=== PATIENT | female | born 1965 | race Caucasian/White ===

== ENCOUNTER 2019-08-08 06:15 | Inpatient (IN) | payer OTHER, BC, SELFPAY ==
[2019-08-08] VITALS (7 sets, daily range): BP systolic 92–125; BP diastolic 53–67; PULSE 81–105; RESP 16–20; TEMP 37.1–39.1; O2SAT 93–97; BMI 34.7; BMI 34.9
[2019-08-08 06:26] LABS: Bedside Glucose 218 mg/dL (70-110)
[2019-08-08] MEDS: Ondansetron 4 MG/2 ML Vial IV (06:34)
[2019-08-08] MEDS: 0.9% Normal Saline 1,000 ML 1000 ML IV (06:34)
--- NOTE | 2019-08-08 06:47 | ED.DCSUM_ITS ---
History of Present Illness Chief Complaint: Nausea/Vomiting Narrative: Patient presenting for evaluation secondary to nausea and vomiting and high blood sugars. Patient reports that she is a type II diabetic, but has not been taking her diabetes medication for more than 2 years. She reports that since Tuesday she has been dealing with nausea and vomiting. The symptoms are intermittent, vomiting is nonbloody nonbilious and has been associated with crampy intermittent abdominal pain that is improved with a heating pad. Patient denies any fevers. She denies any diarrhea. Patient denies any sick contacts. She denies any chest pain or shortness of breath associated with this. She was concerned because her blood sugars were in the 200s, although she has not checked them for years and started checking them this week so she does not know what they have been running prior to this. Past Medical History - Allergies and Home Meds Allergies/Adverse Reactions: Allergies metformin [From Glucophage] Adverse Reaction (Verified 08/08/19 06:18) Rash tramadol Adverse Reaction (Verified 08/08/19 06:18) Vomiting Primary Care Physician: NOT,DEFINED [NON-STAFF] - Smoking Status: Never smoker Review of Systems All systems negative except as indicated General: Denies: Chills, Fever, Sweats Eyes: Denies: Visual changes - bilaterally, Diplopia ENT: Denies: Rhinorrhea, Sore throat Cardiovascular: Denies: Chest pain, Palpitations Respiratory: Denies: Dyspnea, Cough, Dyspnea on exertion Gastrointestinal: Reports: Abdominal pain, Nausea, Vomiting Genitourinary: Denies: Dysuria, Hematuria, Frequency Musculoskeletal: Denies: Back pain, Extremity Pain Skin: Denies: Rash, Wounds Neurological: Denies: Headache, Weakness, Numbness Physical Exam Vital Signs/Narrative: Vital Signs Temp Pulse Resp BP Pulse Ox 08/08/19 06:16 99.2 F H 105 H 18 125/63 H 97 Inital Vital Signs reviewed: Yes General: Well nourished, Well developed, No Acute Distress Head: Normocephalic, Atraumatic Eyes: Perrl, EOMI ENT: Moist mucous membranes, No rhinorrhea Neck: Supple, Nontender Cardiovascular: Regular rhythm, No murmurs, Tachycardia Respiratory: No distress, CTA bilaterally, Chest nontender Abdomen: Soft, Nontender, Nondistended, Normal bowel sounds Back: Nontender, Normal Inspection Extremities: Nontender, No edema Skin: Normal color, No rash Neurological: Alert, Oriented x3, Cranial nerves II-XII grossly intact, Normal Strength, Normal Sensation Psychological: Normal affect, Normal Mood Diagnostic/Tx/Re-eval - Medical Decision Making Patient presented secondary to nausea and vomiting. IV was established she was given Zofran and fluids. Laboratory work-up shows pancytopenia with blast cells. Patient was also noted to have acute kidney injury with a creatinine of 2 with a baseline of 0.7. Ketones were found to be negative. Patient was start ed on fluid resuscitation. I believe the patient requires admission at this point. Patient will be admitted for further work-up and treatment. ED Disposition - Plan for ED Patient: Disposition: Acute Care [facility] Diagnosis: Pancytopenia, Acute kidney injury
[2019-08-08 06:54] LABS: Hematocrit 35.9 % (37-47); Hemoglobin 11.8 g/dL (12.0-15.0); Mean Corp Hgb Conc 32.9 g/dL (32-36); Mean Corpuscular Hgb 28.5 pg (27.0-32.0); Mean Corpuscular Volume 86.7 fL (81-99); Mean Platelet Vol. 11.8 fl (6.2-12.0); POSITIVE COUNT YES; POSITIVE DIFFERENTIAL YES; POSITIVE MORPHOLOGY YES; Platelet Count 53 K/mm3 (150-450); RBC Distribution Width CV 13.6 % (11.6-14.6); RBC Distribution Width SD 43.1 fl (35.1-43.9); Red Blood Count 4.14 M/mm3 (4.2-5.4)
[2019-08-08 06:56] LABS: Differential Indicated MANUAL DIFF
[2019-08-08 07:11] LABS: ALB/GLOB Ratio 0.8 RATIO (0.9-2.4); AST(SGOT) 54 U/L (15-37); Alanine Aminotransfer ALT/SGPT 45 U/L (13-56); Albumin, Serum 3.3 g/dL (3.2-5.0); Alkaline Phosphatase 169 U/L (45-117); Anion Gap 8 (5-15); BUN 48 mg/dL (7-18); Chloride 97 mmol/L (98-107); Creatinine, Serum 2.09 mg/dL (0.55-1.02); EST Glomerular Filtration Rate 26 mL/min (>60); Est Glom Filt Rate - Afr Amer 32 mL/min (>60); Estimated Creatinine Clearance 26.26 ml/min; Globulin 3.9 g/dL (2.2-4.2); Glucose 245 mg/dL (74-106); Lipase 46 U/L (73-393); Potassium 3.3 mmol/L (3.5-5.1); Protein, Total 7.2 g/dL (6.4-8.2); Sodium Level 132 mmol/L (136-145)
[2019-08-08 07:19] LABS: Blast 1 % (0-0); Lymphocyte 8 % (19-41); Metamyelocyte 3 % (0-1); Monocyte 6 % (0-10); Neutrophil-Band 4 % (0-5); Neutrophil-Segmented 78 % (47-70); Platelet Estimate MOD DEC (ADEQ); Total Cells Counted 100 (MANUAL DIFF)
[2019-08-08 07:20] LABS: Anisocytosis RARE; Hypochromasia RARE
[2019-08-08 07:21] LABS: Absolute Neutrophil Count 2.4 X10^3/uL (2.0-7.7); Neutrophil # 2.43 X10^3/uL (2.7-7.7)
[2019-08-08 07:22] LABS: Absolute Lymphocyte Count 0.24 X10^3/uL (0.83-4.51); Lymphocyte # 0.24 X10^3/ul (4.0); Monocyte# 0.18 X10^3/uL
--- NOTE | 2019-08-08 07:32 | NURSING ---
DR ARINA ZAMAN
--- NOTE | 2019-08-08 07:40 | PCM.HP.STD ---
Problem List (1) DM2 (diabetes mellitus, type 2) Status: Chronic Qualifiers: Diabetes mellitus [facility] insulin use: without buttermaker helper use Diabetes mellitus complication status: with hyperglycemia Qualified Code(s): E11.65 - Type 2 diabetes mellitus with hyperglycemia (2) BMI 34.0-34.9,adult Status: Chronic (3) Acute kidney injury Status: Acute (4) Pancytopenia Status: Acute History of Present Illness Date of Admission: 08/08/19 Chief Complaint: Nausea and vomiting The patient is a 53 year old F last medical history single for diabetes mellitus type 2 apparently noncompliant with therapy who presented to the emergency department with intractable nausea and vomiting and elevated blood glucose. Patient symptoms started 3 days prior to being admitted. She states she is not been able to keep any food down. She also admitted to taking ibuprofen for generalized aches. In view of worsening condition patient elected to present to the emergency department. Patient was found to have glucose levels greater than 200. She was also found to be in acute kidney injury started on IV fluids admitted to regular nursing floor for further management. Prior to patient being admitted patient was also found to be pancytopenic. Past Medical History Past Medical History (Chronic Problems): Chronic Problems DM2 (diabetes mellitus, type 2) (Chronic) BMI 34.0-34.9,adult (Chronic) Allergies metformin [From Glucophage] Adverse Reaction (Verified 08/08/19 06:18) Rash tramadol Adverse Reaction (Verified 08/08/19 06:18) Vomiting Home Medications: Ambulatory Orders Medication Instructions Recorded Aspirin [Aspirin, Baby] 81 mg PO DAILY@0800 08/08/19 Multivitamin/Iron/Folic Acid 1 ea PO DAILY 08/08/19 [Centrum Adults Tablet] Ondansetron [Zofran Odt] 4 mg PO Q6H PRN PRN 08/08/19 Pioglitazone HCl 30 mg PO QHS 08/08/19 Ramipril 5 mg PO DAILY 08/08/19 Smoking Status: Never smoker - *Family History Maternal History Items: Diabetes Paternal History Items: Diabetes, Heart Disease - Dad from complications of congestive heart failure Review of Systems Constitutional: Reports: Anorexia, Malaise. Denies: Chills, Fever, Night Sweats, Weight Change HEENT: Denies: Head Aches, Sinus Congestion, Sinus Drainage Cardiovascular: Denies: Chest Pain, Orthopnea, Palpitations, Paroxysmal Noc. Dyspnea Respiratory: Denies: Cough, Shortness of breath at rest, Shortness of breath upon exertion, Sputum production Gastrointestinal: Reports: Nausea, Vomiting. Denies: Abdominal Pain, Hematemesis, Hematochezia, Melena Genitourinary: Denies: Dysuria, Frequency, Hematuria, Urgency Musculoskeletal: Denies: Joint Pain, Joint Tenderness Skin: Denies: Rash Neurological: Denies: Focal weakness, Numbness, Tingling Psychiatric: Denies: Homicidal Ideations, Suicidal Ideations Hematologic/ Lymphatic: Denies: Easy Bruising, Easy Bleeding VTE Information - Inpt Only VTE Present on Admission: No VTE Mechan Device Prophylaxis: None VTE Pharm Prophylaxis ordered?: No Reason prophylaxis not ordered:: Medical Contraindication Patient Problems: Active and Suspected Problems Pancytopenia (Acute) Acute kidney injury (Acute) Objective: GENERAL: cooperative appears ill looking HEENT: Atraumatic; EYES; Anicteric, Normal Conjunctiva NECK; supple, normal thyroid, RESPIRATORY: Diminished to auscultation CARDIOVASCULAR: Regular S1 S2, GI: soft, normoactive bowel sounds, : No Renal angle tenderness; EXTREMITIES: No edema, no clubbing, MUSCULOSKELETAL: no muscle waisting NEURO: Awake; no lateralizing signs. SKIN: No Rash PSYCH; Flat affect - Physical Exam Vitals/I&O's: Vital Signs Temp Pulse Resp BP Pulse Ox 99.2 F H 105 H 18 125/63 H 97 08/08/19 06:16 08/08/19 06:16 08/08/19 06:16 08/08/19 06:16 08/08/19 06:16 Oxygen Delivery Method Room Air Weight: 91.7 kg Body Mass Index (BMI) 34.7 Finger Stick Blood Glucose 218 Laboratory Results 08/08/19 06:20: POC Glucose 218 H 08/08/19 06:29: WBC 3.0 L, RBC 4.14 L, Hgb 11.8 L, Hct 35.9 L, MCV 86.7, MCH 28.5, MCHC 32.9, RDW Std Deviation 43.1, RDW Coeff of Divya 13.6, Plt Count 53 L, MPV 11.8, Neut % (Auto) Not Reportable, Absolute Neuts (auto) 2.4, Absolute Lymphs (auto) 0.24 L, Total Counted 100, Neutrophils % (Manual) 78 H, Band Neutrophils % 4, Lymphocytes % (Manual) 8 L, Monocytes % (Manual) 6, Metamyelocytes % 3 H, Blast Cells % 1 H*, Diff Path Review May foll, Platelet Estimate MOD DEC, Hypochromasia RARE, Anisocytosis RARE 08/08/19 06:29: Sodium 132 L, Potassium 3.3 L, Chloride 97 L, Carbon Dioxide 27.0, Anion Gap 8, BUN 48 H, Creatinine 2.09 H, Estim Creat Clear Calc 26.26, Est GFR (MDRD) Af Amer 32 L, Est GFR (MDRD) Non-Af 26 L, BUN/Creatinine Ratio 23.0 H, Glucose 245 H, Calcium 9.0, Total Bilirubin 0.80, AST 54 H, ALT 45, Alkaline Phosphatase 169 H, Total Protein 7.2, Albumin 3.3, Globulin 3.9, Albumin/Globulin Ratio 0.8 L, Lipase 46 L 08/08/19 06:29: Acetone Level NEGATIVE Assessment/Plan All Active Problems Pancytopenia (Acute) Acute kidney injury (Acute) Patient is a 53-year-old lady with history of diabetes mellitus type 2 noncompliant with therapy presented with intractable nausea and vomiting 1. Intractable nausea vomiting ?suspected to be secondary to gastritis possibly NSAID induced gastritis patient was taking ibuprofen prior to her admission discontinued. Started on PPI 2. Acute kidney injury Suspected to be combination of dehydration as well as NSAID induced nephropathy. On IV fluids with subsequent monitoring of electrolyte 2. Diabetes mellitus type 2 ?With complications including hyperglycemia as a result of noncompliance. Patient started on Accu-Cheks before meals and at bedtime with sliding scale coverage as well as long-acting insulin. Also placed on 1800 ADA diet and ordered hemoglobin A1c 4. Pancytopenia (thrombocytopenia, leukopenia, as well as anemia) ?Pressure diagnoses include bone marrow suppression as well as nonalcoholic fatty liver disease. Admitted to regular nursing floor ordered CBC with differential for monitoring consult also placed to oncology 5. Nonalcoholic fatty liver disease -per history, this may be contributing to patient's pancytopenia 6. Obesity with BMI of 34.9 ?Weight loss advised 7. DVT prophylaxis Did encourage early ambulation avoided the use of chemoprophylaxis in view of patient's low platelet count Code Visit Inpatient E&M: 15934 Init Hosp L3
--- NOTE | 2019-08-08 07:41 | NURSING ---
MED SURG TIMBO, PANCYTOPENIA KITTOE
--- NOTE | 2019-08-08 08:30 | US_ITS ---
STUDY: RENAL ULTRASOUND - COMPLETE REASON FOR EXAM: Female, 53 years old. renal failure CLINICAL HISTORY: 53 years Female, renal failure COMPARISON: None TECHNIQUE: Serial longitudinal and transverse scans of the kidneys were obtained utilizing a real-time sector scanner. FINDINGS: The right and left kidneys were examined and have the following measurements: Right Kidney: 10.7 cm. x 6.1 cm. x 6.1 cm. in size with a cortex measuring 0.95 cm in thickness. Left Kidney: 13.0 cm. x 6.4 cm. x 6.6 cm. in size with a cortex measuring 1.8 cm in thickness. No fluid is noted in Morison''s pouch. The right renal parenchyma has a normal echogenic relationship to the liver. The right renal contour is smooth and no evidence hydronephrosis is identified. There is normal Doppler flow to the right kidney. Left renal contour is smooth and no evidence of hydronephrosis is identified. There is normal Doppler flow to the left kidney. The urinary bladder is identified and contains 100 cc of urine. US/Kidney and Bladder IMPRESSION: The right kidney is smaller than the left, in this otherwise normal bilateral renal ultrasound. Electronically Signed: Yovani Barahona, at 12:01 EST Tel , Service support ,
[2019-08-08 10:43] LABS: AST(SGOT) 55 U/L (15-37); Alanine Aminotransfer ALT/SGPT 45 U/L (13-56); Albumin, Serum 3.5 g/dL (3.2-5.0); Alkaline Phosphatase 148 U/L (45-117); Bilirubin, Direct 0.49 mg/dL (0.00-0.30); Protein, Total 6.5 g/dL (6.4-8.2)
[2019-08-08 10:47] LABS: Pathologist Review Reviewed
[2019-08-08] MEDS: Insulin Lispro 100 UNIT/ML INSULN.PEN SC ×3 (11:23→22:58)
[2019-08-08] MEDS: 0.9% Saline Lock 10 ML Syringe IV ×2 (11:27→15:58)
[2019-08-08 11:35] LABS: Bedside Glucose 272 mg/dL (70-110)
--- NOTE | 2019-08-08 15:51 | CON.PCM_ITS ---
Subjective Date of Service:: 08/08/19 Chief Complaint: Pancytopenia History of Present Illness: Ms. Amarilys Calles is a 53-year-old woman with a past medical history positive for diabetes mellitus type 2, and fatty liver who presented to [facility] emergency department earlier this morning with complaints of intractable nausea vomiting and elevated blood sugars. CBC in the emergency department revealed pancytopenia as evidenced by white blood cell count 3, hemoglobin 11.8, and platelet count of 53,000, with metamyelocytes and blast count of 1%. Labs also revealed creatinine 2.09 notably normal calcium and normal protein and globulin levels. Patient was subsequently admitted and hematology consult requested. Upon entering the room patient is sitting upright in bed and is just produced emesis, consisting of applesauce she ate a moment earlier. States it has been a long time since she was evaluated by her primary care or system development manager. States she has been on insulin from 198912/12/2018, Lantus and log and also Actos but has been off of her medications for approximately 9 months citing I just ran out. Reports that she was in her usual state of health until 08/06/2019 when she developed nausea and subsequently has vomited approximately 5-6 times per day almost immediately after eating. She specifically denies fevers, recent weight loss, difficulty swallowing, headaches, diarrhea, and abdominal cramping. Last bowel movement was 08/07/2019. Reports that she has never been told her blood counts were low. Patient has undergone carpal tunnel surgery and also 1 vaginal delivery denies any episodes of excessive bleeding postsurgically or . She is not a smoker. No EtOH use. Admits to taking significant amounts of ibuprofen daily x2 weeks for generalized body aches. No family history of bleeding disorders, hypercoagulability or malignancy. Admits that it has been greater than 5 years since her last screening mammogram. Patient does not perform breast self exams monthly. Did undergo colonoscopy at age 48 and states it was normal. Past Medical History: Chronic Problems DM2 (diabetes mellitus, type 2) (Chronic) BMI 34.0-34.9,adult (Chronic) Past Medical/Surgical History: Past Medical History - Most Recent Inpatient Visit Past Medical History Start: 08/08/19 08:30 Text: Status: Complete Freq: ONCE Protocol: Document 08/08/19 08:30 (Rec: 08/08/19 08:53 [id number]) BMI Required to complete PMH What is Patient's BMI 34.9 Past Medical History Unable History Recalled No Query Text:Pt Unable/Family Not Present Neurologic Medical History Hx Stroke/TIA No Hx Dementia/Alzheimer's No Hx Parkinson's Disease No Hx Seizures No Hx Multiple Sclerosis No Hx Migraines No Cardiac Medical History VTE Present on Admission No Hx of Deep Vein Thrombosis/VTE/PE No Hx Hypertension Yes Hx Chest Pain/Angina No Hx Heart Attack No Hx Cardiac Surgery/Stents/Etc. No Hx Heart Failure No Hx Pacemaker/AICD No Hx Irregular Heartbeat and/or Afib No Hx Anticoagulant Therapy Yes: baby asa Query Text:(Coumadin, Aspirin, Plavix, Xarelto, etc.) Hx Pain in Legs when Walking/Leg Cramps No Respiratory Medical History Hx COPD No Hx Emphysema No Hx Smoking No Smoking Status Never smoker Hx Tobacco Use in last 12 months No Hx Sleep Apnea No Do you snore loudly (louder than talking No or can be heard through closed doors)? Do you often feel tired/ fatigued/ No sleepy during daytime? Has anyone observed you stop breathing No during sleep? STOP Results Negative GI Medical History Hx Ulcer No Hx Hepatitis No Hx Cirrhosis No Hx GI Bleed No Hx Unplanned Weight Loss No Genitourinary Medical History Indwelling Catheter in Place on Arrival/ No Admission Hx Renal Disease No Hx Dialysis No Musculoskeletal History Hx Arthritis No Hx Rheumatoid Arthritis No Endocrine Medical History Hx Diabetes Yes Hx Thyroid Disease No Hematologic Medical History Hx of Blood Transfusion No Hx of Transfusion in last 3 Months No Ever experience any problems with No transfusion(s)? Hx of Preganancy in last 3 Months N/A Nurse Filling Out Transfusion & SHESS Questions: Date: 08/08/19 Time: 08:51 Psycho/Social Medical History Hx Depression No Hx Anxiety No Hx Behavior Disorder No Hx Alcohol Use Yes: socially Hx Substance Use No Other Medical History Hx Blood Disorders No Hx Anemia No Hx Cancer No Hx Drug Resistant Organism No Wound/Pressure Injury Present on Arrival No /Admission Query Text:If yes, chart assessment in Shift/Clinical Findings Central Line/PICC/VAD Present on Arrival No /Admission Antibiotics within last 7 days? No Methicillin Resistant Staphylococcus aureus Screening Active MRSA No Risk for Readmission Number of Risk Factors 2 At Risk for Readmission Patient is At Risk For Readmission Patient is eligible for Call Back Y Maternal Family History: Diabetes Paternal Family History: Diabetes, Heart Disease - Dad from complications of congestive heart failure - Social History Smoking Status: Never smoker Allergies/Adverse Reactions: Allergy/AdvReac Type Severity Reaction Status Date / Time metformin [From Glucophage] AdvReac Rash Verified 08/08/19 06:18 tramadol AdvReac Vomiting Verified 08/08/19 06:18 Review of Systems Constitutional:: Reports: Weakness. Denies: Fever, Sweats, Weight loss, Appetite change, Chills Cardiovascular:: Denies: Chest pain, Palpitations, Dyspnea on exertion, Orthopnea, PND, Shortness of breath Respiratory: Denies: Cough, Hemoptysis, Shortness of Breath, Wheezing Gastrointestinal:: Reports: Nausea, Vomiting. Denies: Abdominal pain, Diarrhea, Constipation, Hematochezia Genitourinary: Denies: Dysuria, Hematuria, 15, Flank pain Musculoskeletal:: Denies: Back pain, Myalgia, Arthralgia Skin: Denies: Rash, Skin Changes, Wounds Neurological:: Denies: Headache, Dizziness, Numbness, Tingling, Visual changes, Tinnitus, Hearing loss Psychiatric: Denies: Anxiety, Depression, Homicidal Ideations, Suicidal Ideations Vital Signs Height 5 ft 4 in Weight: 203 lb 7.787 oz Weight in Pounds 203.5 lbs Pulse Ox 97 Temperature 99.0 F Pulse Rate 81 Respiratory Rate 18 Blood Pressure 105/53 Blood Pressure Position Semi-Fowlers - Physical Exam General: Alert, Oriented x3, No apparent distress HEENT: Atraumatic, PERRLA, EOMI, Normocephalic Oropharynx:: Negative for: Dry mucosa Neck:: Supple, Trachea midline. Negative for: JVD, bilateral Cardiac:: Regular rate, Regular rhythm, Normal S1, Normal S2. Negative for: Murmur Lungs: Clear to auscultation, Excusion symmetrical. Negative for: Rhonchi, Wheezes Abdomen:: Bowel sounds x 4, Soft, Non-distended, Tender - Bilateral lower quadrants. Negative for: Hepatosplenomegaly Extremities:: Negative for: Cyanosis, Edema Neurological: Neuro grossly intact Skin:: Negative for: Lesions, Rash, Petechiae, Ecchymosis Psychiatric:: Appropriate affect, Euthymic Lymphatics:: Negative for: Cervical lymphadenopathy, Supraclavicular lymphadenopathy, Axillary lymphadenopathy Breast:: - - Declined exam Laboratory Data: Laboratory Tests 08/08/19 08/08/19 08/08/19 Range/Units 11:22 06:29 06:29 WBC (4.4-11.0) K/mm3 RBC (4.2-5.4) M/mm3 Hgb (12.0-15.0) g/dL Hct (37-47) % MCV (81-99) fL MCH (27.0-32.0) pg MCHC (32-36) g/dL RDW Std Deviation (35.1-43.9) fl RDW Coeff of Divya (11.6-14.6) % Plt Count (150-450) K/mm3 MPV (6.2-12.0) fl Neut % (Auto) Absolute Neuts (auto) (2.0-7.7) X10^3/uL Absolute Lymphs (auto) (0.83-4.51) X10^3/uL Total Counted (MANUAL DIFF) Neutrophils % (Manual) (47-70) % Band Neutrophils % (0-5) % Lymphocytes % (Manual) (19-41) % Monocytes % (Manual) (0-10) % Metamyelocytes % (0-1) % Blast Cells % (0-0) % Diff Path Review Platelet Estimate (ADEQ) Hypochromasia Anisocytosis Sodium (136-145) mmol/L Potassium (3.5-5.1) mmol/L Chloride (98-107) mmol/L Carbon Dioxide (21.0-32.0) mmol/L Anion Gap (5-15) BUN (7-18) mg/dL Creatinine (0.55-1.02) mg/dL Estim Creat Clear Calc ml/min Est GFR (MDRD) Af Amer (>60) mL/min Est GFR (MDRD) Non-Af (>60) mL/min BUN/Creatinine Ratio (10-20) RATIO Glucose (74-106) mg/dL Calcium (8.5-10.1) mg/dL Total Bilirubin 1.00 (0.20-1.00) mg/dL Direct Bilirubin 0.49 H (0.00-0.30) mg/dL AST 55 H (15-37) U/L ALT 45 (13-56) U/L Alkaline Phosphatase 148 H (45-117) U/L Total Protein 6.5 (6.4-8.2) g/dL Albumin 3.5 (3.2-5.0) g/dL Globulin 3.0 (2.2-4.2) g/dL Albumin/Globulin Ratio (0.9-2.4) RATIO Lipase (73-393) U/L Acetone Level NEGATIVE (NEG) POC Glucose 272 H (70-110) mg/dL 08/08/19 08/08/19 08/08/19 Range/Units 06:29 06:29 06:20 WBC 3.0 L (4.4-11.0) K/mm3 RBC 4.14 L (4.2-5.4) M/mm3 Hgb 11.8 L (12.0-15.0) g/dL Hct 35.9 L (37-47) % MCV 86.7 (81-99) fL MCH 28.5 (27.0-32.0) pg MCHC 32.9 (32-36) g/dL RDW Std Deviation 43.1 (35.1-43.9) fl RDW Coeff of Divya 13.6 (11.6-14.6) % Plt Count 53 L (150-450) K/mm3 MPV 11.8 (6.2-12.0) fl Neut % (Auto) Not Reportable Absolute Neuts (auto) 2.4 (2.0-7.7) X10^3/uL Absolute Lymphs (auto) 0.24 L (0.83-4.51) X10^3/uL Total Counted 100 (MANUAL DIFF) Neutrophils % (Manual) 78 H (47-70) % Band Neutrophils % 4 (0-5) % Lymphocytes % (Manual) 8 L (19-41) % Monocytes % (Manual) 6 (0-10) % Metamyelocytes % 3 H (0-1) % Blast Cells % 1 H* (0-0) % Diff Path Review Reviewed Platelet Estimate MOD DEC (ADEQ) Hypochromasia RARE Anisocytosis RARE Sodium 132 L (136-145) mmol/L Potassium 3.3 L (3.5-5.1) mmol/L Chloride 97 L (98-107) mmol/L Carbon Dioxide 27.0 (21.0-32.0) mmol/L Anion Gap 8 (5-15) BUN 48 H (7-18) mg/dL Creatinine 2.09 H (0.55-1.02) mg/dL Estim Creat Clear Calc 26.26 ml/min Est GFR (MDRD) Af Amer 32 L (>60) mL/min Est GFR (MDRD) Non-Af 26 L (>60) mL/min BUN/Creatinine Ratio 23.0 H (10-20) RATIO Glucose 245 H (74-106) mg/dL Calcium 9.0 (8.5-10.1) mg/dL Total Bilirubin 0.80 (0.20-1.00) mg/dL Direct Bilirubin (0.00-0.30) mg/dL AST 54 H (15-37) U/L ALT 45 (13-56) U/L Alkaline Phosphatase 169 H (45-117) U/L Total Protein 7.2 (6.4-8.2) g/dL Albumin 3.3 (3.2-5.0) g/dL Globulin 3.9 (2.2-4.2) g/dL Albumin/Globulin Ratio 0.8 L (0.9-2.4) RATIO Lipase 46 L (73-393) U/L Acetone Level (NEG) POC Glucose 218 H (70-110) mg/dL Diagnostic Data: Diagnostic Data Renal Ultrasound 08/08/19 08:30 IMPRESSION: The right kidney is smaller than the left, in this otherwise normal bilateral renal ultrasound. Electronically Signed: Yovani Brooklyn, at 12:01 EST Tel , Service support , Assessment and Plan Ms. Amarilys Calles is a 53-year-old woman with a past medical history positive for diabetes mellitus type 2, and fatty liver who has been admitted to [facility] through the emergency department for management of intractable nausea and vomiting and new finding of pancytopenia. 1. Pancytopenia-as evidenced by white blood cell count 3, hemoglobin 11.8, platelets 53,000. CBC notable for blast count 1% and metamyelocytes. Patient does not have any previous CBCs on record here for comparison and per patient self-report has never been told that her blood counts were abnormal. Orders placed for serum protein electrophoresis with immunofixation, free light chain assay, LDH, iron studies, PT, PTT, vitamin B, folate, TSH and bone marrow biopsy. 2. Abd pain-bilateral lower quadrants tender on exam. No hepatosplenomegaly appreciated. May consider CT abdomen and pelvis. Was discussed with Dr. Corbett who was in agreement with aforementioned plan. Marzena Llanos, MSN, [employer], AOCNP Medications: Prescriptions This Visit Medication Instructions Recorded Aspirin [Aspirin, Baby] 81 mg PO DAILY@0800 08/08/19 Multivitamin/Iron/Folic Acid 1 ea PO DAILY 08/08/19 [Centrum Adults Tablet] Ondansetron [Zofran Odt] 4 mg PO Q6H PRN PRN 08/08/19 Pioglitazone HCl 30 mg PO QHS 08/08/19 Ramipril 5 mg PO DAILY 08/08/19 Medications Added to Medication List This Visit Category Date Time Status 0.9% Normal Saline 250 ml Med 08/08/19 08:55 Active IV 15 mls/hr 0.9% Normal Saline 250 ml Med 08/08/19 08:55 Active IV 15 mls/hr 0.9% Saline Lock Med 08/08/19 08:55 Active 10 - 40 ml IV UD PRN Acetaminophen [Tylenol] Med 08/08/19 08:30 Active 650 mg PO Q6H PRN PRN Dextrose 10%-Water 250 ml Med 08/08/19 08:45 Active IV 999 mls/hr Glucagon Med 08/08/19 08:30 Active 1 mg IM .X1 PRN Influenza Vaccine (36Mos+)/Pf [Flucelvax /Fluzone 2018- Med 08/09/19 10:00 Onc e 2020] 0.5 ml IM .ONCE ONE Insulin Glargine [Lantus ([facility])] Med 08/08/19 08:30 Active 10 units SC BREAKFAST Insulin Lispro [Humalog kwikpen ([facility])] Med 08/08/19 11:00 Active See Protocol SC ACHS KCL 20MEQ in 0.9% NS 1,000 ml Med 08/08/19 09:00 Active IV 150 mls/hr Mag Hydrox/Al Hydrox/Simeth [Mylanta II] Med 08/08/19 08:30 Active 30 ml PO Q6H PRN PRN Magnesium Hydroxide [Milk Of Magnesia] Med 08/08/19 08:30 Active 30 ml PO DAILY PRN PRN Melatonin Med 08/08/19 08:30 Active 3 mg PO QHS PRN PRN Ondansetron [Zofran] Med 08/08/19 08:30 Active 4 mg IV Q8H PRN PRN Pantoprazole Sodium [Protonix] 40 mg Med 08/08/19 10:00 Active 0.9% Normal Saline 100 ml IV Q12 proCHLORPERazine IV [Compazine IV] Med 08/08/19 08:30 Active 5 mg IV Q4H PRN PRN Primary Care Provider: No Primary Care Phys Referring Provider:
[2019-08-08] MEDS: proCHLORPERazine 10 MG/2 ML Vial 5 MG IV (15:58)
[2019-08-08 17:06] LABS: Bedside Glucose 228 mg/dL (70-110)
[2019-08-08 17:16] LABS: Ferritin 214 ng/mL (8-252); Iron 8 ug/dL (50-170); Iron Binding Capacity,Total 281 ug/dL (250-450); LDH 362 U/L (84-246); PERCENT IRON SATURATION 2.8 % (15.0-55.0); Thyroid Stim Hormone (TSH) 2.27 uIU/mL (0.358-3.74)
[2019-08-08 17:47] LABS: International Normalized Ratio 1.2; Prothrombin Time (Protime)PT. 14.7 SECONDS (11.7-14.9)
[2019-08-08 17:48] LABS: Partial Thromboplast Time 34.3 Seconds (24.1-36.2)
[2019-08-08] MEDS: Acetaminophen 325 MG Tablet 650 MG PO (17:52)
[2019-08-08 18:06] LABS: Vitamin B12 856 pg/mL (211-911)
[2019-08-08 23:16] LABS: Bedside Glucose 233 mg/dL (70-110)
[2019-08-09] VITALS (33 sets, daily range): BP systolic 85–144; BP diastolic 42–97; PULSE 83–139; RESP 18–40; TEMP 37.3–40.2; O2SAT 92–100
[2019-08-09] MEDS: 0.9% Saline Lock 10 ML Syringe IV ×2 (02:47→13:59)
[2019-08-09] MEDS: Ondansetron 4 MG/2 ML Vial IV (02:47)
[2019-08-09] MEDS: Acetaminophen 325 MG Tablet 650 MG PO ×2 (02:49→08:49)
[2019-08-09 05:32] LABS: Absolute Neutrophil Count 2.5 X10^3/uL (2.0-7.7); Basophil# 0.02 X10^3/uL; Basophil% 0.7 % (0-1); Eosinophil# 0.19 X10^3/uL; Eosinophils% 6.6 % (0-5); Hematocrit 30.3 % (37-47); Hemoglobin 9.9 g/dL (12.0-15.0); Lymphocyte % 3.4 % (19-41); Mean Corp Hgb Conc 32.7 g/dL (32-36); Mean Corpuscular Hgb 28.3 pg (27.0-32.0); Mean Corpuscular Volume 86.6 fL (81-99); Mean Platelet Vol. 10.2 fl (6.2-12.0); Monocyte# 0.12 X10^3/uL; Monocyte% 4.1 % (0-10); NRBC Flagged by Analyzer 0 % (0-5); Neutrophil # 2.46 X10^3/uL (2.7-7.7); Neutrophil % 84.9 % (47-70); POSITIVE COUNT YES; POSITIVE DIFFERENTIAL YES; POSITIVE MORPHOLOGY YES; RBC Distribution Width CV 14.1 % (11.6-14.6); RBC Distribution Width SD 44.7 fl (35.1-43.9); White Blood Count 2.9 K/mm3 (4.4-11.0)
[2019-08-09 05:40] LABS: Differential Indicated SCAN CRITERIA MET
[2019-08-09 05:41] LABS: Platelet Count 47 K/mm3 (150-450)
[2019-08-09 05:56] LABS: Anion Gap 8 (5-15); BUN 34 mg/dL (7-18); BUN/Creat Ratio 25.8 RATIO (10-20); Calcium,Total 8.1 mg/dL (8.5-10.1); Chloride 105 mmol/L (98-107); Creatinine, Serum 1.32 mg/dL (0.55-1.02); EST Glomerular Filtration Rate 44 mL/min (>60); Est Glom Filt Rate - Afr Amer 54 mL/min (>60); Estimated Creatinine Clearance 41.58 ml/min; Glucose 189 mg/dL (74-106); Potassium 3.9 mmol/L (3.5-5.1); Sodium Level 135 mmol/L (136-145)
[2019-08-09 06:05] LABS: Differential Comment SCANNED
[2019-08-09 06:06] LABS: Platelet Estimate MKD DEC (ADEQ)
[2019-08-09] MEDS: Insulin Lispro 100 UNIT/ML INSULN.PEN SC ×4 (06:38→21:19)
--- NOTE | 2019-08-09 06:49 | RAD_ITS ---
EXAM DESCRIPTION: PORTABLE AP CHEST CLINICAL HISTORY: 53 years Female, SOB SOB COMPARISON: None FINDINGS: The thorax is intact. The heart and mediastinum appear to be within normal limits. The lungs appear to be well areated without evidence of pneumonic consolidation or pleural effusion. RAD/Chest 1 View (Portable) IMPRESSION: Normal portable chest. Electronically Signed: Yovani Barahona, at 10:29 EST Tel , Service support ,
--- NOTE | 2019-08-09 07:01 | NURSING ---
upon entering pt's room noticed pt had labored breathing and audible wheezes. pt shivering vigorously. a/ox3. denies pain. assessment and vs completed. notified MD and remained with pt.
[2019-08-09 07:05] LABS: Bedside Glucose 173 mg/dL (70-110)
--- NOTE | 2019-08-09 07:26 | PCM.PN.HOSP ---
Patient Problems: Active and Suspected Problems Pancytopenia (Acute) Acute kidney injury (Acute) Reason for Visit: Follow-up acute kidney injury, respiratory distress, pancytopenia Subjective: Patient is a 53-year-old lady with history of diabetes mellitus type 2 noncompliant with therapy presented with intractable nausea and vomiting. Patient was found acute kidney injury started on IV fluids admitted to regular nursing floor for further management. Patient was also pancytopenic on admission consult placed to oncology Patient on the morning of 08/09/2019 was found to be dyspneic at rest with, tachycardic elevated temperature diagnosis of sepsis made. Cultures including acute respiratory viral panel as well as chest x-ray ordered. Patient transferred to the intensive care unit for further management Objective: GENERAL: Dyspneic at rest HEENT: Flushed EYES; Anicteric, Normal Conjunctiva NECK; supple, normal thyroid, RESPIRATORY: Diminished to auscultation CARDIOVASCULAR: Regular S1 S2, tachycardic GI: soft, normoactive bowel sounds, : No Renal angle tenderness; EXTREMITIES: No edema, no clubbing, MUSCULOSKELETAL: no muscle waisting NEURO: Awake; no lateralizing signs. SKIN: No Rash PSYCH; Flat affect Vitals/I&O's: Vital Signs Temp Pulse Resp BP Pulse Ox 102.3 F H 113 H 30 H 118/97 H 93 08/09/19 06:50 08/09/19 06:50 08/09/19 06:50 08/09/19 06:50 08/09/19 06:50 Oxygen Delivery Method Room Air Weight: 92.3 kg Body Mass Index (BMI) 34.9 Finger Stick Blood Glucose 218 Intake and Output for Last 24 Hours 08/07/19 08/08/19 08/09/19 23:59 23:59 23:59 Intake Total 3647.5 / 4167.5 / 2011. Output Total 500 / 500 Balance 3647.5 / 4017.5 1512.5 / 1512.5 Laboratory Results 08/08/19 06:29: Diff Path Review Reviewed 08/08/19 06:29: Total Bilirubin 1.00, Direct Bilirubin 0.49 H, AST 55 H, ALT 45, Alkaline Phosphatase 148 H, Total Protein 6.5, Albumin 3.5, Globulin 3.0 08/08/19 06:29: Iron 8 L, TIBC 281, Iron Saturation 2.8 L, Ferritin 214, Lactate Dehydrogenase 362 H, Folate 17.70, TSH 2.27 08/08/19 06:29: Vitamin B12 856 08/08/19 11:22: POC Glucose 272 H 08/08/19 16:04: POC Glucose 228 H 08/08/19 17:26: PT 14.7, INR 1.2, APTT 34.3 08/08/19 17:26: Total Protein (PEP) Pending, IgG Pending, IgA Pending, IgM Pending, Albumin (RA) Pending, Albumin/Globulin (RA) Pending, [id number] RA Pending, [id number] RA Pending, Beta-Globulins (RA) Pending, Gamma Globulins (RA) Pending, RA M-Hermelindo Pending, Free [place] LC, Quant Pending, Free Lambda LC, Quant Pending, Free [place]/Lambda Ratio Pending 08/08/19 22:57: POC Glucose 233 H 08/09/19 05:20: WBC 2.9 L, RBC 3.50 L, Hgb 9.9 L, Hct 30.3 L, MCV 86.6, MCH 28.3, MCHC 32.7, RDW Std Deviation 44.7 H, RDW Coeff of Divya 14.1, Plt Count 47 L*, MPV 10.2, Immature Gran % (Auto) 0.300, Neut % (Auto) 84.9 H, Lymph % (Auto) 3.4 L, Whitley % (Auto) 4.1, Eos % (Auto) 6.6 H, Baso % (Auto) 0.7, Absolute Neuts (auto) 2.5, Absolute Lymphs (auto) 0.10 L, Nucleated RBC % 0, Differential Comment SCANNED, Platelet Estimate MKD 08/09/19 05:20: Sodium 135 L, Potassium 3.9, Chloride 105, Carbon Dioxide 22.0, Anion Gap 8, BUN 34 H, Creatinine 1.32 H, Estim Creat Clear Calc 41.58, Est GFR (MDRD) Af Amer 54 L, Est GFR (MDRD) Non-Af 44 L, BUN/Creatinine Ratio 25.8 H, Glucose 189 H, Calcium 8.1 L 08/09/19 06:35: POC Glucose 173 H 08/09/19 07:10: Lactic Acid Pending Current Medications Acetaminophen (Tylenol) 650 mg PO Q6H PRN PRN PRN Reason: Pain Score 1-10/Temp > 100.7 F Last Admin: 08/09/19 02:49 Dose: 650 mg Documented by: Al Hydroxide/Mg Hydroxide (Mylanta Ii) 30 ml PO Q6H PRN PRN PRN Reason: Gastric Burning Glucagon () 1 mg IM .X1 PRN PRN Reason: Hypoglycemia Potassium Chloride/Sodium Chloride () 1,000 mls @ 150 mls/hr IV .[id number] AKUA Stop: 08/09/19 18:19 Last Admin: 08/09/19 06:19 Dose: 150 mls/hr Documented by: Dextrose (Dextrose 10%-Water) 250 mls @ 999 mls/hr IV .Q16M PRN; Protocol PRN Reason: HYPOGLYCEMIA Sodium Chloride () 250 mls @ 15 mls/hr IV .[id number] PRN PRN Reason: Saline Flush Sodium Chloride () 250 mls @ 15 mls/hr IV .[id number] PRN PRN Reason: Additional IVPB Infusion Pantoprazole Sodium 40 mg/ (Sodium Chloride) 110 mls @ 330 mls/hr IV Q12 AKUA Last Infusion: 08/08/19 23:22 Dose: Infused Documented by: Piperacillin Sod/Tazobactam (Sod 3.375 gm/ Sodium Chloride) 50 mls @ 12.5 mls/hr IV Q8 AKUA Vancomycin IV Pharmacy to Dose (1 ea/ Sodium Chloride) 500 mls @ 250 mls/hr IV X1 PRN; Protocol PRN Reason: Rx to Dose Influenza Virus Vaccine Quadrival (Flucelvax /Fluzone ) 0.5 ml IM .ONCE ONE Stop: 08/09/19 10:01 Insulin Glargine (Lantus (Bkc)) 10 units SC BREAKFAST [facility] Last Admin: 08/08/19 11:24 Dose: 10 u Documented by: Insulin Human Lispro (Humalog Kwikpen (Bkc)) 0 unit SC ACHS [facility]; Protocol Last Admin: 08/09/19 06:38 Dose: 2 u Documented by: Magnesium Hydroxide (Milk Of Magnesia) 30 ml PO DAILY PRN PRN PRN Reason: Constipation Melatonin (Melatonin) 3 mg PO QHS PRN PRN PRN Reason: INSOMNIA Ondansetron HCl (Zofran) 4 mg IV Q8H PRN PRN PRN Reason: NAUSEA/VOMITING Last Admin: 08/09/19 02:47 Dose: 4 mg Documented by: Prochlorperazine Edisylate (Compazine Iv) 5 mg IV Q4H PRN PRN PRN Reason: Breakthrough nausea/vomiting Last Admin: 08/08/19 15:58 Dose: 5 mg Documented by: Sodium Chloride () 10 - 40 ml IV UD PRN PRN Reason: SALINE FLUSH Last Admin: 08/09/19 02:47 Dose: 10 ml Documented by: STROKE Vital Signs/Narrative: Vital Signs Temp Pulse Resp BP Pulse Ox 08/09/19 06:50 102.3 F H 113 H 30 H 118/97 H 93 Medical Necessity - Tobacco Use Smoking Status: Never smoker Assessment/Plan All Active Problems Pancytopenia (Acute) Acute kidney injury (Acute) Patient is a 53-year-old lady with history of diabetes mellitus type 2 noncompliant with therapy presented with intractable nausea and vomiting 1. Intractable nausea vomiting ?suspected to be secondary to gastritis possibly NSAID induced gastritis patient was taking ibuprofen prior to her admission discontinued. Started on PPI -08/09/2019 patient still remains symptomatic 2. Acute kidney injury -Suspected to be combination of dehydration as well as NSAID induced nephropathy. On IV fluids with subsequent monitoring of electrolyte ?08/09/2019: Kidney function still remains impaired on IV fluids with subsequent monitoring of electrolyte 3. Sepsis (of undetermined etiology at this point) Patient on the morning of 08/09/2019 was found to be dyspneic at rest with, tachycardic with elevated temperature. Patient met the criteria for sepsis.. Cultures including acute respiratory viral panel as well as chest x-ray ordered. Patient transferred to the intensive care unit for further management. Patient was also started on broad-spectrum antibiotic therapy 4. Pancytopenia (thrombocytopenia, leukopenia, as well as anemia) ?Differential diagnoses include bone marrow suppression as well as nonalcoholic fatty liver disease. Admitted to regular nursing floor ordered CBC with differential for monitoring consult also placed to oncology ?08/09/2019 patient was seen in consultation by oncology the day prior notes and recommendations reviewed 5. Diabetes mellitus type 2 ?With complications including hyperglycemia as a result of noncompliance. Patient started on Accu-Cheks before meals and at bedtime with sliding scale coverage as well as long-acting insulin. Also placed on 1800 ADA diet and ordered hemoglobin A1c 6. Nonalcoholic fatty liver disease -per history, this may be contributing to patient's pancytopenia 7. Obesity with BMI of 34.9 ?Weight loss advised 8. DVT prophylaxis Did encourage early ambulation avoided the use of chemoprophylaxis in view of patient's low platelet count Code Visit Inpatient E&M: 89282 Subs Hosp L3
--- NOTE | 2019-08-09 07:29 | NURSING ---
called report to SANGITA Braden in ICU
[2019-08-09 07:51] LABS: Lactic Acid 1.2 mmol/L (0.4-1.9)
--- NOTE | 2019-08-09 08:03 | PCM.CON.CC ---
Reason for Consult Date of Consultation: 08/09/19 History of Present Illness: The patient is a 53-year-old female, with a history as outlined below, who initially presented to the emergency department on August 08 with complaints of nausea and vomiting of 3 days duration. The patient does have a history of diabetes mellitus, for which she is noncompliant with an outpatient diabetic regimen. The patient reported no shortness of breath or cough. She does not recall any recent sick contact exposure. On presentation to the emergency department, the patient was noted to be febrile and tachycardic. However, she was hemodynamically stable and maintaining appropriate oxygen saturations on room air. Initial laboratory evaluation revealed evidence of pancytopenia. Chemistry profile was notable for a sodium of 132, potassium of 3.3, chloride of 97, and creatinine of 2.09. Glucose was elevated to 245. Lipase was negative. Acetone level was negative. The patient received supplemental IV fluid hydration and antiemetics in the emergency department. She was then admitted to the medical surgical floor for further management of her acute kidney injury and pancytopenia. Overnight, the patient spiked a high-grade fever to 102.3 ?F. Her blood pressures were a bit on the tenuous side as well. Therefore, the patient was transferred to the medical intensive care unit for further management. Past Medical History Past Medical History (Chronic Problems): Chronic Problems DM2 (diabetes mellitus, type 2) (Chronic) BMI 34.0-34.9,adult (Chronic) Allergies metformin [From Glucophage] Adverse Reaction (Verified 08/08/19 06:18) Rash tramadol Adverse Reaction (Verified 08/08/19 06:18) Vomiting Home Medications: Ambulatory Orders Medication Instructions Recorded Aspirin [Aspirin, Baby] 81 mg PO DAILY@0800 08/08/19 Multivitamin/Iron/Folic Acid 1 ea PO DAILY 08/08/19 [Centrum Adults Tablet] Ondansetron [Zofran Odt] 4 mg PO Q6H PRN PRN 08/08/19 Pioglitazone HCl 30 mg PO QHS 08/08/19 Ramipril 5 mg PO DAILY 08/08/19 Smoking Status: Never smoker - *Family History Maternal History Items: Diabetes Paternal History Items: Diabetes, Heart Disease - Dad from complications of congestive heart failure Review of Systems Constitutional: Reports: Fever, Malaise Eyes: Denies: Blurred vision, Double vision HEENT: Denies: Head Aches, Sinus Congestion, Sinus Drainage Cardiovascular: Denies: Chest Pain, Palpitations Respiratory: Denies: Cough, Shortness of breath at rest, Sputum production Gastrointestinal: Reports: Nausea, Vomiting. Denies: Abdominal Pain, Diarrhea Genitourinary: Denies: Dysuria Musculoskeletal: Denies: Joint Pain, Joint Tenderness Skin: Denies: Rash, Wounds Neurological: Denies: Numbness, Tingling, Focal weakness Psychiatric: Denies: Anxiety, Depression, Homicidal Ideations, Suicidal Ideations Hematologic/ Lymphatic: Reports: Anemia Patient Problems: Active and Suspected Problems Pancytopenia (Acute) Acute kidney injury (Acute) Objective: The patient's most recent lab work, culture data and imaging studies have all been personally reviewed. - Physical Exam Vitals/I&O's: Vital Signs Temp Pulse Resp BP Pulse Ox 101.4 F H 100 28 H 109/60 94 08/09/19 07:44 08/09/19 07:44 08/09/19 07:44 08/09/19 07:44 08/09/19 07:44 Oxygen Delivery Method Room Air Weight: 203 lb 7.787 oz Body Mass Index (BMI) 34.9 Finger Stick Blood Glucose 218 Intake and Output for Last 24 Hours 08/07/19 08/08/19 08/09/19 23:59 23:59 23:59 Intake Total 3647.5 / 4167.5 2253.0 / 2253.0 Output Total 700 / 700 Balance 3647.5 / 4017.5 1553.0 / 1553.0 General: Alert, Oriented x3, Cooperative, No apparent distress HEENT: Atraumatic, PERRLA, Normocephalic Oral: No Gingival or Mucosal Lesions/ Ulcerations Neck: Supple, No Nodes, Trachea Midline Lungs: Normal air movement, No rhonchi, No wheeze, No rales Cardiovascular: Regular rate, Regular Rhythm, Normal S1, Normal S2 Abdomen: Bowel Sounds Present, Soft, Non Tender Extremities: No clubbing, No cyanosis, No edema Musculoskeletal: No Tenderness to Palpation of Joints or Extremities Lymphatic: No Cervical, Supraclavicular, or Inguinal Adenopathy Neurological: Neuro grossly intact Psych/Mental Status: Flat Affect Labs (Last 48 Hours) 08/08/19 08/08/19 08/08/19 06:20 06:29 06:29 WBC 3.0 L RBC 4.14 L Hgb 11.8 L Hct 35.9 L MCV 86.7 MCH 28.5 MCHC 32.9 RDW Std Deviation 43.1 RDW Coeff of Divya 13.6 Plt Count 53 L MPV 11.8 Immature Gran % (Auto) Neut % (Auto) Not Reportable Lymph % (Auto) [place] % (Auto) Eos % (Auto) Baso % (Auto) Absolute Neuts (auto) 2.4 Absolute Lymphs (auto) 0.24 L Total Counted 100 Neutrophils % (Manual) 78 H Band Neutrophils % 4 Lymphocytes % (Manual) 8 L Monocytes % (Manual) 6 Metamyelocytes % 3 H Blast Cells % 1 H* Nucleated RBC % Differential Comment Diff Path Review Reviewed Platelet Estimate MOD DEC Hypochromasia RARE Anisocytosis RARE PT INR APTT Sodium 132 L Potassium 3.3 L Chloride 97 L Carbon Dioxide 27.0 Anion Gap 8 BUN 48 H Creatinine 2.09 H Estim Creat Clear Calc 26.26 Est GFR (MDRD) Af Amer 32 L Est GFR (MDRD) Non-Af 26 L BUN/Creatinine Ratio 23.0 H Glucose 245 H Lactic Acid Calcium 9.0 Iron TIBC Iron Saturation Ferritin Total Bilirubin 0.80 Direct Bilirubin AST 54 H ALT 45 Alkaline Phosphatase 169 H Lactate Dehydrogenase Total Protein 7.2 Total Protein (PEP) Albumin 3.3 Globulin 3.9 Albumin/Globulin Ratio 0.8 L Lipase 46 L Vitamin B12 Folate TSH Acetone Level IgG IgA IgM Albumin (RA) Albumin/Globulin (RA) Qsfoo-9-Orqdelwbx RA Vqjrn-3-Krsusgbsj RA Beta-Globulins (RA) Gamma Globulins (RA) RA M-Hermelindo Free [place] LC, Quant Free Lambda LC, Quant Free [place]/Lambda Ratio POC Glucose 218 H 08/08/19 08/08/19 08/08/19 06:29 06:29 06:29 WBC RBC Hgb Hct MCV MCH MCHC RDW Std Deviation RDW Coeff of Divya Plt Count MPV Immature Gran % (Auto) Neut % (Auto) Lymph % (Auto) [place] % (Auto) Eos % (Auto) Baso % (Auto) Absolute Neuts (auto) Absolute Lymphs (auto) Total Counted Neutrophils % (Manual) Band Neutrophils % Lymphocytes % (Manual) Monocytes % (Manual) Metamyelocytes % Blast Cells % Nucleated RBC % Differential Comment Diff Path Review Platelet Estimate Hypochromasia Anisocytosis PT INR APTT Sodium Potassium Chloride Carbon Dioxide Anion Gap BUN Creatinine Estim Creat Clear Calc Est GFR (MDRD) Af Amer Est GFR (MDRD) Non-Af BUN/Creatinine Ratio Glucose Lactic Acid Calcium Iron 8 L TIBC 281 Iron Saturation 2.8 L Ferritin 214 Total Bilirubin 1.00 Direct Bilirubin 0.49 H AST 55 H ALT 45 Alkaline Phosphatase 148 H Lactate Dehydrogenase 362 H Total Protein 6.5 Total Protein (PEP) Albumin 3.5 Globulin 3.0 Albumin/Globulin Ratio Lipase Vitamin B12 Folate 17.70 TSH 2.27 Acetone Level NEGATIVE IgG IgA IgM Albumin (RA) Albumin/Globulin (RA) Qpesd-5-Pkibtbmmm RA Bipwu-1-Mdrssmdnt RA Beta-Globulins (RA) Gamma Globulins (RA) RA M-Hermelindo Free [place] LC, Quant Free Lambda LC, Quant Free [place]/Lambda Ratio POC Glucose 08/08/19 08/08/19 08/08/19 06:29 11:22 16:04 WBC RBC Hgb Hct MCV MCH MCHC RDW Std Deviation RDW Coeff of Divya Plt Count MPV Immature Gran % (Auto) Neut % (Auto) Lymph % (Auto) [place] % (Auto) Eos % (Auto) Baso % (Auto) Absolute Neuts (auto) Absolute Lymphs (auto) Total Counted Neutrophils % (Manual) Band Neutrophils % Lymphocytes % (Manual) Monocytes % (Manual) Metamyelocytes % Blast Cells % Nucleated RBC % Differential Comment Diff Path Review Platelet Estimate Hypochromasia Anisocytosis PT INR APTT Sodium Potassium Chloride Carbon Dioxide Anion Gap BUN Creatinine Estim Creat Clear Calc Est GFR (MDRD) Af Amer Est GFR (MDRD) Non-Af BUN/Creatinine Ratio Glucose Lactic Acid Calcium Iron TIBC Iron Saturation Ferritin Total Bilirubin Direct Bilirubin AST ALT Alkaline Phosphatase Lactate Dehydrogenase Total Protein Total Protein (PEP) Albumin Globulin Albumin/Globulin Ratio Lipase Vitamin B12 856 Folate TSH Acetone Level IgG IgA IgM Albumin (RA) Albumin/Globulin (RA) Bvcij-5-Oqniyhfmv RA Fosls-3-Qcjpbotfa RA Beta-Globulins (RA) Gamma Globulins (RA) RA M-Hermelindo Free [place] LC, Quant Free Lambda LC, Quant Free [place]/Lambda Ratio POC Glucose 272 H 228 H 08/08/19 08/08/19 08/08/19 17:26 17:26 22:57 WBC RBC Hgb Hct MCV MCH MCHC RDW Std Deviation RDW Coeff of Divya Plt Count MPV Immature Gran % (Auto) Neut % (Auto) Lymph % (Auto) [place] % (Auto) Eos % (Auto) Baso % (Auto) Absolute Neuts (auto) Absolute Lymphs (auto) Total Counted Neutrophils % (Manual) Band Neutrophils % Lymphocytes % (Manual) Monocytes % (Manual) Metamyelocytes % Blast Cells % Nucleated RBC % Differential Comment Diff Path Review Platelet Estimate Hypochromasia Anisocytosis PT 14.7 INR 1.2 APTT 34.3 Sodium Potassium Chloride Carbon Dioxide Anion Gap BUN Creatinine Estim Creat Clear Calc Est GFR (MDRD) Af Amer Est GFR (MDRD) Non-Af BUN/Creatinine Ratio Glucose Lactic Acid Calcium Iron TIBC Iron Saturation Ferritin Total Bilirubin Direct Bilirubin AST ALT Alkaline Phosphatase Lactate Dehydrogenase Total Protein Total Protein (PEP) Pending Albumin Globulin Albumin/Globulin Ratio Lipase Vitamin B12 Folate TSH Acetone Level IgG Pending IgA Pending IgM Pending Albumin (RA) Pending Albumin/Globulin (RA) Pending Saofl-6-Gdhterbxm RA Pending Unzqy-5-Sgnyyqfdc RA Pending Beta-Globulins (RA) Pending Gamma Globulins (RA) Pending RA M-Hermelindo Pending Free [place] LC, Quant Pending Free Lambda LC, Quant Pending Free [place]/Lambda Ratio Pending POC Glucose 233 H 08/09/19 08/09/19 08/09/19 05:20 05:20 06:35 WBC 2.9 L RBC 3.50 L Hgb 9.9 L Hct 30.3 L MCV 86.6 MCH 28.3 MCHC 32.7 RDW Std Deviation 44.7 H RDW Coeff of Divya 14.1 Plt Count 47 L* MPV 10.2 Immature Gran % (Auto) 0.300 Neut % (Auto) 84.9 H Lymph % (Auto) 3.4 L [place] % (Auto) 4.1 Eos % (Auto) 6.6 H Baso % (Auto) 0.7 Absolute Neuts (auto) 2.5 Absolute Lymphs (auto) 0.10 L Total Counted Neutrophils % (Manual) Band Neutrophils % Lymphocytes % (Manual) Monocytes % (Manual) Metamyelocytes % Blast Cells % Nucleated RBC % 0 Differential Comment SCANNED Diff Path Review Platelet Estimate MKD DEC Hypochromasia Anisocytosis PT INR APTT Sodium 135 L Potassium 3.9 Chloride 105 Carbon Dioxide 22.0 Anion Gap 8 BUN 34 H Creatinine 1.32 H Estim Creat Clear Calc 41.58 Est GFR (MDRD) Af Amer 54 L Est GFR (MDRD) Non-Af 44 L BUN/Creatinine Ratio 25.8 H Glucose 189 H Lactic Acid Calcium 8.1 L Iron TIBC Iron Saturation Ferritin Total Bilirubin Direct Bilirubin AST ALT Alkaline Phosphatase Lactate Dehydrogenase Total Protein Total Protein (PEP) Albumin Globulin Albumin/Globulin Ratio Lipase Vitamin B12 Folate TSH Acetone Level IgG IgA IgM Albumin (RA) Albumin/Globulin (RA) Dyavz-1-Oogezoxzt RA Zsjpt-1-[place] RA Beta-Globulins (RA) Gamma Globulins (RA) RA M-Hermelindo Free [place] LC, Quant Free Lambda LC, Quant Free [place]/Lambda Ratio POC Glucose 173 H 08/09/19 07:10 WBC RBC Hgb Hct MCV MCH MCHC RDW Std Deviation RDW Coeff of Divya Plt Count MPV Immature Gran % (Auto) Neut % (Auto) Lymph % (Auto) [place] % (Auto) Eos % (Auto) Baso % (Auto) Absolute Neuts (auto) Absolute Lymphs (auto) Total Counted Neutrophils % (Manual) Band Neutrophils % Lymphocytes % (Manual) Monocytes % (Manual) Metamyelocytes % Blast Cells % Nucleated RBC % Differential Comment Diff Path Review Platelet Estimate Hypochromasia Anisocytosis PT INR APTT Sodium Potassium Chloride Carbon Dioxide Anion Gap BUN Creatinine Estim Creat Clear Calc Est GFR (MDRD) Af Amer Est GFR (MDRD) Non-Af BUN/Creatinine Ratio Glucose Lactic Acid 1.2 Calcium Iron TIBC Iron Saturation Ferritin Total Bilirubin Direct Bilirubin AST ALT Alkaline Phosphatase Lactate Dehydrogenase Total Protein Total Protein (PEP) Albumin Globulin Albumin/Globulin Ratio Lipase Vitamin B12 Folate TSH Acetone Level IgG IgA IgM Albumin (RA) Albumin/Globulin (RA) Sxtui-5-[place] RA Slshu-6-Tofpxswuz RA Beta-Globulins (RA) Gamma Globulins (RA) RA M-Hermelindo Free [place] LC, Quant Free Lambda LC, Quant Free [place]/Lambda Ratio POC Glucose Clinical Impression(s) from Imaging Studies Renal Ultrasound 08/08/19 08:30 IMPRESSION: The right kidney is smaller than the left, in this otherwise normal bilateral renal ultrasound. Electronically Signed: Yovani Barahona, at 12:01 EST Tel , Service support , Current Medications Acetaminophen (Tylenol) 650 mg PO Q6H PRN PRN PRN Reason: Pain Score 1-10/Temp > 100.7 F Last Admin: 08/09/19 02:49 Dose: 650 mg Documented by: Al Hydroxide/Mg Hydroxide (Mylanta Ii) 30 ml PO Q6H PRN PRN PRN Reason: Gastric Burning Glucagon () 1 mg IM .X1 PRN PRN Reason: Hypoglycemia Potassium Chloride/Sodium Chloride () 1,000 mls @ 150 mls/hr IV .[id number] AKUA Stop: 08/09/19 18:19 Last Admin: 08/09/19 06:19 Dose: 150 mls/hr Documented by: Dextrose (Dextrose 10%-Water) 250 mls @ 999 mls/hr IV .Q16M PRN; Protocol PRN Reason: HYPOGLYCEMIA Sodium Chloride () 250 mls @ 15 mls/hr IV .[id number] PRN PRN Reason: Saline Flush Last Infusion: 08/09/19 07:28 Dose: 0 mls/hr Documented by: Sodium Chloride () 250 mls @ 15 mls/hr IV .[id number] PRN PRN Reason: Additional IVPB Infusion Pantoprazole Sodium 40 mg/ (Sodium Chloride) 110 mls @ 330 mls/hr IV Q12 [facility] Last Infusion: 08/08/19 23:22 Dose: Infused Documented by: Piperacillin Sod/Tazobactam (Sod 3.375 gm/ Sodium Chloride) 50 mls @ 12.5 mls/hr IV Q8 [facility] Last Admin: 08/09/19 07:26 Dose: 12.5 mls/hr Documented by: Vancomycin IV Pharmacy to Dose (1 ea/ Sodium Chloride) 500 mls @ 250 mls/hr IV X1 PRN; Protocol PRN Reason: Rx to Dose Vancomycin HCl 2,000 mg/ (Sodium Chloride) 540 mls @ 250 mls/hr IV X1 ONE Stop: 08/09/19 11:09 Influenza Virus Vaccine Quadrival (Flucelvax /Fluzone ) 0.5 ml IM .ONCE ONE Stop: 08/09/19 10:01 Insulin Glargine (Lantus (Bkc)) 10 units SC BREAKFAST [facility] Last Admin: 08/08/19 11:24 Dose: 10 u Documented by: Insulin Human Lispro (Humalog Kwikpen (Bkc)) 0 unit SC ACHS [facility]; Protocol Last Admin: 08/09/19 06:38 Dose: 2 u Documented by: Magnesium Hydroxide (Milk Of Magnesia) 30 ml PO DAILY PRN PRN PRN Reason: Constipation Melatonin (Melatonin) 3 mg PO QHS PRN PRN PRN Reason: INSOMNIA Ondansetron HCl (Zofran) 4 mg IV Q8H PRN PRN PRN Reason: NAUSEA/VOMITING Last Admin: 08/09/19 02:47 Dose: 4 mg Documented by: Prochlorperazine Edisylate (Compazine Iv) 5 mg IV Q4H PRN PRN PRN Reason: Breakthrough nausea/vomiting Last Admin: 08/08/19 15:58 Dose: 5 mg Documented by: Sodium Chloride () 10 - 40 ml IV UD PRN PRN Reason: SALINE FLUSH Last Admin: 08/09/19 02:47 Dose: 10 ml Documented by: Assessment/Plan Active and Suspected Problems Pancytopenia (Acute) Acute kidney injury (Acute) RECOMMENDATIONS: 1. Agree with broad-spectrum antimicrobials, pending infectious work-up. 2. Obtain blood and urine cultures. Check respiratory viral panel. 3. Cautious use of fluids, as the patient is already been volume resuscitated over the last [address] central venous catheter and initiate Levophed to maintain a mean arterial pressure at or above 65 mmHg. 5. Due to persistent high-grade fevers of unclear origin, will obtain CT chest along with abdomen/pelvis. IMPRESSIONS: 1. Gram-negative septic shock Technically, the patient met severe sepsis criteria with elevated temperature, leukopenia and tachypnea. In addition, she does have documented mean arterial pressures less than 65 mmHg. She has now clinically deteriorated into septic shock, which will require vasopressor support. The exact etiology for the patient's infection is a bit unclear. Blood and urine cultures are pending. A central venous catheter will be placed to facilitate Levophed administration. Given the patient's high-grade fevers with unclear source of infection, will obtain CT chest/abdomen/pelvis. Given that the patient has already been on supplemental IV fluids since yesterday and is currently over 6 L positive for the hospital admission, I would recommend not giving the conventional 30 cc/kg fluid bolus. 2. Acute kidney injury Likely prerenal in etiology, as the patient's creatinine is improving with volume resuscitation. Continue to monitor urine output. There is no current indication for renal replacement therapy. 3. Pancytopenia Defer management and work-up to hematology. 4. Diabetes mellitus/SOTELO/obesity Complicates care, management, recovery and prognosis. TIME: 42 minutes of critical care time, independent of procedures, was spent addressing the patient's gram-negative septic shock, acute kidney injury, pancytopenia, review of all data and collaboration with the care team. ([id number]) Code Visit 9xxxx: [id number] Critical care first hour
[2019-08-09 08:46] LABS: Mucous, Urine 0 SEEN /hpf (<or=2+); Red Blood Cells-Urine 0 SEEN /hpf (0-5); Squamous Epithelial Cells - UA 0 SEEN /hpf (5-10)
[2019-08-09] MEDS: Lactated Ringers 500 ML 999 ML IV (09:04)
[2019-08-09 09:05] LABS: Color, Urine Yellow (Yellow); Glucose, Dipstick 50 mg/dl (Normal); Leukocyte Esterase-Dipstick 25 /ul (Negative); Nitrite-Dipstick Negative (Negative); Occult Blood-Urine 250 /ul (Negative); Protein-Dipstick 100 mg/dl (Negative); Specific Gravity, Urine 1.015 (1.002-1.030); Urine Clarity Clear (Clear); Urine Urobilinogen 8 mg/dl (Normal)
[2019-08-09 09:06] LABS: Urine Bilirubin Dipstick 1 mg/dL (Negative)
[2019-08-09 09:11] LABS: Ketone-Dipstick 150 mg/dl (Negative)
[2019-08-09 09:12] LABS: Bacteria 1+ /hpf (None Seen); White Blood Cells 0-5 SEEN /hpf (0-5)
[2019-08-09 09:13] LABS: Amorphous Sediment 2+
[2019-08-09 09:55] LABS: Bedside Glucose 174 mg/dL (70-110)
--- NOTE | 2019-08-09 10:46 | PCM.RX.CS ---
Consult Pharmacy has been consulted to manage selected antiobiotic: Vancomycin Type of Consult: New start Suspected Infection: Sepsis Labs: Sodium 135 mmol/L (136-145) L 08/09/19 05:20 Potassium 3.9 mmol/L (3.5-5.1) 08/09/19 05:20 Chloride 105 mmol/L (98-107) 08/09/19 05:20 Carbon Dioxide 22.0 mmol/L (21.0-32.0) 08/09/19 05:20 Anion Gap 8 (5-15) 08/09/19 05:20 BUN 34 mg/dL (7-18) H 08/09/19 05:20 Creatinine 1.32 mg/dL (0.55-1.02) H 08/09/19 05:20 Est GFR (MDRD) Af Amer 54 mL/min (>60) L 08/09/19 05:20 Est GFR (MDRD) Non-Af 44 mL/min (>60) L 08/09/19 05:20 BUN/Creatinine Ratio 25.8 RATIO (10-20) H 08/09/19 05:20 Glucose 189 mg/dL (74-106) H 08/09/19 05:20 Weight used for dosin kg Estimated Creatinine Clearance: 53ml/min Goal Trough: 15-20 mcg/mL Pharmacy Plan for Drug Dosing: Pt to receive a 25mg/kg loading dose of Vancomycin 2000mg IV x1 on 08/09/19 at ~0900. Based on pt's weight and CrCl recommend an initial dose of Vancomycin 1000mg IV q12h to start 08/09/19 at 2100. Trough to be drawn before the 4th total dose on 08/10/19 at 2030. CrCl was based on adjusted body weight of 69.74kg. Pharmacy Service will continue to monitor and adjust dosing as required. Follow-Up Labs: Trough Vancomycin - 08/10/19 at 2030
--- NOTE | 2019-08-09 11:08 | RAD_ITS ---
EXAM DESCRIPTION: PORTABLE AP CHEST CLINICAL HISTORY: 53 years Female, Central line placement Central line placement COMPARISON: Previous AP portable chest obtained on 08/09/2019 at 7:25 AM FINDINGS: A right IJ CVP line catheter secured in place with its tip in superior vena cava. The rest of the thorax is intact. The heart and mediastinum appear to be within normal limits. The lungs appear to be well areated without evidence of pneumonic consolidation or pleural effusion. RAD/CXR for Line Placement IMPRESSION: Normal portable chest. Electronically Signed: Yovani Barahona, at 11:28 EST Tel , Service support ,
--- NOTE | 2019-08-09 11:38 | PCM.OPRPT ---
Report of Operation Date of Procedure: 08/09/19 Surgery/Procedure Performed:: Triple-lumen catheter insertion Description of Surgical Findings:: Central line placement procedure note Indication: IV access/hemodynamic instability/vasoactive medications Procedure: A time-out was completed to verify correct patient, indication, medication allergies, procedure, coagulation studies, informed consent signed, and equipment needed. The patient was placed in the supine position for a central line placement to the rt IJ vein. The patients rt neck was prepped using chlorhexidine and a full body sterile drape was applied. 1% lidocaine was used to anesthetize the surrounding skin. A 7fr 16 cm blue guard triple lumen catheter introduced into the internal jugular vein using the modified Seldinger technique with the assistance of ultrasound. The catheter was threaded smoothly over the guidewire, the guidewire was removed easily, nonpulsatile blood returned. All ports were aspirated of air and flushed with sterile saline. The catheter was sutured in place and covered with an occlusive dressing impregnated with chlorhexidine. Post-procedure: The patient tolerated the procedure well. Vital signs remained stable. EBL 5 cc. No complications. Chest X Ray ordered to confirm tip placement and the absence of pneumothorax. Code Visit Procedures: 13478 Insert Non-tunnel CV Cath
--- NOTE | 2019-08-09 12:12 | SEPSIS_ITS ---
Sepsis Note - Physical Exam/Vitals Subjective: I have reassessed the patient's hemodynamic status following IV fluid res uscitation. Objective: Chest X-Ray 08/09/19 06:49 IMPRESSION: Normal portable chest. Electronically Signed: Yovani Barahona, at 10:29 EST Tel , Service support , Chest X-Ray 08/09/19 11:08 IMPRESSION: Normal portable chest. Electronically Signed: Yovani Barahona, at 11:28 EST Tel , Service support , Temp Pulse Resp BP Pulse Ox 99.4 F H 87 21 H 110/55 L 96 08/09/19 12:00 08/09/19 12:00 08/09/19 12:00 08/09/19 12:00 08/09/19 12:00 08/09/19 08/09/19 08/09/19 09:43 08:30 08:30 WBC RBC Hgb Hct MCV MCH MCHC RDW Std Deviation RDW Coeff of Divya Plt Count MPV Immature Gran % (Auto) Neut % (Auto) Lymph % (Auto) [place] % (Auto) Eos % (Auto) Baso % (Auto) Absolute Neuts (auto) Absolute Lymphs (auto) Nucleated RBC % Differential Comment Platelet Estimate PT INR APTT Sodium Potassium Chloride Carbon Dioxide Anion Gap BUN Creatinine Estim Creat Clear Calc Est GFR (MDRD) Af Amer Est GFR (MDRD) Non-Af BUN/Creatinine Ratio Glucose Lactic Acid Calcium Iron TIBC Iron Saturation Ferritin Lactate Dehydrogenase Total Protein (PEP) Vitamin B12 Folate TSH Urine Color Yellow Urine Clarity Clear Urine pH 6.0 Ur Specific [place] 1.015 Urine Protein 100 H Urine Glucose (UA) 50 H Urine Ketones 150 H Urine Occult Blood 250 H Urine Nitrite Negative Urine Bilirubin 1 H Urine Urobilinogen 8 H Ur Leukocyte Esterase 25 H Urine RBC 0 SEEN Urine WBC 0-5 SEEN Ur Squamous Epith Cells 0 SEEN Amorphous Sediment 2+ Urine Bacteria 1+ Urine Mucus 0 SEEN IgG IgA IgM Albumin (RA) Albumin/Globulin (RA) Kjgpm-1-Nipasifqs RA Eofsc-0-Pkowdosrn RA Beta-Globulins (RA) Gamma Globulins (RA) RA M-Hermelindo Free [place] LC, Quant Free Lambda LC, Quant [place]/Lambda Ratio MRSA (PCR) Pending POC Glucose 174 H 08/09/19 08/09/19 08/09/19 07:10 06:35 05:20 WBC RBC Hgb Hct MCV MCH MCHC RDW Std Deviation RDW Coeff of Divya Plt Count MPV Immature Gran % (Auto) Neut % (Auto) Lymph % (Auto) [place] % (Auto) Eos % (Auto) Baso % (Auto) Absolute Neuts (auto) Absolute Lymphs (auto) Nucleated RBC % Differential Comment Platelet Estimate PT INR APTT Sodium 135 L Potassium 3.9 Chloride 105 Carbon Dioxide 22.0 Anion Gap 8 BUN 34 H Creatinine 1.32 H Estim Creat Clear Calc 41.58 Est GFR (MDRD) Af Amer 54 L Est GFR (MDRD) Non-Af 44 L BUN/Creatinine Ratio 25.8 H Glucose 189 H Lactic Acid 1.2 Calcium 8.1 L Iron TIBC Iron Saturation Ferritin Lactate Dehydrogenase Total Protein (PEP) Vitamin B12 Folate TSH Urine Color Urine Clarity Urine pH Ur Specific [place] Urine Protein Urine Glucose (UA) Urine Ketones Urine Occult Blood Urine Nitrite Urine Bilirubin Urine Urobilinogen Ur Leukocyte Esterase Urine RBC Urine WBC Ur Squamous Epith Cells Amorphous Sediment Urine Bacteria Urine Mucus IgG IgA IgM Albumin (RA) Albumin/Globulin (RA) Tmroj-5-Rvgwrmbju RA Yghhp-2-Ufxcgbzuc RA Beta-Globulins (RA) Gamma Globulins (RA) RA M-Hermelindo Free [place] LC, Quant Free Lambda LC, Quant [place]/Lambda Ratio MRSA (PCR) POC Glucose 173 H 08/09/19 08/08/19 08/08/19 05:20 22:57 17:26 WBC 2.9 L RBC 3.50 L Hgb 9.9 L Hct 30.3 L MCV 86.6 MCH 28.3 MCHC 32.7 RDW Std Deviation 44.7 H RDW Coeff of Divya 14.1 Plt Count 47 L* MPV 10.2 Immature Gran % (Auto) 0.300 Neut % (Auto) 84.9 H Lymph % (Auto) 3.4 L [place] % (Auto) 4.1 Eos % (Auto) 6.6 H Baso % (Auto) 0.7 Absolute Neuts (auto) 2.5 Absolute Lymphs (auto) 0.10 L Nucleated RBC % 0 Differential Comment SCANNED Platelet Estimate MKD DEC PT INR APTT Sodium Potassium Chloride Carbon Dioxide Anion Gap BUN Creatinine Estim Creat Clear Calc Est GFR (MDRD) Af Amer Est GFR (MDRD) Non-Af BUN/Creatinine Ratio Glucose Lactic Acid Calcium Iron TIBC Iron Saturation Ferritin Lactate Dehydrogenase Total Protein (PEP) Pending Vitamin B12 Folate TSH Urine Color Urine Clarity Urine pH Ur Specific [place] Urine Protein Urine Glucose (UA) Urine Ketones Urine Occult Blood Urine Nitrite Urine Bilirubin Urine Urobilinogen Ur Leukocyte Esterase Urine RBC Urine WBC Ur Squamous Epith Cells Amorphous Sediment Urine Bacteria Urine Mucus IgG Pending IgA Pending IgM Pending Albumin (RA) Pending Albumin/Globulin (RA) Pending Pzpop-5-Ywsyfkdtv RA Pending Ersoa-0-Eonytdhwo RA Pending Beta-Globulins (RA) Pending Gamma Globulins (RA) Pending RA M-Hermelindo Pending Free [place] LC, Quant Pending Free Lambda LC, Quant Pending Free [place]/Lambda Ratio Pending MRSA (PCR) POC Glucose 233 H 08/08/19 08/08/19 08/08/19 17:26 16:04 06:29 WBC RBC Hgb Hct MCV MCH MCHC RDW Std Deviation RDW Coeff of Divya Plt Count MPV Immature Gran % (Auto) Neut % (Auto) Lymph % (Auto) [place] % (Auto) Eos % (Auto) Baso % (Auto) Absolute Neuts (auto) Absolute Lymphs (auto) Nucleated RBC % Differential Comment Platelet Estimate PT 14.7 INR 1.2 APTT 34.3 Sodium Potassium Chloride Carbon Dioxide Anion Gap BUN Creatinine Estim Creat Clear Calc Est GFR (MDRD) Af Amer Est GFR (MDRD) Non-Af BUN/Creatinine Ratio Glucose Lactic Acid Calcium Iron TIBC Iron Saturation Ferritin Lactate Dehydrogenase Total Protein (PEP) Vitamin B12 856 Folate TSH Urine Color Urine Clarity Urine pH Ur Specific [place] Urine Protein Urine Glucose (UA) Urine Ketones Urine Occult Blood Urine Nitrite Urine Bilirubin Urine Urobilinogen Ur Leukocyte Esterase Urine RBC Urine WBC Ur Squamous Epith Cells Amorphous Sediment Urine Bacteria Urine Mucus IgG IgA IgM Albumin (RA) Albumin/Globulin (RA) Qcyec-3-Trsojqnel RA Qrgyi-6-Ewguaeoiv RA Beta-Globulins (RA) Gamma Globulins (RA) RA M-Hermelindo Free [place] LC, Quant Free Lambda LC, Quant [place]/Lambda Ratio MRSA (PCR) POC Glucose 228 H 08/08/19 06:29 WBC RBC Hgb Hct MCV MCH MCHC RDW Std Deviation RDW Coeff of Divya Plt Count MPV Immature Gran % (Auto) Neut % (Auto) Lymph % (Auto) [place] % (Auto) Eos % (Auto) Baso % (Auto) Absolute Neuts (auto) Absolute Lymphs (auto) Nucleated RBC % Differential Comment Platelet Estimate PT INR APTT Sodium Potassium Chloride Carbon Dioxide Anion Gap BUN Creatinine Estim Creat Clear Calc Est GFR (MDRD) Af Amer Est GFR (MDRD) Non-Af BUN/Creatinine Ratio Glucose Lactic Acid Calcium Iron 8 L TIBC 281 Iron Saturation 2.8 L Ferritin 214 Lactate Dehydrogenase 362 H Total Protein (PEP) Vitamin B12 Folate 17.70 TSH 2.27 Urine Color Urine Clarity Urine pH Ur Specific [place] Urine Protein Urine Glucose (UA) Urine Ketones Urine Occult Blood Urine Nitrite Urine Bilirubin Urine Urobilinogen Ur Leukocyte Esterase Urine RBC Urine WBC Ur Squamous Epith Cells Amorphous Sediment Urine Bacteria Urine Mucus IgG IgA IgM Albumin (RA) Albumin/Globulin (RA) Rrttm-1-Ajvpntzba RA Ldvhi-8-Fcaicunok RA Beta-Globulins (RA) Gamma Globulins (AR) RA M-Hermelindo Free [place] LC, Quant Free Lambda LC, Quant [place]/Lambda Ratio MRSA (PCR) POC Glucose General: Alert Lungs: Normal air movement Cardiovascular: Regular rate, Regular Rhythm Capillary Refill: <3 seconds Peripheral Pulses: Normal Skin Color: Owen - Assessment/Plan As per consultation note.
--- NOTE | 2019-08-09 13:22 | ECHOD_ITS ---
Reason For Study: DYSPNEA/SOB Procedure This was a 2D Doppler, Color Flow transthoracic echocardiogram. The study was technically difficult. Definity deferred due to increased PAP. Exam performed portable in ICU/CCU. Left Ventricle Normal LV size. The estimated ejection fraction is 70-75 %. No evidence for diastolic dysfunction. Left ventricular systolic function is hyperdynamic. No regional wall motion abnormalities noted. Right Ventricle Normal RV size. Normal systolic function. Atria Normal left atrium. Normal right atrium. No doppler evidence for ASD. Mitral Valve There is no mitral valve stenosis. No mitral valve insufficiency. Tricuspid Valve There is no tricuspid stenosis. No tricuspid valve insufficiency. Unable to estimate RV systolic pressure due to inadequate jet, pulmonary artery pressure probably normal. Aortic Valve The aortic valve is not well visualized. There is no aortic stenosis. No aortic valve insufficiency. Pulmonic Valve There is no pulmonic valvular stenosis. No pulmonic valve insufficiency. Great Vessels Normal aortic root. Pericardium/Pleural No pericardial effusion. MMode/2D Measurements & Calculations LVIDd: 4.6 cm IVSd: 0.72 cm Ao root diam: 3.1 cm LVIDs: 2.8 cm LVPWd: 0.78 cm RVDd: 3.4 cm FS: 38.5 % LAV(MOD-bp): 50.8 ml LVAd ap4: 25.0 cm2 SV(MOD-sp4): 51.5 ml LAV(MOD-bp) Indexed: 25.7 ml/m2 EDV(MOD-sp4): 66.8 ml LAV(MOD-sp2): 52.6 ml EDV(sp4-el): 70.4 ml LAV(MOD-sp4): 47.2 ml LVAs ap4: 10.6 cm2 ESV(MOD-sp4): 15.4 ml ESV(sp4-el): 15.0 ml EF(MOD-sp4): 77.0 % EF(sp4-el): 78.7 % SV(sp4-el): 55.4 ml LA A4 area: 17.8 cm2 LA dimension(2D): 3.6 cm RA A4 area: 12.9 cm2 Time Measurements MV dec time: 0.15 sec Doppler Measurements & Calculations MV E max markos: 114.5 cm/sec Lat Peak E' Markos: 15.9 cm/sec Med Peak E' Markos: 15.1 cm/sec MV A max markos: 137.6 cm/sec E/E' lat: 7.2 E/E' med: 7.6 MV E/A: 0.83 Ao V2 max: 228.2 cm/sec PA V2 max: 163.0 cm/sec TR max markos: 340.8 cm/sec Ao max P.8 mmHg TR max P.0 mmHg Interpretation Summary The estimated ejection fraction is 70-75 %. No evidence for diastolic dysfunction. Left ventricular systolic function is hyperdynamic. Ordering Physician: Kendrick Quintero Performed By: Kiya Crockett RDCS
--- NOTE | 2019-08-09 13:23 | VDLE_ITS ---
Reason For Study: Shortness of breath RIGHT LEFT GSV is normal. GSV is normal. CFV is compressible, spontaneous, phasic, CFV is compressible, spontaneous, phasic, competent and demonstrates normal competent, and demonstrates normal augmentation. augmentation. FV is compressible, spontaneous, phasic, FV is compressible, spontaneous, phasic, competent and demonstrates normal competent and demonstrates normal augmentation. augmentation. POP V is compressible, spontaneous, phasic, POP V is compressible, spontaneous, phasic, competent and demonstrates normal competent and demonstrates normal augmentation. augmentation. T/P Trunk is compressible. T/P Trunk is compressible. PTV is compressible. PTV is compressible. RT PerV is compressible. LT PerV is compressible. Procedure Exam performed portable in ICU/CCU. A preliminary report was called and/or faxed to NURSES EDUCATOR. Interpretation Summary No evidence for acute deep venous thrombosis bilateral lower extremities with patent and compressible bilateral great saphenous veins. Ordering Physician: Kenrdick Quintero Performed By: Grace Stewart RVT
[2019-08-09 15:22] LABS: M R Staph aureus DNA By PCR Negative (Negative); Probe Check PASS; Specimen Processing Control PASS
[2019-08-09 15:36] LABS: Bedside Glucose 237 mg/dL (70-110)
[2019-08-09 15:41] LABS: Allen Test POS; Base Excess -7 mmol/L (-2 to +2); Bicarbonate 17.9 mmol/L (22-26); Blood Gas Specimen Type ART; PO2 84 mmHG (75-100); SITE R Radial; SO2 97 % (95-99); Time Given 1530; Total Carbon Dioxide 19 mmol/L; pCO2 27.9 mmHg (35-45); pH 7.42 (7.35-7.45)
[2019-08-09] MEDS: Acetaminophen 650 MG Suppository RECTAL (15:46)
--- NOTE | 2019-08-09 17:19 | NURSING ---
Placed on cooling blanket d/t core temp 104.5
[2019-08-09 17:30] LABS: Bedside Glucose 229 mg/dL (70-110)
--- NOTE | 2019-08-09 17:44 | CT_ITS ---
STUDY: CT ABDOMEN AND PELVIS WITH CONTRAST REASON FOR EXAM: Female, 53 years old. FEVER OF UNKNOWN ORIGIN RADIATION DOSAGE (If Supplied By Facility): CTDIvol = ( 22.03 ) mGy, DLP = ( 2192.68 ) mGycm TECHNIQUE: Transaxial images were obtained from the dome of the diaphragm to the symphysis pubis without oral contrast. IV 75mL Isovue-300 was administered. Sagittal and coronal images were reconstructed. Individualized dose optimization techniques were used for this CT. COMPARISON: None. FINDINGS: The visualized lung bases are unremarkable. The visualized portions of the heart are within normal limits. There is a 1.6 cm soft tissue density within the right breast. There is a central venous catheter. The tip is in the superior vena cava near the right atrial junction. There is 1.6 cm pleural-based density within left lower lobe. Normal liver. There are likely gallstones. Normal spleen. Normal pancreas. Normal bilateral adrenal glands. The spleen is mildly enlarged measuring 13.3 cm AP diameter. There is Moderate left hydronephrosis and left hydroureter. There is a likely obstructing 6 mm calculus within the mid left ureter at the approximate L4 level. There is left perirenal and periureteral stranding. There are several 2 mm right renal calculi. There is no right renal hydronephrosis. There is a 9 mm left renal cyst. There is a 1.5 cm left ovarian adnexal cyst. There is a small amount of pelvic free fluid. Normal visualized stomach. There is mild distended loops of small bowel with mild enhancement. There is no transition point. Normal colon. The appendix is visualized and appears normal. Normal abdominal aorta. Normal inferior vena cava. Normal retroperitoneum. There is a Joshi catheter within the bladder. Normal abdominal wall. Normal osseous structures. CT/Abdomen/Pelvis W IV Cont ONLY IMPRESSION: Moderate left hydronephrosis and left hydroureter. There is a likely obstructing 6 mm calculus within the mid left ureter at the approximate L4 level. There is left perirenal and periureteral stranding Mild distended loops of small bowel with mild enhancement likely ileus, enteritis pattern most likely. Ischemia cannot be excluded. 1.6 cm soft tissue density within the right breast, most likely dense fibroglandular changes, mass cannot be excluded 1.6 cm left lower lobe pleural-based density most likely benign infectious/inflammatory changes cannot exclude mass Likely cholelithiasis Mild splenomegaly Right renal nephrolithiasis 1.5 cm left ovarian cyst Small amount of free pelvic fluid Joshi catheter within the bladder Electronically Signed: Rene Ye, at 18:56 EST Tel , Service support ,
--- NOTE | 2019-08-09 17:44 | CT_ITS ---
STUDY: CT CHEST WITH CONTRAST REASON FOR EXAM: Female, 53 years old. FEVER OF UNKNOWN ORIGIN RADIATION DOSAGE (If Supplied By Facility): CTDIvol = ( 22.03 ) mGy, DLP = ( 2192.68 ) mGycm TECHNIQUE: Transaxial imaging was performed following intravenous administration of IV 75mL Isovue-300. Individualized dose optimization techniques were used for this CT. COMPARISON: None. FINDINGS: There is extensive respiratory motion artifact. There is a right internal jugular catheter. The tip is in the superior vena cava near the right atrial junction. There is no pneumothorax. The lungs are normal. There is no demonstrated pleural abnormality. There is a 1.5 cm density within the right breast. Normal heart and pericardium. There is a6 mm left lower lobe pleural-based density. Normal mediastinum. Normal hilar regions. Normal enhanced pulmonary arteries. Normal aorta arch and descending thoracic aorta. Normal osseous structures. There is no demonstrated abnormality of the visualized upper abdomen. There is mild splenomegaly, the spleen; is incompletely included on the field of view. There is focal calcification within the right lobe liver or on the capsule. CT/Chest WITH Contrast IMPRESSION: Extensive respiratory motion artifact right internal jugular catheter. The tip is in the superior vena cava near the right atrial junction. There is no pneumothorax. 6 mm left lower lobe pleural-based pulmonary opacity likely infectious/inflammatory, 6 month follow-up for stability recommended Mild splenomegaly, the spleen is incompletely included on the [id number] 1.5 cm soft tissue density within the right breast which may be due to focal dense fibroglandular tissue cannot exclude mass. Follow-up mammography is recommended Electronically Signed: Rene Ye, at 18:33 EST Tel , Service support ,
[2019-08-09 21:25] LABS: Bedside Glucose 181 mg/dL (70-110)
[2019-08-10] VITALS (37 sets, daily range): BP systolic 95–134; BP diastolic 50–73; PULSE 73–94; RESP 16–30; TEMP 36.4–38.4; O2SAT 90–100; BMI 35.4
[2019-08-10] MEDS: Acetaminophen 325 MG Tablet 650 MG PO ×2 (00:12→13:20)
[2019-08-10 03:51] LABS: Hematocrit 29.3 % (37-47); Hemoglobin 9.8 g/dL (12.0-15.0); Mean Corp Hgb Conc 33.4 g/dL (32-36); Mean Corpuscular Hgb 28.8 pg (27.0-32.0); Mean Corpuscular Volume 86.2 fL (81-99); Mean Platelet Vol. 12.9 fl (6.2-12.0); POSITIVE COUNT YES; POSITIVE DIFFERENTIAL YES; POSITIVE MORPHOLOGY YES; RBC Distribution Width CV 14.8 % (11.6-14.6); RBC Distribution Width SD 47.3 fl (35.1-43.9); White Blood Count 5.4 K/mm3 (4.4-11.0)
[2019-08-10 03:56] LABS: Differential Indicated MANUAL DIFF; Platelet Count 29 K/mm3 (150-450)
[2019-08-10 04:03] LABS: Anion Gap 5 (5-15); BUN 28 mg/dL (7-18); BUN/Creat Ratio 20.3 RATIO (10-20); Calcium,Total 7.9 mg/dL (8.5-10.1); Chloride 105 mmol/L (98-107); Creatinine, Serum 1.38 mg/dL (0.55-1.02); EST Glomerular Filtration Rate 42 mL/min (>60); Est Glom Filt Rate - Afr Amer 51 mL/min (>60); Estimated Creatinine Clearance 39.78 ml/min; Glucose 160 mg/dL (74-106); Potassium 3.6 mmol/L (3.5-5.1); Sodium Level 135 mmol/L (136-145)
[2019-08-10 04:26] LABS: Lymphocyte 7 % (19-41); Metamyelocyte 3 % (0-1); Monocyte 11 % (0-10); Neutrophil-Band 8 % (0-5); Neutrophil-Segmented 71 % (47-70); Total Cells Counted 100 (MANUAL DIFF)
[2019-08-10 04:27] LABS: Absolute Neutrophil Count 4.3 X10^3/uL (2.0-7.7)
[2019-08-10 04:28] LABS: Absolute Lymphocyte Count 0.38 X10^3/uL (0.83-4.51); Lymphocyte # 0.38 X10^3/ul (4.0); Monocyte# 0.59 X10^3/uL; Neutrophil # 4.26 X10^3/uL (2.7-7.7); Platelet Estimate MKD DEC (ADEQ); Red Cell Morphology NORM C+C NORMAL (NORM C&C)
--- NOTE | 2019-08-10 06:43 | PCM.PN.INT ---
Subjective: The patient was seen and examined at the bedside this morning. Events from the last 24 hours have been reviewed. The patient is currently febrile and a bit tachypneic. She is maintaining appropriate oxygen saturations on 2 L/min. The patient did decompensate clinically yesterday afternoon with high-grade fevers and hypotension, requiring the initiation of vasopressor support. Blood cultures were subsequently found to be positive for gram-negative rods. CT abdomen/pelvis did reveal moderate left-sided hydronephrosis and left hydroureter with an obstructing stone within the left mid ureter. The patient was maintained on broad-spectrum antimicrobials. She was able to be weaned off of vasopressor support as of 214 this morning. Consultation has been placed to urology. Objective: The patient's most recent lab work, culture data and imaging studies have all been personally reviewed. General: Alert, Cooperative, No apparent distress, - - Ill in appearance HEENT: Atraumatic, PERRLA, Normocephalic Oral: No Gingival or Mucosal Lesions/ Ulcerations Neck: Supple, No Nodes, Trachea Midline Lungs: No rhonchi, No wheeze, No rales, Diminished, Tachypneic Cardiovascular: Regular rate, Regular Rhythm, Normal S1, Normal S2, No murmurs Abdomen: Bowel Sounds Present, Soft, Non-Distended, Obese Extremities: No clubbing, No cyanosis Skin: No breakdown Musculoskeletal: No Tenderness to Palpation of Joints or Extremities Lymphatic: No Cervical, Supraclavicular, or Inguinal Adenopathy Neurological: Cranial nerves II-XII grossly intact, Neuro grossly intact Psych/Mental Status: Flat Affect Vital Signs Temp Pulse Resp BP Pulse Ox 99.3 F H 84 29 H 120/61 100 08/10/19 06:00 08/10/19 06:00 08/10/19 06:00 08/10/19 06:00 08/10/19 06:00 Oxygen Flow Rate (L/min) 2 Oxygen Delivery Method Nasal Cannula Weight: 203 lb 7.787 oz Body Mass Index (BMI) 34.9 Finger Stick Blood Glucose 218 Intake and Output for Last 24 Hours 08/08/19 08/09/19 08/10/19 23:59 23:59 23:59 Intake Total 3647.5 / 4167.5 5017.40 / 5226.80 604.50 / 604.50 Output Total 1300 / 1900 900 / 900 Balance 3647.5 / 4017.5 3717.40 / 3326.80 -295.50 / -295.50 Labs (Last 48 Hours) 08/08/19 08/08/19 08/08/19 06:29 06:29 06:29 WBC 3.0 L RBC 4.14 L Hgb 11.8 L Hct 35.9 L MCV 86.7 MCH 28.5 MCHC 32.9 RDW Std Deviation 43.1 RDW Coeff of Divya 13.6 Plt Count 53 L MPV 11.8 Immature Gran % (Auto) Neut % (Auto) Not Reportable Lymph % (Auto) [place] % (Auto) Eos % (Auto) Baso % (Auto) Absolute Neuts (auto) 2.4 Absolute Lymphs (auto) 0.24 L Total Counted 100 Neutrophils % (Manual) 78 H Band Neutrophils % 4 Lymphocytes % (Manual) 8 L Monocytes % (Manual) 6 Metamyelocytes % 3 H Blast Cells % 1 H* Nucleated RBC % Differential Comment Diff Path Review Reviewed Platelet Estimate MOD DEC RBC Morphology Hypochromasia RARE Anisocytosis RARE PT INR APTT Specimen Type Sample Site pH Bicarbonate Actual POC Total CO2 Base Excess O2 Saturation ABG pCO2 ABG pO2 Yobany Test Blood Gas Notified Whom Blood Gas Notified Time Sodium 132 L Potassium 3.3 L Chloride 97 L Carbon Dioxide 27.0 Anion Gap 8 BUN 48 H Creatinine 2.09 H Estim Creat Clear Calc 26.26 Est GFR (MDRD) Af Amer 32 L Est GFR (MDRD) Non-Af 26 L BUN/Creatinine Ratio 23.0 H Glucose 245 H Lactic Acid Calcium 9.0 Iron TIBC Iron Saturation Ferritin Total Bilirubin 0.80 Direct Bilirubin AST 54 H ALT 45 Alkaline Phosphatase 169 H Lactate Dehydrogenase Troponin I Total Protein 7.2 Total Protein (PEP) Albumin 3.3 Globulin 3.9 Albumin/Globulin Ratio 0.8 L Lipase 46 L Vitamin B12 Folate TSH Urine Color Urine Clarity Urine pH Ur Specific [place] Urine Protein Urine Glucose (UA) Urine Ketones Urine Occult Blood Urine Nitrite Urine Bilirubin Urine Urobilinogen Ur Leukocyte Esterase Urine RBC Urine WBC Ur Squamous Epith Cells Amorphous Sediment Urine Bacteria Urine Mucus Acetone Level NEGATIVE IgG IgA IgM Albumin (RA) Albumin/Globulin (RA) Lyjxx-1-Obpvfdcww RA Wkyap-3-Heqkemeda RA Beta-Globulins (RA) Gamma Globulins (RA) RA M-Hermelindo Free Rachel LC, Quant Free Lambda LC, Quant Free Rachel/Lambda Ratio MRSA (PCR) POC Glucose 08/08/19 08/08/19 08/08/19 06:29 06:29 06:29 WBC RBC Hgb Hct MCV MCH MCHC RDW Std Deviation RDW Coeff of Divya Plt Count MPV Immature Gran % (Auto) Neut % (Auto) Lymph % (Auto) [place] % (Auto) Eos % (Auto) Baso % (Auto) Absolute Neuts (auto) Absolute Lymphs (auto) Total Counted Neutrophils % (Manual) Band Neutrophils % Lymphocytes % (Manual) Monocytes % (Manual) Metamyelocytes % Blast Cells % Nucleated RBC % Differential Comment Diff Path Review Platelet Estimate RBC Morphology Hypochromasia Anisocytosis PT INR APTT Specimen Type Sample Site pH Bicarbonate Actual POC Total CO2 Base Excess O2 Saturation ABG pCO2 ABG pO2 Yobany Test Blood Gas Notified Whom Blood Gas Notified Time Sodium Potassium Chloride Carbon Dioxide Anion Gap BUN Creatinine Estim Creat Clear Calc Est GFR (MDRD) Af Amer Est GFR (MDRD) Non-Af BUN/Creatinine Ratio Glucose Lactic Acid Calcium Iron 8 L TIBC 281 Iron Saturation 2.8 L Ferritin 214 Total Bilirubin 1.00 Direct Bilirubin 0.49 H AST 55 H ALT 45 Alkaline Phosphatase 148 H Lactate Dehydrogenase 362 H Troponin I Total Protein 6.5 Total Protein (PEP) Albumin 3.5 Globulin 3.0 Albumin/Globulin Ratio Lipase Vitamin B12 856 Folate 17.70 TSH 2.27 Urine Color Urine Clarity Urine pH Ur Specific [place] Urine Protein Urine Glucose (UA) Urine Ketones Urine Occult Blood Urine Nitrite Urine Bilirubin Urine Urobilinogen Ur Leukocyte Esterase Urine RBC Urine WBC Ur Squamous Epith Cells Amorphous Sediment Urine Bacteria Urine Mucus Acetone Level IgG IgA IgM Albumin (RA) Albumin/Globulin (RA) Vangb-1-Ojgqyelwn RA Jifhw-9-Nstzggcfk RA Beta-Globulins (RA) Gamma Globulins (RA) RA M-Hermelindo Free Rachel LC, Quant Free Lambda LC, Quant Free Rachel/Lambda Ratio MRSA (PCR) POC Glucose 08/08/19 08/08/19 08/08/19 11:22 16:04 17:26 WBC RBC Hgb Hct MCV MCH MCHC RDW Std Deviation RDW Coeff of Divya Plt Count MPV Immature Gran % (Auto) Neut % (Auto) Lymph % (Auto) [place] % (Auto) Eos % (Auto) Baso % (Auto) Absolute Neuts (auto) Absolute Lymphs (auto) Total Counted Neutrophils % (Manual) Band Neutrophils % Lymphocytes % (Manual) Monocytes % (Manual) Metamyelocytes % Blast Cells % Nucleated RBC % Differential Comment Diff Path Review Platelet Estimate RBC Morphology Hypochromasia Anisocytosis PT 14.7 INR 1.2 APTT 34.3 Specimen Type Sample Site pH Bicarbonate Actual POC Total CO2 Base Excess O2 Saturation ABG pCO2 ABG pO2 Yobany Test Blood Gas Notified Whom Blood Gas Notified Time Sodium Potassium Chloride Carbon Dioxide Anion Gap BUN Creatinine Estim Creat Clear Calc Est GFR (MDRD) Af Amer Est GFR (MDRD) Non-Af BUN/Creatinine Ratio Glucose Lactic Acid Calcium Iron TIBC Iron Saturation Ferritin Total Bilirubin Direct Bilirubin AST ALT Alkaline Phosphatase Lactate Dehydrogenase Troponin I Total Protein Total Protein (PEP) Albumin Globulin Albumin/Globulin Ratio Lipase Vitamin B12 Folate TSH Urine Color Urine Clarity Urine pH Ur Specific [place] Urine Protein Urine Glucose (UA) Urine Ketones Urine Occult Blood Urine Nitrite Urine Bilirubin Urine Urobilinogen Ur Leukocyte Esterase Urine RBC Urine WBC Ur Squamous Epith Cells Amorphous Sediment Urine Bacteria Urine Mucus Acetone Level IgG IgA IgM Albumin (RA) Albumin/Globulin (RA) Pbeld-3-Uoaiqtvxz RA Qcotq-3-Oysrhiegg RA Beta-Globulins (RA) Gamma Globulins (RA) RA M-Hermelindo Free Rachel LC, Quant Free Lambda LC, Quant Free Rachel/Lambda Ratio MRSA (PCR) POC Glucose 272 H 228 H 08/08/19 08/08/19 08/09/19 17:26 22:57 05:20 WBC 2.9 L RBC 3.50 L Hgb 9.9 L Hct 30.3 L MCV 86.6 MCH 28.3 MCHC 32.7 RDW Std Deviation 44.7 H RDW Coeff of Divya 14.1 Plt Count 47 L* MPV 10.2 Immature Gran % (Auto) 0.300 Neut % (Auto) 84.9 H Lymph % (Auto) 3.4 L [place] % (Auto) 4.1 Eos % (Auto) 6.6 H Baso % (Auto) 0.7 Absolute Neuts (auto) 2.5 Absolute Lymphs (auto) 0.10 L Total Counted Neutrophils % (Manual) Band Neutrophils % Lymphocytes % (Manual) Monocytes % (Manual) Metamyelocytes % Blast Cells % Nucleated RBC % 0 Differential Comment SCANNED Diff Path Review Platelet Estimate MKD DEC RBC Morphology Hypochromasia Anisocytosis PT INR APTT Specimen Type Sample Site pH Bicarbonate Actual POC Total CO2 Base Excess O2 Saturation ABG pCO2 ABG pO2 Yobany Test Blood Gas Notified Whom Blood Gas Notified Time Sodium Potassium Chloride Carbon Dioxide Anion Gap BUN Creatinine Estim Creat Clear Calc Est GFR (MDRD) Af Amer Est GFR (MDRD) Non-Af BUN/Creatinine Ratio Glucose Lactic Acid Calcium Iron TIBC Iron Saturation Ferritin Total Bilirubin Direct Bilirubin AST ALT Alkaline Phosphatase Lactate Dehydrogenase Troponin I Total Protein Total Protein (PEP) Pending Albumin Globulin Albumin/Globulin Ratio Lipase Vitamin B12 Folate TSH Urine Color Urine Clarity Urine pH Ur Specific [place] Urine Protein Urine Glucose (UA) Urine Ketones Urine Occult Blood Urine Nitrite Urine Bilirubin Urine Urobilinogen Ur Leukocyte Esterase Urine RBC Urine WBC Ur Squamous Epith Cells Amorphous Sediment Urine Bacteria Urine Mucus Acetone Level IgG Pending IgA Pending IgM Pending Albumin (RA) Pending Albumin/Globulin (RA) Pending Ahxzp-0-Auapawmys RA Pending Hcvoj-9-Uyxfhcexw RA Pending Beta-Globulins (RA) Pending Gamma Globulins (RA) Pending RA M-Hermelindo Pending Free Rachel LC, Quant Pending Free Lambda LC, Quant Pending Free Rachel/Lambda Ratio Pending MRSA (PCR) POC Glucose 233 H 08/09/19 08/09/19 08/09/19 05:20 06:35 07:10 WBC RBC Hgb Hct MCV MCH MCHC RDW Std Deviation RDW Coeff of Divya Plt Count MPV Immature Gran % (Auto) Neut % (Auto) Lymph % (Auto) [place] % (Auto) Eos % (Auto) Baso % (Auto) Absolute Neuts (auto) Absolute Lymphs (auto) Total Counted Neutrophils % (Manual) Band Neutrophils % Lymphocytes % (Manual) Monocytes % (Manual) Metamyelocytes % Blast Cells % Nucleated RBC % Differential Comment Diff Path Review Platelet Estimate RBC Morphology Hypochromasia Anisocytosis PT INR APTT Specimen Type Sample Site pH Bicarbonate Actual POC Total CO2 Base Excess O2 Saturation ABG pCO2 ABG pO2 Yobany Test Blood Gas Notified Whom Blood Gas Notified Time Sodium 135 L Potassium 3.9 Chloride 105 Carbon Dioxide 22.0 Anion Gap 8 BUN 34 H Creatinine 1.32 H Estim Creat Clear Calc 41.58 Est GFR (MDRD) Af Amer 54 L Est GFR (MDRD) Non-Af 44 L BUN/Creatinine Ratio 25.8 H Glucose 189 H Lactic Acid 1.2 Calcium 8.1 L Iron TIBC Iron Saturation Ferritin Total Bilirubin Direct Bilirubin AST ALT Alkaline Phosphatase Lactate Dehydrogenase Troponin I Total Protein Total Protein (PEP) Albumin Globulin Albumin/Globulin Ratio Lipase Vitamin B12 Folate TSH Urine Color Urine Clarity Urine pH Ur Specific [place] Urine Protein Urine Glucose (UA) Urine Ketones Urine Occult Blood Urine Nitrite Urine Bilirubin Urine Urobilinogen Ur Leukocyte Esterase Urine RBC Urine WBC Ur Squamous Epith Cells Amorphous Sediment Urine Bacteria Urine Mucus Acetone Level IgG IgA IgM Albumin (RA) Albumin/Globulin (RA) Zexlq-0-Vzzipqzae RA Ugrle-0-Fdkcxsois RA Beta-Globulins (RA) Gamma Globulins (RA) RA M-Hermelindo Free Rachel LC, Quant Free Lambda LC, Quant Free Rachel/Lambda Ratio MRSA (PCR) POC Glucose 173 H 08/09/19 08/09/19 08/09/19 08:30 08:30 09:43 WBC RBC Hgb Hct MCV MCH MCHC RDW Std Deviation RDW Coeff of Divya Plt Count MPV Immature Gran % (Auto) Neut % (Auto) Lymph % (Auto) [place] % (Auto) Eos % (Auto) Baso % (Auto) Absolute Neuts (auto) Absolute Lymphs (auto) Total Counted Neutrophils % (Manual) Band Neutrophils % Lymphocytes % (Manual) Monocytes % (Manual) Metamyelocytes % Blast Cells % Nucleated RBC % Differential Comment Diff Path Review Platelet Estimate RBC Morphology Hypochromasia Anisocytosis PT INR APTT Specimen Type Sample Site pH Bicarbonate Actual POC Total CO2 Base Excess O2 Saturation ABG pCO2 ABG pO2 Yobany Test Blood Gas Notified Whom Blood Gas Notified Time Sodium Potassium Chloride Carbon Dioxide Anion Gap BUN Creatinine Estim Creat Clear Calc Est GFR (MDRD) Af Amer Est GFR (MDRD) Non-Af BUN/Creatinine Ratio Glucose Lactic Acid Calcium Iron TIBC Iron Saturation Ferritin Total Bilirubin Direct Bilirubin AST ALT Alkaline Phosphatase Lactate Dehydrogenase Troponin I Total Protein Total Protein (PEP) Albumin Globulin Albumin/Globulin Ratio Lipase Vitamin B12 Folate TSH Urine Color Yellow Urine Clarity Clear Urine pH 6.0 Ur Specific [place] 1.015 Urine Protein 100 H Urine Glucose (UA) 50 H Urine Ketones 150 H Urine Occult Blood 250 H Urine Nitrite Negative Urine Bilirubin 1 H Urine Urobilinogen 8 H Ur Leukocyte Esterase 25 H Urine RBC 0 SEEN Urine WBC 0-5 SEEN Ur Squamous Epith Cells 0 SEEN Amorphous Sediment 2+ Urine Bacteria 1+ Urine Mucus 0 SEEN Acetone Level IgG IgA IgM Albumin (RA) Albumin/Globulin (RA) Kfyoo-9-Obmryzlgz RA Dbpwa-7-Gpgnzcsmp RA Beta-Globulins (RA) Gamma Globulins (RA) RA M-Hermelindo Free Rachel LC, Quant Free Lambda LC, Quant Free Rachel/Lambda Ratio MRSA (PCR) Negative POC Glucose 174 H 08/09/19 08/09/19 08/09/19 13:50 15:31 15:35 WBC RBC Hgb Hct MCV MCH MCHC RDW Std Deviation RDW Coeff of Divya Plt Count MPV Immature Gran % (Auto) Neut % (Auto) Lymph % (Auto) [place] % (Auto) Eos % (Auto) Baso % (Auto) Absolute Neuts (auto) Absolute Lymphs (auto) Total Counted Neutrophils % (Manual) Band Neutrophils % Lymphocytes % (Manual) Monocytes % (Manual) Metamyelocytes % Blast Cells % Nucleated RBC % Differential Comment Diff Path Review Platelet Estimate RBC Morphology Hypochromasia Anisocytosis PT INR APTT Specimen Type ART Sample Site R Radial pH 7.42 Bicarbonate Actual 17.9 L POC Total CO2 19 Base Excess -7 L O2 Saturation 97 ABG pCO2 27.9 L ABG pO2 84 Yobany Test POS Blood Gas Notified Whom ICU MD Blood Gas Notified Time 1530 Sodium Potassium Chloride Carbon Dioxide Anion Gap BUN Creatinine Estim Creat Clear Calc Est GFR (MDRD) Af Amer Est GFR (MDRD) Non-Af BUN/Creatinine Ratio Glucose Lactic Acid Calcium Iron TIBC Iron Saturation Ferritin Total Bilirubin Direct Bilirubin AST ALT Alkaline Phosphatase Lactate Dehydrogenase Troponin I < 0.015 Total Protein Total Protein (PEP) Albumin Globulin Albumin/Globulin Ratio Lipase Vitamin B12 Folate TSH Urine Color Urine Clarity Urine pH Ur Specific [place] Urine Protein Urine Glucose (UA) Urine Ketones Urine Occult Blood Urine Nitrite Urine Bilirubin Urine Urobilinogen Ur Leukocyte Esterase Urine RBC Urine WBC Ur Squamous Epith Cells Amorphous Sediment Urine Bacteria Urine Mucus Acetone Level IgG IgA IgM Albumin (RA) Albumin/Globulin (RA) Wugjv-4-Zmfzpprbe RA Iqott-2-Xqlahlgxx RA Beta-Globulins (RA) Gamma Globulins (RA) RA M-Hermelindo Free Rachel LC, Quant Free Lambda LC, Quant Free Rachel/Lambda Ratio MRSA (PCR) POC Glucose 237 H 08/09/19 08/09/19 08/10/19 17:19 21:18 03:47 WBC 5.4 RBC 3.40 L Hgb 9.8 L Hct 29.3 L MCV 86.2 MCH 28.8 MCHC 33.4 RDW Std Deviation 47.3 H RDW Coeff of Divya 14.8 H Plt Count 29 L* MPV 12.9 H Immature Gran % (Auto) Neut % (Auto) Not Reportable Lymph % (Auto) [place] % (Auto) Eos % (Auto) Baso % (Auto) Absolute Neuts (auto) 4.3 Absolute Lymphs (auto) 0.38 L Total Counted 100 Neutrophils % (Manual) 71 H Band Neutrophils % 8 H Lymphocytes % (Manual) 7 L Monocytes % (Manual) 11 H Metamyelocytes % 3 H Blast Cells % Nucleated RBC % Differential Comment Diff Path Review May foll Platelet Estimate MKD DEC RBC Morphology NORM C+C Hypochromasia Anisocytosis PT INR APTT Specimen Type Sample Site pH Bicarbonate Actual POC Total CO2 Base Excess O2 Saturation ABG pCO2 ABG pO2 Yobany Test Blood Gas Notified Whom Blood Gas Notified Time Sodium Potassium Chloride Carbon Dioxide Anion Gap BUN Creatinine Estim Creat Clear Calc Est GFR (MDRD) Af Amer Est GFR (MDRD) Non-Af BUN/Creatinine Ratio Glucose Lactic Acid Calcium Iron TIBC Iron Saturation Ferritin Total Bilirubin Direct Bilirubin AST ALT Alkaline Phosphatase Lactate Dehydrogenase Troponin I Total Protein Total Protein (PEP) Albumin Globulin Albumin/Globulin Ratio Lipase Vitamin B12 Folate TSH Urine Color Urine Clarity Urine pH Ur Specific [place] Urine Protein Urine Glucose (UA) Urine Ketones Urine Occult Blood Urine Nitrite Urine Bilirubin Urine Urobilinogen Ur Leukocyte Esterase Urine RBC Urine WBC Ur Squamous Epith Cells Amorphous Sediment Urine Bacteria Urine Mucus Acetone Level IgG IgA IgM Albumin (RA) Albumin/Globulin (RA) Ofhic-0-Zlzpvspzq RA Qhlfk-6-Kosihbfbd RA Beta-Globulins (RA) Gamma Globulins (RA) RA M-Hermelindo Free Rachel LC, Quant Free Lambda LC, Quant Free Rachel/Lambda Ratio MRSA (PCR) POC Glucose 229 H 181 H 08/10/19 03:47 WBC RBC Hgb Hct MCV MCH MCHC RDW Std Deviation RDW Coeff of Divya Plt Count MPV Immature Gran % (Auto) Neut % (Auto) Lymph % (Auto) [place] % (Auto) Eos % (Auto) Baso % (Auto) Absolute Neuts (auto) Absolute Lymphs (auto) Total Counted Neutrophils % (Manual) Band Neutrophils % Lymphocytes % (Manual) Monocytes % (Manual) Metamyelocytes % Blast Cells % Nucleated RBC % Differential Comment Diff Path Review Platelet Estimate RBC Morphology Hypochromasia Anisocytosis PT INR APTT Specimen Type Sample Site pH Bicarbonate Actual POC Total CO2 Base Excess O2 Saturation ABG pCO2 ABG pO2 Yobany Test Blood Gas Notified Whom Blood Gas Notified Time Sodium 135 L Potassium 3.6 Chloride 105 Carbon Dioxide 25.0 Anion Gap 5 BUN 28 H Creatinine 1.38 H Estim Creat Clear Calc 39.78 Est GFR (MDRD) Af Amer 51 L Est GFR (MDRD) Non-Af 42 L BUN/Creatinine Ratio 20.3 H Glucose 160 H Lactic Acid Calcium 7.9 L Iron TIBC Iron Saturation Ferritin Total Bilirubin Direct Bilirubin AST ALT Alkaline Phosphatase Lactate Dehydrogenase Troponin I Total Protein Total Protein (PEP) Albumin Globulin Albumin/Globulin Ratio Lipase Vitamin B12 Folate TSH Urine Color Urine Clarity Urine pH Ur Specific [place] Urine Protein Urine Glucose (UA) Urine Ketones Urine Occult Blood Urine Nitrite Urine Bilirubin Urine Urobilinogen Ur Leukocyte Esterase Urine RBC Urine WBC Ur Squamous Epith Cells Amorphous Sediment Urine Bacteria Urine Mucus Acetone Level IgG IgA IgM Albumin (RA) Albumin/Globulin (RA) Oatyz-0-Divmfkyac RA Rpmjx-3-Nulkhxsxk RA Beta-Globulins (RA) Gamma Globulins (RA) RA M-Hermelindo Free Rachel LC, Quant Free Lambda LC, Quant Free Rachel/Lambda Ratio MRSA (PCR) POC Glucose Microbiology 08/09/19 07:00 Blood Culture (Wb) - Right Hand Blood Culture - Preliminary 08/09/19 07:10 Blood Culture (Wb) - Left Hand Blood Culture - Preliminary 08/09/19 09:18 Mucosa - Nasopharyngeal Respiratory Panel (PCR) - Final Clinical Impression(s) from Imaging Studies Renal Ultrasound 08/08/19 08:30 IMPRESSION: The right kidney is smaller than the left, in this otherwise normal bilateral renal ultrasound. Electronically Signed: Yovani Barahona, at 12:01 EST Tel , Service support , Chest X-Ray 08/09/19 06:49 IMPRESSION: Normal portable chest. Electronically Signed: Yovani Barahona, at 10:29 EST Tel , Service support , Chest X-Ray 08/09/19 11:08 IMPRESSION: Normal portable chest. Electronically Signed: Yovani Barahona, at 11:28 EST Tel , Service support , Abdomen/Pelvis CT 08/09/19 17:44 IMPRESSION: Moderate left hydronephrosis and left hydroureter. There is a likely obstructing 6 mm calculus within the mid left ureter at the approximate L4 level. There is left perirenal and periureteral stranding Mild distended loops of small bowel with mild enhancement likely ileus, enteritis pattern most likely. Ischemia cannot be excluded. 1.6 cm soft tissue density within the right breast, most likely dense fibroglandular changes, mass cannot be excluded 1.6 cm left lower lobe pleural-based density most likely benign infectious/inflammatory changes cannot exclude mass Likely cholelithiasis Mild splenomegaly Right renal nephrolithiasis 1.5 cm left ovarian cyst Small amount of free pelvic fluid Joshi catheter within the bladder Electronically Signed: Rene Ye, at 18:56 EST Tel , Service support , Chest CT 08/09/19 17:44 IMPRESSION: Extensive respiratory motion artifact right internal jugular catheter. The tip is in the superior vena cava near the right atrial junction. There is no pneumothorax. 6 mm left lower lobe pleural-based pulmonary opacity likely infectious/inflammatory, 6 month follow-up for stability recommended Mild splenomegaly, the spleen is incompletely included on the ihimo-me-spgn 1.5 cm soft tissue density within the right breast which may be due to focal dense fibroglandular tissue cannot exclude mass. Follow-up mammography is recommended Electronically Signed: Rene Ye at 18:33 EST Tel , Service support , Medical Necessity - Tobacco Use Smoking Status: Never smoker Assessment/Plan All Active Problems Pancytopenia (Acute) Acute kidney injury (Acute) RECOMMENDATIONS: 1. Continue antimicrobials. 2. Okay to discontinue vancomycin. 3. Urology consultation. 4. Obtain repeat blood cultures. IMPRESSIONS: 1. Gram-negative septic shock The patient was initially admitted to the intensive care unit with severe sepsis with unclear source of infection. The patient eventually developed septic shock requiring vasopressor support. Blood cultures were subsequently found to be positive for gram-negative rods. CT abdomen did reveal evidence of hydronephrosis and hydroureter. There is likely a primary urinary tract source of infection with secondary hematogenous spread. The patient has been weaned off of vasopressor support at this time. We will plan to continue broad antimicrobial coverage. Vancomycin can be discontinued. Urology consultation is pending. 2. Acute kidney injury Stable. Likely prerenal in etiology, as the patient's creatinine is improving with volume resuscitation. Continue to monitor urine output. There is no current indication for renal replacement therapy. 3. Pancytopenia Defer management and work-up to hematology. 4. Diabetes mellitus/SOTELO/obesity Complicates care, management, recovery and prognosis. Continue insulin regimen. This note was generated with [employer] dictation software. It may contain incorrect words, spelling, and punctuation that were not noted in checking the note before signing. Code Visit Inpatient E&M: 73187 [facility] L3
[2019-08-10 07:11] LABS: Bedside Glucose 145 mg/dL (70-110)
--- NOTE | 2019-08-10 07:13 | PCM.PN.HOSP ---
Patient Problems: Active and Suspected Problems Pancytopenia (Acute) Acute kidney injury (Acute) Reason for Visit: Septic shock Subjective: Patient seen, became hypotensive during the night resulting in patient being started on aggressive IV fluid resuscitation as well as Levophed. Blood cultures obtained so far positive for gram-negative rods seen 2 out of 2 bottles patient platelets counts continue to decline. CT of the abdomen demonstrated more moderate left hydronephrosis and left hydroureter with a 6 mm calculus within the left ureter at this L4 with perirenal and periureteral stranding Objective: GENERAL: Dyspneic at rest HEENT: Flushed EYES; Anicteric, Normal Conjunctiva NECK; supple, normal thyroid, RESPIRATORY: Diminished to auscultation CARDIOVASCULAR: Regular S1 S2, tachycardic GI: soft, normoactive bowel sounds, : No Renal angle tenderness; EXTREMITIES: No edema, no clubbing, MUSCULOSKELETAL: no muscle waisting NEURO: Awake; no lateralizing signs. SKIN: No Rash PSYCH; Flat affect Vitals/I&O's: Vital Signs Temp Pulse Resp BP Pulse Ox 99.4 F H 80 27 H 112/61 100 08/10/19 07:00 08/10/19 07:00 08/10/19 07:00 08/10/19 07:00 08/10/19 07:00 Oxygen Flow Rate (L/min) 2 Oxygen Delivery Method Nasal Cannula Weight: 93.5 kg Body Mass Index (BMI) 34.9 Finger Stick Blood Glucose 218 Intake and Output for Last 24 Hours 08/08/19 08/09/19 08/10/19 23:59 23:59 23:59 Intake Total 3647.5 / 4167.5 5017.40 / 5226.80 604.50 / 604.50 Output Total 1300 / 1900 900 / 900 Balance 3647.5 / 4017.5 3717.40 / 3326.80 -295.50 / -295.50 Microbiology Past 72 Hours 08/09/19 07:00 Blood Culture (Wb) - Right Hand Blood Culture - Preliminary 08/09/19 07:10 Blood Culture (Wb) - Left Hand Blood Culture - Preliminary 08/09/19 09:18 Mucosa - Nasopharyngeal Respiratory Panel (PCR) - Final Laboratory Results 08/09/19 07:10: Lactic Acid 1.2 08/09/19 08:30: MRSA (PCR) Negative 08/09/19 08:30: Urine Color Yellow, Urine Clarity Clear, Urine pH 6.0, Ur Specific Pickrell 1.015, Urine Protein 100 H, Urine Glucose (UA) 50 H, Urine Ketones 150 H, Urine Occult Blood 250 H, Urine Nitrite Negative, Urine Bilirubin 1 H, Urine Urobilinogen 8 H, Ur Leukocyte Esterase 25 H, Urine RBC 0 SEEN, Urine WBC 0-5 SEEN, Ur Squamous Epith Cells 0 SEEN, Amorphous Sediment 2+, Urine Bacteria 1+, Urine Mucus 0 SEEN 08/09/19 09:43: POC Glucose 174 H 08/09/19 13:50: Troponin I < 0.015 08/09/19 15:31: POC Glucose 237 H 08/09/19 15:35: Specimen Type ART, Sample Site R Radial, pH 7.42, Bicarbonate Actual 17.9 L, POC Total CO2 19, Base Excess -7 L, O2 Saturation 97, ABG pCO2 27.9 L, ABG pO2 84, Yobany Test POS, Blood Gas Notified Whom ICU MD, Blood Gas Notified Time 1530 08/09/19 17:19: POC Glucose 229 H 08/09/19 21:18: POC Glucose 181 H 08/10/19 03:47: WBC 5.4, RBC 3.40 L, Hgb 9.8 L, Hct 29.3 L, MCV 86.2, MCH 28.8, MCHC 33.4, RDW Std Deviation 47.3 H, RDW Coeff of Divya 14.8 H, Plt Count 29 L*, MPV 12.9 H, Neut % (Auto) Not Reportable, Absolute Neuts (auto) 4.3, Absolute Lymphs (auto) 0.38 L, Total Counted 100, Neutrophils % (Manual) 71 H, Band Neutrophils % 8 H, Lymphocytes % (Manual) 7 L, Monocytes % (Manual) 11 H, Metamyelocytes % 3 H, Diff Path Review Zenia escalona, Platelet Estimate MKD DEC, RBC Morphology NORM C+C 08/10/19 03:47: Sodium 135 L, Potassium 3.6, Chloride 105, Carbon Dioxide 25.0, Anion Gap 5, BUN 28 H, Creatinine 1.38 H, Estim Creat Clear Calc 39.78, Est GFR (MDRD) Af Amer 51 L, Est GFR (MDRD) Non-Af 42 L, BUN/Creatinine Ratio 20.3 H, Glucose 160 H, Calcium 7.9 L 08/10/19 07:08: POC Glucose 145 H Current Medications Acetaminophen (Tylenol) 650 mg PO Q6H PRN PRN PRN Reason: Pain Score 1-10/Temp > 100.7 F Last Admin: 08/10/19 00:12 Dose: 650 mg Documented by: Acetaminophen (Tylenol) 650 mg RECTAL Q6H PRN PRN PRN Reason: TEMP > 100 Last Admin: 08/09/19 15:46 Dose: 650 mg Documented by: Al Hydroxide/Mg Hydroxide (Mylanta Ii) 30 ml PO Q6H PRN PRN PRN Reason: Gastric Burning Glucagon () 1 mg IM .X1 PRN PRN Reason: Hypoglycemia Dextrose (Dextrose 10%-Water) 250 mls @ 999 mls/hr IV .Q16M PRN; Protocol PRN Reason: HYPOGLYCEMIA Sodium Chloride () 250 mls @ 15 mls/hr IV .[id number] PRN PRN Reason: Saline Flush Last Infusion: 08/10/19 06:22 Dose: 0 mls/hr Documented by: Sodium Chloride () 250 mls @ 15 mls/hr IV .[id number] PRN PRN Reason: Additional IVPB Infusion Pantoprazole Sodium 40 mg/ (Sodium Chloride) 110 mls @ 330 mls/hr IV Q12 [facility] Last Infusion: 08/09/19 21:46 Dose: Infused Documented by: Piperacillin Sod/Tazobactam (Sod 3.375 gm/ Sodium Chloride) 50 mls @ 12.5 mls/hr IV Q8 [facility] Last Admin: 08/10/19 06:22 Dose: 12.5 mls/hr Documented by: Vancomycin IV Pharmacy to Dose (1 ea/ Sodium Chloride) 500 mls @ 250 mls/hr IV X1 PRN; Protocol PRN Reason: Rx to Dose Norepinephrine Bitartrate 8 mg (/ Sodium Chloride) 250 mls @ 9.375 mls/hr CONT INF .[id number] [facility]; Protocol Last Titration: 08/10/19 07:00 Dose: 0 mcg/min, 0 mls/hr Documented by: Influenza Virus Vaccine Quadrival (Flucelvax /Fluzone ) 0.5 ml IM .ONCE ONE Stop: 08/10/19 10:01 Insulin Glargine (Lantus (Bkc)) 10 units SC BREAKFAST [facility] Last Admin: 08/09/19 09:47 Dose: 10 u Documented by: Insulin Human Lispro (Humalog Kwikpen (Bkc)) 0 unit SC ACHS [facility]; Protocol Last Admin: 08/10/19 07:09 Dose: Not Given Documented by: Magnesium Hydroxide (Milk Of Magnesia) 30 ml PO DAILY PRN PRN PRN Reason: Constipation Melatonin (Melatonin) 3 mg PO QHS PRN PRN PRN Reason: INSOMNIA Ondansetron HCl (Zofran) 4 mg IV Q8H PRN PRN PRN Reason: NAUSEA/VOMITING Last Admin: 08/09/19 02:47 Dose: 4 mg Documented by: Prochlorperazine Edisylate (Compazine Iv) 5 mg IV Q4H PRN PRN PRN Reason: Breakthrough nausea/vomiting Last Admin: 08/08/19 15:58 Dose: 5 mg Documented by: Sodium Chloride () 10 - 40 ml IV UD PRN PRN Reason: SALINE FLUSH Last Admin: 08/09/19 13:59 Dose: 10 ml Documented by: STROKE Vital Signs/Narrative: Vital Signs Temp Pulse Resp BP Pulse Ox 08/10/19 07:00 99.4 F H 80 27 H 112/61 100 08/10/19 06:00 99.3 F H 84 29 H 120/61 100 08/10/19 05:00 99.4 F H 83 19 H 117/57 L 100 08/10/19 04:00 99.1 F 84 28 H 119/61 100 Medical Necessity - Tobacco Use Smoking Status: Never smoker Assessment/Plan All Active Problems Pancytopenia (Acute) Acute kidney injury (Acute) Patient is a 53-year-old lady with history of diabetes mellitus type 2 noncompliant with therapy presented with intractable nausea and vomiting 1. . Septic shock - Patient on the morning of 08/09/2019 was found to be dyspneic at rest with, tachycardic with elevated temperature. Patient met the criteria for sepsis.. Cultures including acute respiratory viral panel as well as chest x-ray ordered. Patient transferred to the intensive care unit for further management. Patient was also started on broad-spectrum antibiotic therapy ?08/10/2019 suspected to be secondary to urogenital source CT of the abdomen and pelvis obtained demonstrated Moderate left hydronephrosis and left hydroureter. There is a likely obstructing 6 mm calculus within the mid left ureter at the approximate L4 level. There is left perirenal and periureteral stranding . Blood cultures so far positive for gram-negative rods 2 out of 2 bottles. Patient was successfully resuscitated with IV fluids and started on Levophed.Consult placed to ID 2. Intractable nausea vomiting ?suspected to be secondary to gastritis possibly NSAID induced gastritis patient was taking ibuprofen prior to her admission discontinued. Started on PPI -08/09/2019 patient still remains symptomatic -08/10/2019: Symptoms improving 3. Acute kidney injury -Suspected to be combination of dehydration as well as NSAID induced nephropathy. On IV fluids with subsequent monitoring of electrolyte ?08/09/2019: Kidney function still remains impaired on IV fluids with subsequent monitoring of electrolyte ?08/10/2019; kidney function improving with rehydration 4. Pancytopenia (thrombocytopenia, leukopenia, as well as anemia) ?Differential diagnoses include bone marrow suppression as well as nonalcoholic fatty liver disease. Admitted to regular nursing floor ordered CBC with differential for monitoring consult also placed to oncology ?08/09/2019 patient was seen in consultation by oncology the day prior notes and recommendations reviewed 5. Diabetes mellitus type 2 ?With complications including hyperglycemia as a result of noncompliance. Patient started on Accu-Cheks before meals and at bedtime with sliding scale coverage as well as long-acting insulin. Also placed on 1800 ADA diet and ordered hemoglobin A1c 6. Nonalcoholic fatty liver disease -per history, this may be contributing to patient's pancytopenia 7. Obesity with BMI of 34.9 ?Weight loss advised 8. DVT prophylaxis Did encourage early ambulation avoided the use of chemoprophylaxis in view of patient's low platelet count 9. Nephrolithiasis ?08/10/2019 CT obtained demonstrated Moderate left hydronephrosis and left hydroureter. There is a likely obstructing 6 mm calculus within the mid left ureter at the approximate L4 level ; consult subsequently placed to urology 10. 6 mm left lower lobe pleural-based pulmonary opacity - Likely infectious/inflammatory, 6 month follow-up for stability recommended 11. Right breast mass Patient to undergo evaluation as outpatient to rule out malignancy Clinical Impression(s) from Imaging Studies Renal Ultrasound 08/08/19 08:30 IMPRESSION: The right kidney is smaller than the left, in this otherwise normal bilateral renal ultrasound. Electronically Signed: Yovani Barahona, at 12:01 EST Tel , Service support , Chest X-Ray 08/09/19 06:49 IMPRESSION: Normal portable chest. Electronically Signed: Yovani Barahona, at 10:29 EST Tel , Service support , Chest X-Ray 08/09/19 11:08 IMPRESSION: Normal portable chest. Electronically Signed: Yovani Barahona, at 11:28 EST Tel , Service support , Abdomen/Pelvis CT 08/09/19 17:44 IMPRESSION: Moderate left hydronephrosis and left hydroureter. There is a likely obstructing 6 mm calculus within the mid left ureter at the approximate L4 level. There is left perirenal and periureteral stranding Mild distended loops of small bowel with mild enhancement likely ileus, enteritis pattern most likely. Ischemia cannot be excluded. 1.6 cm soft tissue density within the right breast, most likely dense fibroglandular changes, mass cannot be excluded 1.6 cm left lower lobe pleural-based density most likely benign infectious/inflammatory changes cannot exclude mass Likely cholelithiasis Mild splenomegaly Right renal nephrolithiasis 1.5 cm left ovarian cyst Small amount of free pelvic fluid Joshi catheter within the bladder Electronically Signed: Rene Ye, at 18:56 EST Tel , Service support , Chest CT 08/09/19 17:44 IMPRESSION: Extensive respiratory motion artifact right internal jugular catheter. The tip is in the superior vena cava near the right atrial junction. There is no pneumothorax. 6 mm left lower lobe pleural-based pulmonary opacity likely infectious/inflammatory, 6 month follow-up for stability recommended Mild splenomegaly, the spleen is incompletely included on the [id number] 1.5 cm soft tissue density within the right breast which may be due to focal dense fibroglandular tissue cannot exclude mass. Follow-up mammography is recommended Electronically Signed: Rene Ye, at 18:33 EST Tel , Service support , Code Visit Inpatient E&M: [id number] Subs Hosp L3
[2019-08-10] MEDS: 0.9% Saline Lock 10 ML Syringe IV (08:19)
--- NOTE | 2019-08-10 10:00 | CASEMGMT ---
RN CM Assessment Note Presentation: Septic Shock, TIMBO, kidney stone with L hydronephrosis and hydroureter Intro role of CM and purpose of RN CM assessment. Demographics, PCP and Pharmacy verified. Pt is awake, alert and able to participate in assessment. also in room- requesting [facility] paperwork be completed for her employer. Initial page including hospitalization for infection completed, pt updated that PCP should complete official [place] paperwork. Pt's employer does not accept this and requires hospital physician to complete form. Will request Dr. Alex complete. - Pt states she does not have PCP because Dr. Coe moved. Is willing to establish with a new PCP, no preference. Call to [facility]. No appts in near future. Call to [facility]- able to see Dr. Crouch next Tuesday for post hospital visit and then can establish as new pt. Pt is agreeable and appt made. Copy of PCP and endocrinology appts given to pt. -Pt states she will need updated scripts for diabetic medication on dc as she does not have sufficient supply and her endocrinology appt isn't until September PCP: No PCP listed. Pt has appt made by SANGITA STRONG with Dr. Crouch August @ 11:30 Specialists: Dr. Sundeep Norris, endocrinology. Pt wishes to change from [facility] Appt made for Tuesday, September @ 1100. Preferred [facility]acy: [facility] Insurance: MMO Prescription Benefit: yes LNOK : Living Arrangements: Lives independently at home with . States no care needs, was working, able to perform own ADLs/IADLs. Transportation: drives DME: none HHC/SNF: none past Patient DC goals: home on dc DC PLAN: Anticipate home on discharge. F/U appointments made with Dr. Crouch and Dr. Norris (endocrinology) SANGITA STRONG advised to contact cm for any concerns/needs that may arise. Deon AMARO RN ACM
[2019-08-10 10:38] LABS: Pathologist Review Reviewed
[2019-08-10] MEDS: Pantoprazole Sodium 40 MG Tablet PO (10:39)
[2019-08-10] MEDS: Insulin Lispro 100 UNIT/ML INSULN.PEN SC (12:38)
[2019-08-10 12:45] LABS: Bedside Glucose 181 mg/dL (70-110)
[2019-08-10] MEDS: Ondansetron 4 MG/2 ML Vial IV (13:21)
[2019-08-10 15:41] LABS: Bedside Glucose 156 mg/dL (70-110)
[2019-08-10 16:08] LABS: Albumin 2.9 g/dL (2.9-4.4); Alpha-1-Globulins 0.4 g/dL (0.0-0.4); Free Kappa Light Chains 7.3 mg/L (3.3-19.4); Free Lambda Light Chains 5.2 mg/L (5.7-26.3); Gamma Globulin 0.5 g/dL (0.4-1.8); Immunoglobulin A 78 mg/dL (87-352); Immunoglobulin G 568 mg/dL (700-1600); Immunoglobulin M 35 mg/dL (26-217); PROEL- TOTAL PROTEIN 5.7 g/dL (6.0-8.5)
--- NOTE | 2019-08-10 16:59 | NURSING ---
To surgery w/ OR staff via bed, family to surgery waiting room
--- NOTE | 2019-08-10 17:12 | CON.PCM_ITS ---
Problem List (1) Left ureteral calculus Status: Acute (2) Hydronephrosis, left Status: Acute (3) Urinary tract infection Status: Acute Reason for Consult Date of Consultation: 08/10/19 Reason for Consultation: left ureteral stone with obstruction and infection History of Present Illness: The patient is a 53 year old F admitted to the hospital 2 days ago with nausea vomiting and became hypotensive. She spiked a temperature and blood and urine cultures grew gram-negative rods. CT scan revealed left ureteral calculus with obstruction. This is her first episode of urolithiasis. Risk benefits and alternatives were discussed and she agreed to proceed with left ureteral stent insertion via cystoscopy. Informed consent was obtained. Past Medical History Past Medical History (Chronic Problems): Chronic Problems DM2 (diabetes mellitus, type 2) (Chronic) BMI 34.0-34.9,adult (Chronic) Allergies metformin [From Glucophage] Adverse Reaction (Verified 08/08/19 06:18) Rash tramadol Adverse Reaction (Verified 08/08/19 06:18) Vomiting Home Medications: Ambulatory Orders Medication Instructions Recorded Aspirin [Aspirin, Baby] 81 mg PO DAILY@0800 08/08/19 Multivitamin/Iron/Folic Acid 1 ea PO DAILY 08/08/19 [Centrum Adults Tablet] Ondansetron [Zofran Odt] 4 mg PO Q6H PRN PRN 08/08/19 Pioglitazone HCl 30 mg PO QHS 08/08/19 Ramipril 5 mg PO DAILY 08/08/19 Smoking Status: Never smoker - *Family History Maternal History Items: Diabetes Paternal History Items: Diabetes, Heart Disease - Dad from complications of congestive heart failure Review of Systems Constitutional: Reports: Chills, Fever Eyes: Denies: Vision Change HEENT: Denies: Difficulty Hearing, Difficulty Swallowing Cardiovascular: Denies: Chest Pain Respiratory: Denies: Shortness of Breath Gastrointestinal: Reports: Abdominal Pain, Nausea, Vomiting Genitourinary: Reports: Frequency, Urgency Gynecological: Denies: Breast symptoms Skin: Denies: Wounds Neurological: Denies: Difficulty swallowing Endocrine: Denies: Change in Body Habitus Patient Problems: Active and Suspected Problems Pancytopenia (Acute) Acute kidney injury (Acute) Left ureteral calculus (Acute) Hydronephrosis, left (Acute) Urinary tract infection (Acute) - Physical Exam Vitals/I&O's: Vital Signs Temp Pulse Resp BP Pulse Ox 100.3 F H 83 21 H 113/63 91 08/10/19 16:00 08/10/19 16:00 08/10/19 16:00 08/10/19 16:00 08/10/19 16:00 Oxygen Flow Rate (L/min) 2 Oxygen Delivery Method Room Air Weight: 93.5 kg Body Mass Index (BMI) 35.4 Finger Stick Blood Glucose 218 Intake and Output for Last 24 Hours 08/08/19 08/09/19 08/10/19 23:59 23:59 23:59 Intake Total 3647.5 / 4167.5 5017.40 / 5226.80 938.75 / 938.75 Output Total 1300 / 1900 1350 / 1350 Balance 3647.5 / 4017.5 3717.40 / 3326.80 -411.25 / -411.25 General: Alert, Oriented x3, Cooperative, No apparent distress HEENT: Atraumatic, Normocephalic Oral: Moist Mucosa Neck: Supple, Trachea Midline Lungs: Normal air movement Cardiovascular: Regular Rhythm Abdomen: Soft Extremities: Tenderness Skin: No rashes Musculoskeletal: No Muscle Wasting Neurological: Cranial nerves II-XII grossly intact Psych/Mental Status: Normal Affect Microbiology Past 72 Hours 08/09/19 07:10 Blood Culture (Wb) - Left Hand Blood Culture - Preliminary 08/09/19 07:00 Blood Culture (Wb) - Right Hand Blood Culture - Preliminary GNR lactose manufacturing engineering manager 08/09/19 08:30 Urine, Catheterized Urine Culture - Preliminary GNR lactose manufacturing engineering manager 08/09/19 09:18 Mucosa - Nasopharyngeal Respiratory Panel (PCR) - Final Laboratory Results 08/09/19 17:19: POC Glucose 229 H 08/09/19 21:18: POC Glucose 181 H 08/10/19 03:47: WBC 5.4, RBC 3.40 L, Hgb 9.8 L, Hct 29.3 L, MCV 86.2, MCH 28.8, MCHC 33.4, RDW Std Deviation 47.3 H, RDW Coeff of Divya 14.8 H, Plt Count 29 L*, MPV 12.9 H, Neut % (Auto) Not Reportable, Absolute Neuts (auto) 4.3, Absolute Lymphs (auto) 0.38 L, Total Counted 100, Neutrophils % (Manual) 71 H, Band Neutrophils % 8 H, Lymphocytes % (Manual) 7 L, Monocytes % (Manual) 11 H, Metamyelocytes % 3 H, Diff Path Review Reviewed, Platelet Estimate MKD DEC, RBC Morphology NORM C+C 08/10/19 03:47: Sodium 135 L, Potassium 3.6, Chloride 105, Carbon Dioxide 25.0, Anion Gap 5, BUN 28 H, Creatinine 1.38 H, Estim Creat Clear Calc 39.78, Est GFR (MDRD) Af Amer 51 L, Est GFR (MDRD) Non-Af 42 L, BUN/Creatinine Ratio 20.3 H, Glucose 160 H, Calcium 7.9 L 08/10/19 07:08: POC Glucose 145 H 08/10/19 12:36: POC Glucose 181 H 08/10/19 15:34: POC Glucose 156 H Current Medications Acetaminophen (Tylenol) 650 mg PO Q6H PRN PRN PRN Reason: Pain Score 1-10/Temp > 100.7 F Last Admin: 08/10/19 13:20 Dose: 650 mg Documented by: Acetaminophen (Tylenol) 650 mg RECTAL Q6H PRN PRN PRN Reason: TEMP > 100 Last Admin: 08/09/19 15:46 Dose: 650 mg Documented by: Al Hydroxide/Mg Hydroxide (Mylanta Ii) 30 ml PO Q6H PRN PRN PRN Reason: Gastric Burning Glucagon () 1 mg IM .X1 PRN PRN Reason: Hypoglycemia Dextrose (Dextrose 10%-Water) 250 mls @ 999 mls/hr IV .Q16M PRN; Protocol PRN Reason: HYPOGLYCEMIA Sodium Chloride () 250 mls @ 15 mls/hr IV .[id number] PRN PRN Reason: Saline Flush Last Infusion: 08/10/19 13:19 Dose: 0 mls/hr Documented by: Sodium Chloride () 250 mls @ 15 mls/hr IV .[id number] PRN PRN Reason: Additional IVPB Infusion Piperacillin Sod/Tazobactam (Sod 3.375 gm/ Sodium Chloride) 50 mls @ 12.5 mls/hr IV Q8 [facility] Last Admin: 08/10/19 13:18 Dose: 12.5 mls/hr Documented by: Influenza Virus Vaccine Quadrival (Flucelvax /Fluzone ) 0.5 ml IM .ONCE ONE Stop: 08/11/19 10:01 Insulin Glargine (Lantus (Bkc)) 10 units SC BREAKFAST [facility] Last Admin: 08/10/19 08:19 Dose: 10 u Documented by: Insulin Human Lispro (Humalog Kwikpen (Bk)) 0 unit SC ACHS [facility]; Protocol Last Admin: 08/10/19 15:35 Dose: Not Given Documented by: Magnesium Hydroxide (Milk Of Magnesia) 30 ml PO DAILY PRN PRN PRN Reason: Constipation Melatonin (Melatonin) 3 mg PO QHS PRN PRN PRN Reason: INSOMNIA Ondansetron HCl (Zofran) 4 mg IV Q8H PRN PRN PRN Reason: NAUSEA/VOMITING Last Admin: 08/10/19 13:21 Dose: 4 mg Documented by: Pantoprazole Sodium (Protonix) 40 mg PO DAILY [facility] Last Admin: 08/10/19 10:39 Dose: 40 mg Documented by: Prochlorperazine Edisylate (Compazine Iv) 5 mg IV Q4H PRN PRN PRN Reason: Breakthrough nausea/vomiting Last Admin: 08/08/19 15:58 Dose: 5 mg Documented by: Sodium Chloride () 10 - 40 ml IV UD PRN PRN Reason: SALINE FLUSH Last Admin: 08/10/19 08:19 Dose: 20 ml Documented by: Assessment/Plan All Active Problems Pancytopenia (Acute) Acute kidney injury (Acute) Left ureteral calculus (Acute) Hydronephrosis, left (Acute) Urinary tract infection (Acute) cystoscopy with left ureteral stent insertion plan to manage stone itself in few weeks after infection clears. continue ICU supportive care
--- NOTE | 2019-08-10 17:22 | PCM.OPRPT ---
Problem List (1) Left ureteral calculus Status: Acute (2) Hydronephrosis, left Status: Acute (3) Urinary tract infection Status: Acute Report of Operation Date of Procedure: 08/10/19 Pre-Operative Diagnosis: left ureteral calculus with hydronephrosis, urinary tract infection and sepsis Post-Operative Diagnosis: Same Surgery/Procedure Performed:: same Type of Anesthesia:: Local MAC Specimen's removed: Urine from the left kidney sent for culture Description of Procedure: The patient is a 53-year-old diabetic female found to have sepsis from a left ureteral obstructing calculus. Informed consent was obtained for cystoscopy and left ureteral stent insertion. Patient was taken to the operating room placed on the operating room table. Anesthesia monitored the head, neck, airway, IV access and vital signs throughout the case. Once anesthesia was appropriately administered the patient was placed into dorsal lithotomy position was prepped and draped in usual sterile fashion. A cystourethroscopy was then performed revealing irritation from the Joshi catheter and no foreign body. The left ureteral orifice was identified and intubated with a 0.035 Glidewire and under fluoroscopic visualization was seen in the renal pelvis. 6 Tunisian 24 cm double-J stent was passed over the wire with good curling in the renal pelvis as well as the urinary bladder. Immediately, profuse amounts of purulent urine drained into the urinary bladder through the ureteral stent. A new culture was sent. A Joshi catheter was reinserted and the bladder was drained. The patient was awakened and taken to the recovery room. Grafts/Implants Used: 6x24 JJ stent - Complications None - Admit VTE Documentation VTE Present on Admission: Yes VTE Mechan Device Prophylaxis: SCD's
[2019-08-10 21:21] LABS: Bedside Glucose 138 mg/dL (70-110)
[2019-08-11] VITALS (17 sets, daily range): BP systolic 109–138; BP diastolic 51–90; PULSE 66–88; RESP 15–25; TEMP 36.6–36.9; O2SAT 92–100
[2019-08-11] MEDS: Acetaminophen 325 MG Tablet 650 MG PO ×2 (00:31→12:44)
[2019-08-11] MEDS: Ondansetron 4 MG/2 ML Vial IV (02:58)
[2019-08-11 03:58] LABS: Absolute Lymphocyte Count 0.46 X10^3/uL (0.83-4.51); Absolute Neutrophil Count 5.2 X10^3/uL (2.0-7.7); Basophil# 0.01 X10^3/uL; Basophil% 0.2 % (0-1); Differential Indicated SCAN CRITERIA MET; Eosinophil# 0.03 X10^3/uL; Eosinophils% 0.5 % (0-5); Hematocrit 29.7 % (37-47); Hemoglobin 9.6 g/dL (12.0-15.0); Lymphocyte # 0.46 X10^3/ul (4.0); Lymphocyte % 7.6 % (19-41); Mean Corp Hgb Conc 32.3 g/dL (32-36); Mean Corpuscular Hgb 27.6 pg (27.0-32.0); Mean Corpuscular Volume 85.3 fL (81-99); Mean Platelet Vol. 11.1 fl (6.2-12.0); Monocyte# 0.29 X10^3/uL; Monocyte% 4.8 % (0-10); NRBC Flagged by Analyzer 0 % (0-5); Neutrophil # 5.16 X10^3/uL (2.7-7.7); Neutrophil % 84.6 % (47-70); POSITIVE COUNT YES; POSITIVE DIFFERENTIAL YES; POSITIVE MORPHOLOGY YES; Platelet Count 54 K/mm3 (150-450); RBC Distribution Width CV 14.9 % (11.6-14.6); RBC Distribution Width SD 46.6 fl (35.1-43.9); Red Blood Count 3.48 M/mm3 (4.2-5.4); White Blood Count 6.1 K/mm3 (4.4-11.0)
[2019-08-11 04:13] LABS: Anion Gap 8 (5-15); BUN 31 mg/dL (7-18); BUN/Creat Ratio 27.9 RATIO (10-20); Chloride 101 mmol/L (98-107); Creatinine, Serum 1.11 mg/dL (0.55-1.02); EST Glomerular Filtration Rate 54 mL/min (>60); Est Glom Filt Rate - Afr Amer 66 mL/min (>60); Estimated Creatinine Clearance 49.45 ml/min; Glucose 184 mg/dL (74-106); Potassium 2.9 mmol/L (3.5-5.1); Sodium Level 134 mmol/L (136-145)
[2019-08-11] MEDS: Ipratropium/Albuterol Sulfate 3 ML AMPUL.NEB INHALATION (04:18)
[2019-08-11 04:29] LABS: Differential Comment SCANNED; Platelet Estimate MOD DEC (ADEQ)
--- NOTE | 2019-08-11 06:07 | PN_ITS ---
Subjective: The patient was seen and examined at the bedside this morning. Events from the last 24 hours have been reviewed. The patient is currently afebrile, hemodynamically stable and maintaining appropriate oxygen saturations on 2 L/min via nasal cannula. The patient was taken to the OR yesterday and underwent cystoscopy and left ureteral stent insertion. Creatinine is improving. Potassium is low this morning at 2.9. Objective: The patient's most recent lab work, culture data and imaging studies have all been personally reviewed. Blood and urine cultures were both positive for gram- negative zaria, lactose caretaker resort. General: Alert, Oriented x3, Cooperative, No apparent distress HEENT: Atraumatic, Normocephalic Oral: No Gingival or Mucosal Lesions/ Ulcerations Neck: Supple, No Nodes, Trachea Midline Lungs: No rhonchi, No wheeze, No rales, Diminished Cardiovascular: Regular rate, Regular Rhythm, Normal S1, Normal S2 Abdomen: Bowel Sounds Present, Soft, Non Tender, Obese Extremities: No clubbing, No cyanosis Skin: No breakdown Musculoskeletal: No Tenderness to Palpation of Joints or Extremities Lymphatic: No Cervical, Supraclavicular, or Inguinal Adenopathy Neurological: Cranial nerves II-XII grossly intact, Neuro grossly intact Psych/Mental Status: Alert and oriented to time, place, person, mood and affect Vital Signs Temp Pulse Resp BP Pulse Ox 97.8 F 78 19 H 131/59 H 99 08/11/19 04:00 08/11/19 05:00 08/11/19 05:00 08/11/19 05:00 08/11/19 05:00 Oxygen Flow Rate (L/min) 2 Oxygen Delivery Method Nasal Cannula Weight: 210 lb 1.608 oz Body Mass Index (BMI) 35.4 Finger Stick Blood Glucose 218 Intake and Output for Last 24 Hours 08/09/19 08/10/19 08/11/19 23:59 23:59 23:59 Intake Total 5017.40 / 5226.80 1370.00 / 1370.00 659.5 / 659.5 Output Total 1300 / 1900 1625 / 1625 325 / 325 Balance 3717.40 / 3326.80 -255.00 / -255.00 334.5 / 334.5 Labs (Last 48 Hours) 02/26/20 02/27/20 02/27/20 17:26 06:35 07:10 WBC RBC Hgb Hct MCV MCH MCHC RDW Std Deviation RDW Coeff of Divya Plt Count MPV Immature Gran % (Auto) Neut % (Auto) Lymph % (Auto) [place] % (Auto) Eos % (Auto) Baso % (Auto) Absolute Neuts (auto) Absolute Lymphs (auto) Total Counted Neutrophils % (Manual) Band Neutrophils % Lymphocytes % (Manual) Monocytes % (Manual) Metamyelocytes % Nucleated RBC % Differential Comment Diff Path Review Platelet Estimate RBC Morphology Specimen Type Sample Site pH Bicarbonate Actual POC Total CO2 Base Excess O2 Saturation ABG pCO2 ABG pO2 Yobany Test Blood Gas Notified Whom Blood Gas Notified Time Sodium Potassium Chloride Carbon Dioxide Anion Gap BUN Creatinine Estim Creat Clear Calc Est GFR (MDRD) Af Amer Est GFR (MDRD) Non-Af BUN/Creatinine Ratio Glucose Lactic Acid 1.2 Calcium Troponin I Total Protein (PEP) 5.7 L Globulin 2.8 Urine Color Urine Clarity Urine pH Ur Specific [place] Urine Protein Urine Glucose (UA) Urine Ketones Urine Occult Blood Urine Nitrite Urine Bilirubin Urine Urobilinogen Ur Leukocyte Esterase Urine RBC Urine WBC Ur Squamous Epith Cells Amorphous Sediment Urine Bacteria Urine Mucus IgG 568 L IgA 78 L IgM 35 Immunofixation Screen Comment Albumin (RA) 2.9 Albumin/Globulin (RA) 1.1 Cdfzz-1-Nxnpddnor RA 0.4 Titdx-4-Zsggasckw RA 1.0 Beta-Globulins (RA) 0.9 Gamma Globulins (RA) 0.5 RA M-Hermelindo RA Comments Comment Free [place] LC, Quant 7.3 Free Lambda LC, Quant 5.2 L Free [place]/Lambda Ratio 1.40 MRSA (PCR) POC Glucose 173 H Blood Type 08/09/19 08/09/19 08/09/19 08:30 08:30 09:43 WBC RBC Hgb Hct MCV MCH MCHC RDW Std Deviation RDW Coeff of Divya Plt Count MPV Immature Gran % (Auto) Neut % (Auto) Lymph % (Auto) [place] % (Auto) Eos % (Auto) Baso % (Auto) Absolute Neuts (auto) Absolute Lymphs (auto) Total Counted Neutrophils % (Manual) Band Neutrophils % Lymphocytes % (Manual) Monocytes % (Manual) Metamyelocytes % Nucleated RBC % Differential Comment Diff Path Review Platelet Estimate RBC Morphology Specimen Type Sample Site pH Bicarbonate Actual POC Total CO2 Base Excess O2 Saturation ABG pCO2 ABG pO2 Yobany Test Blood Gas Notified Whom Blood Gas Notified Time Sodium Potassium Chloride Carbon Dioxide Anion Gap BUN Creatinine Estim Creat Clear Calc Est GFR (MDRD) Af Amer Est GFR (MDRD) Non-Af BUN/Creatinine Ratio Glucose Lactic Acid Calcium Troponin I Total Protein (PEP) Globulin Urine Color Yellow Urine Clarity Clear Urine pH 6.0 Ur Specific [place] 1.015 Urine Protein 100 H Urine Glucose (UA) 50 H Urine Ketones 150 H Urine Occult Blood 250 H Urine Nitrite Negative Urine Bilirubin 1 H Urine Urobilinogen 8 H Ur Leukocyte Esterase 25 H Urine RBC 0 SEEN Urine WBC 0-5 SEEN Ur Squamous Epith Cells 0 SEEN Amorphous Sediment 2+ Urine Bacteria 1+ Urine Mucus 0 SEEN IgG IgA IgM Immunofixation Screen Albumin (RA) Albumin/Globulin (RA) Giyqx-5-Zsaolorbw RA Wylsl-2-Ehkxzkdol RA Beta-Globulins (RA) Gamma Globulins (RA) RA M-Hermelindo RA Comments Free [place] LC, Quant Free Lambda LC, Quant Free [place]/Lambda Ratio MRSA (PCR) Negative POC Glucose 174 H Blood Type 08/09/19 08/09/19 08/09/19 13:50 15:31 15:35 WBC RBC Hgb Hct MCV MCH MCHC RDW Std Deviation RDW Coeff of Divya Plt Count MPV Immature Gran % (Auto) Neut % (Auto) Lymph % (Auto) [place] % (Auto) Eos % (Auto) Baso % (Auto) Absolute Neuts (auto) Absolute Lymphs (auto) Total Counted Neutrophils % (Manual) Band Neutrophils % Lymphocytes % (Manual) Monocytes % (Manual) Metamyelocytes % Nucleated RBC % Differential Comment Diff Path Review Platelet Estimate RBC Morphology Specimen Type ART Sample Site R Radial pH 7.42 Bicarbonate Actual 17.9 L POC Total CO2 19 Base Excess -7 L O2 Saturation 97 ABG pCO2 27.9 L ABG pO2 84 Yobany Test POS Blood Gas Notified Whom ICU Blood Gas Notified Time 1530 Sodium Potassium Chloride Carbon Dioxide Anion Gap BUN Creatinine Estim Creat Clear Calc Est GFR (MDRD) Af Amer Est GFR (MDRD) Non-Af BUN/Creatinine Ratio Glucose Lactic Acid Calcium Troponin I < 0.015 Total Protein (PEP) Globulin Urine Color Urine Clarity Urine pH Ur Specific [place] Urine Protein Urine Glucose (UA) Urine Ketones Urine Occult Blood Urine Nitrite Urine Bilirubin Urine Urobilinogen Ur Leukocyte Esterase Urine RBC Urine WBC Ur Squamous Epith Cells Amorphous Sediment Urine Bacteria Urine Mucus IgG IgA IgM Immunofixation Screen Albumin (RA) Albumin/Globulin (RA) Fhkbh-8-Yjcpirgdo RA Fcbmg-4-Qoiqinnbn RA Beta-Globulins (RA) Gamma Globulins (RA) RA M-Hermelindo RA Comments Free [place] LC, Quant Free Lambda LC, Quant Free [place]/Lambda Ratio MRSA (PCR) POC Glucose 237 H Blood Type 08/09/19 08/09/19 08/10/19 17:19 21:18 03:47 WBC 5.4 RBC 3.40 L Hgb 9.8 L Hct 29.3 L MCV 86.2 MCH 28.8 MCHC 33.4 RDW Std Deviation 47.3 H RDW Coeff of Divya 14.8 H Plt Count 29 L* MPV 12.9 H Immature Gran % (Auto) Neut % (Auto) Not Reportable Lymph % (Auto) [place] % (Auto) Eos % (Auto) Baso % (Auto) Absolute Neuts (auto) 4.3 Absolute Lymphs (auto) 0.38 L Total Counted 100 Neutrophils % (Manual) 71 H Band Neutrophils % 8 H Lymphocytes % (Manual) 7 L Monocytes % (Manual) 11 H Metamyelocytes % 3 H Nucleated RBC % Differential Comment Diff Path Review Reviewed Platelet Estimate MKD DEC RBC Morphology NORM C+C Specimen Type Sample Site pH Bicarbonate Actual POC Total CO2 Base Excess O2 Saturation ABG pCO2 ABG pO2 Yobany Test Blood Gas Notified Whom Blood Gas Notified Time Sodium Potassium Chloride Carbon Dioxide Anion Gap BUN Creatinine Estim Creat Clear Calc Est GFR (MDRD) Af Amer Est GFR (MDRD) Non-Af BUN/Creatinine Ratio Glucose Lactic Acid Calcium Troponin I Total Protein (PEP) Globulin Urine Color Urine Clarity Urine pH Ur Specific [place] Urine Protein Urine Glucose (UA) Urine Ketones Urine Occult Blood Urine Nitrite Urine Bilirubin Urine Urobilinogen Ur Leukocyte Esterase Urine RBC Urine WBC Ur Squamous Epith Cells Amorphous Sediment Urine Bacteria Urine Mucus IgG IgA IgM Immunofixation Screen Albumin (RA) Albumin/Globulin (RA) Duvsy-5-Mxhszwiym RA Mfaey-2-Nacvkwvuz RA Beta-Globulins (RA) Gamma Globulins (RA) RA M-Hermelindo RA Comments Free [place] LC, Quant Free Lambda LC, Quant Free [place]/Lambda Ratio MRSA (PCR) POC Glucose 229 H 181 H Blood Type 08/10/19 08/10/19 08/10/19 03:47 07:08 12:36 WBC RBC Hgb Hct MCV MCH MCHC RDW Std Deviation RDW Coeff of Divya Plt Count MPV Immature Gran % (Auto) Neut % (Auto) Lymph % (Auto) [place] % (Auto) Eos % (Auto) Baso % (Auto) Absolute Neuts (auto) Absolute Lymphs (auto) Total Counted Neutrophils % (Manual) Band Neutrophils % Lymphocytes % (Manual) Monocytes % (Manual) Metamyelocytes % Nucleated RBC % Differential Comment Diff Path Review Platelet Estimate RBC Morphology Specimen Type Sample Site pH Bicarbonate Actual POC Total CO2 Base Excess O2 Saturation ABG pCO2 ABG pO2 Yobany Test Blood Gas Notified Whom Blood Gas Notified Time Sodium 135 L Potassium 3.6 Chloride 105 Carbon Dioxide 25.0 Anion Gap 5 BUN 28 H Creatinine 1.38 H Estim Creat Clear Calc 39.78 Est GFR (MDRD) Af Amer 51 L Est GFR (MDRD) Non-Af 42 L BUN/Creatinine Ratio 20.3 H Glucose 160 H Lactic Acid Calcium 7.9 L Troponin I Total Protein (PEP) Globulin Urine Color Urine Clarity Urine pH Ur Specific [place] Urine Protein Urine Glucose (UA) Urine Ketones Urine Occult Blood Urine Nitrite Urine Bilirubin Urine Urobilinogen Ur Leukocyte Esterase Urine RBC Urine WBC Ur Squamous Epith Cells Amorphous Sediment Urine Bacteria Urine Mucus IgG IgA IgM Immunofixation Screen Albumin (RA) Albumin/Globulin (RA) Wdohn-5-Cnnduixeb RA Homvs-9-Lazhcryvn RA Beta-Globulins (RA) Gamma Globulins (RA) RA M-Hermelindo RA Comments Free [place] LC, Quant Free Lambda LC, Quant Free [place]/Lambda Ratio MRSA (PCR) POC Glucose 145 H 181 H Blood Type 08/10/19 08/10/19 08/10/19 15:34 18:30 21:16 WBC RBC Hgb Hct MCV MCH MCHC RDW Std Deviation RDW Coeff of Divya Plt Count MPV Immature Gran % (Auto) Neut % (Auto) Lymph % (Auto) [place] % (Auto) Eos % (Auto) Baso % (Auto) Absolute Neuts (auto) Absolute Lymphs (auto) Total Counted Neutrophils % (Manual) Band Neutrophils % Lymphocytes % (Manual) Monocytes % (Manual) Metamyelocytes % Nucleated RBC % Differential Comment Diff Path Review Platelet Estimate RBC Morphology Specimen Type Sample Site pH Bicarbonate Actual POC Total CO2 Base Excess O2 Saturation ABG pCO2 ABG pO2 Yobany Test Blood Gas Notified Whom Blood Gas Notified Time Sodium Potassium Chloride Carbon Dioxide Anion Gap BUN Creatinine Estim Creat Clear Calc Est GFR (MDRD) Af Amer Est GFR (MDRD) Non-Af BUN/Creatinine Ratio Glucose Lactic Acid Calcium Troponin I Total Protein (PEP) Globulin Urine Color Urine Clarity Urine pH Ur Specific [place] Urine Protein Urine Glucose (UA) Urine Ketones Urine Occult Blood Urine Nitrite Urine Bilirubin Urine Urobilinogen Ur Leukocyte Esterase Urine RBC Urine WBC Ur Squamous Epith Cells Amorphous Sediment Urine Bacteria Urine Mucus IgG IgA IgM Immunofixation Screen Albumin (RA) Albumin/Globulin (RA) Dtwwp-2-Sgkmvgair RA Gbdpt-6-Fesszaycb RA Beta-Globulins (RA) Gamma Globulins (RA) RA M-Hermelindo RA Comments Free [place] LC, Quant Free Lambda LC, Quant Free [place]/Lambda Ratio MRSA (PCR) POC Glucose 156 H 138 H Blood Type A POSITIVE 08/11/19 08/11/19 03:35 03:35 WBC 6.1 RBC 3.48 L Hgb 9.6 L Hct 29.7 L MCV 85.3 MCH 27.6 MCHC 32.3 RDW Std Deviation 46.6 H RDW Coeff of Divya 14.9 H Plt Count 54 L MPV 11.1 Immature Gran % (Auto) 2.300 H Neut % (Auto) 84.6 H Lymph % (Auto) 7.6 L [place] % (Auto) 4.8 Eos % (Auto) 0.5 Baso % (Auto) 0.2 Absolute Neuts (auto) 5.2 Absolute Lymphs (auto) 0.46 L Total Counted Neutrophils % (Manual) Band Neutrophils % Lymphocytes % (Manual) Monocytes % (Manual) Metamyelocytes % Nucleated RBC % 0 Differential Comment SCANNED Diff Path Review Platelet Estimate MOD DEC RBC Morphology Specimen Type Sample Site pH Bicarbonate Actual POC Total CO2 Base Excess O2 Saturation ABG pCO2 ABG pO2 Yobany Test Blood Gas Notified Whom Blood Gas Notified Time Sodium 134 L Potassium 2.9 L Chloride 101 Carbon Dioxide 25.0 Anion Gap 8 BUN 31 H Creatinine 1.11 H Estim Creat Clear Calc 49.45 Est GFR (MDRD) Af Amer 66 Est GFR (MDRD) Non-Af 54 L BUN/Creatinine Ratio 27.9 H Glucose 184 H Lactic Acid Calcium 8.0 L Troponin I Total Protein (PEP) Globulin Urine Color Urine Clarity Urine pH Ur Specific [place] Urine Protein Urine Glucose (UA) Urine Ketones Urine Occult Blood Urine Nitrite Urine Bilirubin Urine Urobilinogen Ur Leukocyte Esterase Urine RBC Urine WBC Ur Squamous Epith Cells Amorphous Sediment Urine Bacteria Urine Mucus IgG IgA IgM Immunofixation Screen Albumin (RA) Albumin/Globulin (RA) Hmcay-6-Cetaxaygr RA Etfft-6-Humkdydyu RA Beta-Globulins (RA) Gamma Globulins (RA) RA M-Hermelindo RA Comments Free [place] LC, Quant Free Lambda LC, Quant Free [place]/Lambda Ratio MRSA (PCR) POC Glucose Blood Type Microbiology 08/10/19 08:20 Blood Culture (Wb) - Right Forearm Blood Culture - Preliminary 08/09/19 07:10 Blood Culture (Wb) - Left Hand Blood Culture - Preliminary 08/09/19 07:00 Blood Culture (Wb) - Right Hand Blood Culture - Preliminary GNR lactose caretaker resort 08/09/19 08:30 Urine, Catheterized Urine Culture - Preliminary GNR lactose caretaker resort 08/09/19 09:18 Mucosa - Nasopharyngeal Respiratory Panel (PCR) - Final Clinical Impression(s) from Imaging Studies Renal Ultrasound 08/08/19 08:30 IMPRESSION: The right kidney is smaller than the left, in this otherwise normal bilateral renal ultrasound. Electronically Signed: Yovani Barahona at 12:01 EST Tel , Service support , Chest X-Ray 08/09/19 06:49 IMPRESSION: Normal portable chest. Electronically Signed: Yovani Barahona at 10:29 EST Tel , Service support , Chest X-Ray 08/09/19 11:08 IMPRESSION: Normal portable chest. Electronically Signed: Yovani Barahona at 11:28 EST Tel , Service support , Abdomen/Pelvis CT 08/09/19 17:44 IMPRESSION: Moderate left hydronephrosis and left hydroureter. There is a likely obstructing 6 mm calculus within the mid left ureter at the approximate L4 level. There is left perirenal and periureteral stranding Mild distended loops of small bowel with mild enhancement likely ileus, enteritis pattern most likely. Ischemia cannot be excluded. 1.6 cm soft tissue density within the right breast, most likely dense fibroglandular changes, mass cannot be excluded 1.6 cm left lower lobe pleural-based density most likely benign infectious/inflammatory changes cannot exclude mass Likely cholelithiasis Mild splenomegaly Right renal nephrolithiasis 1.5 cm left ovarian cyst Small amount of free pelvic fluid Joshi catheter within the bladder Electronically Signed: Rene Ye, at 18:56 EST Tel , Service support , Chest CT 08/09/19 17:44 IMPRESSION: Extensive respiratory motion artifact right internal jugular catheter. The tip is in the superior vena cava near the right atrial junction. There is no pneumothorax. 6 mm left lower lobe pleural-based pulmonary opacity likely infectious/inflammatory, 6 month follow-up for stability recommended Mild splenomegaly, the spleen is incompletely included on the [id number] 1.5 cm soft tissue density within the right breast which may be due to focal dense fibroglandular tissue cannot exclude mass. Follow-up mammography is recommended Electronically Signed: Rene Ye at 18:33 EST Tel , Service support , Medical Necessity - Tobacco Use Smoking Status: Never smoker Assessment/Plan All Active Problems Pancytopenia (Acute) Acute kidney injury (Acute) Left ureteral calculus (Acute) Hydronephrosis, left (Acute) Urinary tract infection (Acute) RECOMMENDATIONS: 1. Continue antimicrobials. 2. Potassium repletion as ordered. 3. Wean supplemental oxygen to maintain saturations at or above 90%. 4. Encourage incentive spirometer use and mobilize patient as tolerated. 5. Joshi catheter can be removed, if okay from urology perspective. 6. The patient is medically stable for transfer out of the intensive care unit. IMPRESSIONS: 1. Gram-negative septic shock The patient was initially admitted to the intensive care unit with severe sepsis with unclear source of infection. The patient eventually developed septic shock requiring vasopressor support. Blood cultures were subsequently found to be positive for gram-negative rods. CT abdomen did reveal evidence of hydronephrosis and hydroureter. There is likely a primary urinary tract source of infection with secondary hematogenous spread. With appropriate antimicrobial coverage, the patient was able to be weaned off of vasopressor support and remains hemodynamically stable. She was evaluated by urology and underwent cystoscopy with ureteral stent placement. 2. Acute kidney injury Improving. Likely prerenal in etiology, as the patient's creatinine is improving with volume resuscitation. Continue to monitor urine output. There is no current indication for renal replacement therapy. Okay from my perspective to remove Joshi catheter. 3. Hypokalemia Electrolyte repletion as ordered. 4. Pancytopenia Defer management and work-up to hematology. 5. Diabetes mellitus/SOTELO/obesity Complicates care, management, recovery and prognosis. Continue insulin regimen. This note was generated with [employer] dictation software. It may contain incorrect words, spelling, and punctuation that were not noted in checking the note before signing. Code Visit Inpatient E&M: 97594 Subs Hosp L2
[2019-08-11 07:11] LABS: Bedside Glucose 195 mg/dL (70-110)
--- NOTE | 2019-08-11 07:37 | PN_ITS ---
Patient Problems: Active and Suspected Problems Pancytopenia (Acute) Acute kidney injury (Acute) Left ureteral calculus (Acute) Hydronephrosis, left (Acute) Urinary tract infection (Acute) Reason for Visit: Follow-up sepsis Subjective: Patient underwent cystoscopy and left ureteral stent placement on account of left ureteral calculus with hydronephrosis, urinary tract infection and sepsis on 08/10/[address] Banerjee ?Potassium 2.9 repletion initiated Microbiology 08/09/19 07:10 Blood Culture (Wb) - Left Hand Blood Culture - Final GNR lactose employee relations administrator 08/09/19 07:00 Blood Culture (Wb) - Right Hand Blood Culture - Final Escherichia coli 08/10/19 08:20 Blood Culture (Wb) - Right Forearm Blood Culture - Preliminary 08/09/19 08:30 Urine, Catheterized Urine Culture - Preliminary GNR lactose employee relations administrator Objective: GENERAL: Ill-looking HEENT: Flushed EYES; Anicteric, Normal Conjunctiva NECK; supple, normal thyroid, RESPIRATORY: Diminished to auscultation CARDIOVASCULAR: Regular S1 S2, tachycardic GI: soft, normoactive bowel sounds, : No Renal angle tenderness; EXTREMITIES: No edema, no clubbing, MUSCULOSKELETAL: no muscle waisting NEURO: Awake; no lateralizing signs. SKIN: No Rash PSYCH; Flat affect Vitals/I&O's: Vital Signs Temp Pulse Resp BP Pulse Ox 97.8 F 80 20 H 128/70 H 100 08/11/19 04:00 08/11/19 06:00 08/11/19 06:00 08/11/19 06:00 08/11/19 06:00 Oxygen Flow Rate (L/min) 2 Oxygen Delivery Method Nasal Cannula Weight: 95.3 kg Body Mass Index (BMI) 35.4 Finger Stick Blood Glucose 218 Intake and Output for Last 24 Hours 08/09/19 08/10/19 08/11/19 23:59 23:59 23:59 Intake Total 5017.40 / 5226.80 1370.00 / 1370.00 659.5 / 659.5 Output Total 1300 / 1900 1625 / 1625 325 / 325 Balance 3717.40 / 3326.80 -255.00 / -255.00 334.5 / 334.5 Microbiology Past 72 Hours 08/09/19 07:10 Blood Culture (Wb) - Left Hand Blood Culture - Final GNR lactose employee relations administrator 08/09/19 07:00 Blood Culture (Wb) - Right Hand Blood Culture - Final Escherichia coli 08/10/19 08:20 Blood Culture (Wb) - Right Forearm Blood Culture - Preliminary 08/09/19 08:30 Urine, Catheterized Urine Culture - Preliminary GNR lactose employee relations administrator 08/09/19 09:18 Mucosa - Nasopharyngeal Respiratory Panel (PCR) - Final Laboratory Results 08/08/19 17:26: Total Protein (PEP) 5.7 L, Globulin 2.8, IgG 568 L, IgA 78 L, IgM 35, Immunofixation Screen Comment, Albumin (RA) 2.9, Albumin/Globulin (RA) 1.1, Nluri-6-Sdrqtefch RA 0.4, Iruyn-3-Irlbqztxn RA 1.0, Beta-Globulins (RA) 0.9, Gamma Globulins (RA) 0.5, RA M-Hermelindo , RA Comments Comment, [place] LC, Quant 7.3, Free Lambda LC, Quant 5.2 L, [place]/Lambda Ratio 1.40 08/10/19 03:47: Diff Path Review Reviewed 08/10/19 12:36: POC Glucose 181 H 08/10/19 15:34: POC Glucose 156 H 08/10/19 18:30: Blood Type A POSITIVE 08/10/19 21:16: POC Glucose 138 H 08/11/19 03:35: Sodium 134 L, Potassium 2.9 L, Chloride 101, Carbon Dioxide 25.0, Anion Gap 8, BUN 31 H, Creatinine 1.11 H, Estim Creat Clear Calc 49.45, Est GFR (MDRD) Af Amer 66, Est GFR (MDRD) Non-Af 54 L, BUN/Creatinine Ratio 27.9 H, Glucose 184 H, Calcium 8.0 L 08/11/19 03:35: WBC 6.1, RBC 3.48 L, Hgb 9.6 L, Hct 29.7 L, MCV 85.3, MCH 27.6, MCHC 32.3, RDW Std Deviation 46.6 H, RDW Coeff of Divya 14.9 H, Plt Count 54 L, MPV 11.1, Immature Gran % (Auto) 2.300 H, Neut % (Auto) 84.6 H, Lymph % (Auto) 7.6 L, [place] % (Auto) 4.8, Eos % (Auto) 0.5, Baso % (Auto) 0.2, Absolute Neuts (auto) 5.2, Absolute Lymphs (auto) 0.46 L, Nucleated RBC % 0, Differential Comment SCANNED, Platelet Estimate MOD DEC 08/11/19 07:05: POC Glucose 195 H Current Medications Acetaminophen (Tylenol) 650 mg PO Q6H PRN PRN PRN Reason: Pain Score 1-10/Temp > 100.7 F Last Admin: 08/11/19 00:31 Dose: 650 mg Documented by: Acetaminophen (Tylenol) 650 mg RECTAL Q6H PRN PRN PRN Reason: TEMP > 100 Last Admin: 08/09/19 15:46 Dose: 650 mg Documented by: Al Hydroxide/Mg Hydroxide (Mylanta Ii) 30 ml PO Q6H PRN PRN PRN Reason: Gastric Burning Albuterol/Ipratropium (Duoneb) 3 ml INHALATION Q4H.RT PRN PRN Reason: WHEEZING Glucagon () 1 mg IM .X1 PRN PRN Reason: Hypoglycemia Dextrose (Dextrose 10%-Water) 250 mls @ 999 mls/hr IV .Q16M PRN; Protocol PRN Reason: HYPOGLYCEMIA Sodium Chloride () 250 mls @ 15 mls/hr IV .[id number] PRN PRN Reason: Saline Flush Last Infusion: 08/11/19 05:11 Dose: 0 mls/hr Documented by: Sodium Chloride () 250 mls @ 15 mls/hr IV .[id number] PRN PRN Reason: Additional IVPB Infusion Piperacillin Sod/Tazobactam (Sod 3.375 gm/ Sodium Chloride) 50 mls @ 12.5 mls/hr IV Q8 AKUA Last Admin: 08/11/19 05:11 Dose: 12.5 mls/hr Documented by: Influenza Virus Vaccine Quadrival (Flucelvax /Fluzone ) 0.5 ml IM .ONCE ONE Stop: 08/11/19 10:01 Insulin Glargine (Lantus (Bk)) 10 units SC [facility] Last Admin: 08/10/19 08:19 Dose: 10 u Documented by: Insulin Human Lispro (Humalog Kwikpen ([facility])) 0 unit SC ACHS [facility]; Protocol Last Admin: 08/10/19 21:16 Dose: Not Given Documented by: Magnesium Hydroxide (Milk Of Magnesia) 30 ml PO DAILY PRN PRN PRN Reason: Constipation Melatonin (Melatonin) 3 mg PO QHS PRN PRN PRN Reason: INSOMNIA Ondansetron HCl (Zofran) 4 mg IV Q8H PRN PRN PRN Reason: NAUSEA/VOMITING Last Admin: 08/11/19 02:58 Dose: 4 mg Documented by: Pantoprazole Sodium (Protonix) 40 mg PO DAILY [facility] Last Admin: 08/10/19 10:39 Dose: 40 mg Documented by: Prochlorperazine Edisylate (Compazine Iv) 5 mg IV Q4H PRN PRN PRN Reason: Breakthrough nausea/vomiting Last Admin: 08/08/19 15:58 Dose: 5 mg Documented by: Sodium Chloride () 10 - 40 ml IV UD PRN PRN Reason: SALINE FLUSH Last Admin: 08/10/19 08:19 Dose: 20 ml Documented by: STROKE Vital Signs/Narrative: Vital Signs Temp Pulse Resp BP Pulse Ox 08/11/19 06:00 80 20 H 128/70 H 100 08/11/19 05:00 78 19 H 131/59 H 99 08/11/19 04:18 77 24 H 08/11/19 04:00 97.8 F 73 18 115/63 100 Medical Necessity - Tobacco Use Smoking Status: Never smoker Assessment/Plan All Active Problems Pancytopenia (Acute) Acute kidney injury (Acute) Left ureteral calculus (Acute) Hydronephrosis, left (Acute) Urinary tract infection (Acute) Patient is a 53-year-old lady with history of diabetes mellitus type 2 noncompliant with therapy presented with intractable nausea and vomiting 1. . Septic shock - Patient on the morning of 08/09/2019 was found to be dyspneic at rest with, tachycardic with elevated temperature. Patient met the criteria for sepsis.. Cultures including acute respiratory viral panel as well as chest x-ray ordered. Patient transferred to the intensive care unit for further management. Patient was also started on broad-spectrum antibiotic therapy ?08/10/2019 suspected to be secondary to urogenital source CT of the abdomen and pelvis obtained demonstrated Moderate left hydronephrosis and left hydroureter. There is a likely obstructing 6 mm calculus within the mid left ureter at the approximate L4 level. There is left perirenal and periureteral stranding . Blood cultures so far positive for gram-negative rods 2 out of 2 bottles. Patient was successfully resuscitated with IV fluids and started on Levophed.Consult placed to ID -08/11/2019 ; Patient underwent cystoscopy and left ureteral stent placement on account of left ureteral calculus with hydronephrosis, urinary tract infection and sepsis on 08/10/[address] Banerjee -08/11/2019: Blood cultures so far positive for E. coli, urine cultures gram- negative rods 2. Intractable nausea vomiting ?suspected to be secondary to gastritis possibly NSAID induced gastritis patient was taking ibuprofen prior to her admission discontinued. Started on PPI -08/09/2019 patient still remains symptomatic -08/10/2019: Symptoms improving 3. Acute kidney injury -Suspected to be combination of dehydration as well as NSAID induced nephropathy. On IV fluids with subsequent monitoring of electrolyte ?08/09/2019: Kidney function still remains impaired on IV fluids with subsequent monitoring of electrolyte ?08/10/2019; kidney function improving with rehydration 4. Pancytopenia (thrombocytopenia, leukopenia, as well as anemia) ?Differential diagnoses include bone marrow suppression as well as nonalcoholic fatty liver disease. Admitted to regular nursing floor ordered CBC with differential for monitoring consult also placed to oncology ?08/09/2019 patient was seen in consultation by oncology the day prior notes and recommendations reviewed 5. Diabetes mellitus type 2 ?With complications including hyperglycemia as a result of noncompliance. Patient started on Accu-Cheks before meals and at bedtime with sliding scale coverage as well as long-acting insulin. Also placed on 1800 ADA diet and ordered hemoglobin A1c 6. Nonalcoholic fatty liver disease -per history, this may be contributing to patient's pancytopenia 7. Obesity with BMI of 34.9 ?Weight loss advised 8. DVT prophylaxis Did encourage early ambulation avoided the use of chemoprophylaxis in view of patient's low platelet count 9. Nephrolithiasis ?08/10/2019 CT obtained demonstrated Moderate left hydronephrosis and left hydroureter. There is a likely obstructing 6 mm calculus within the mid left ureter at the approximate L4 level ; consult subsequently placed to urology ?08/11/2019: Patient underwent cystoscopy and left ureteral stent placement on ac count of left ureteral calculus with hydronephrosis, urinary tract infection and sepsis on 08/10/[address] Banerjee 10. 6 mm left lower lobe pleural-based pulmonary opacity - Likely infectious/inflammatory, 6 month follow-up for stability recommended 11. Right breast mass Patient to undergo evaluation as outpatient to rule out malignancy . Hypokalemia ?Corrected per protocol, monitoring serial BMPs Code Visit Inpatient E&M: 53129 Subs Hosp L3
[2019-08-11] MEDS: Insulin Lispro 100 UNIT/ML INSULN.PEN SC ×4 (08:22→22:27)
--- NOTE | 2019-08-11 10:00 | PN_ITS ---
Physical Exam Subjective: Sitting up in bed, family in room. Feeling much better this morning. The pain has resolved. No new issues. - Physical Exam Vital Signs Temp 98.4 F 08/11/19 09:00 Pulse 83 08/11/19 09:00 Resp 20 H 08/11/19 09:00 BP 137/67 H 08/11/19 09:00 Pulse Ox 97 08/11/19 09:00 Intake & Output 08/09/19 08/10/19 08/11/19 23:59 23:59 23:59 Intake Total 5017.40 / 5226.80 1370.00 / 1370.00 659.5 / 659.5 Output Total 1300 / 1900 1625 / 1625 325 / 325 Balance 3717.40 / 3326.80 -255.00 / -255.00 334.5 / 334.5 Weight: 93.5 kg 95.3 kg Intake: Oral 2100 / 2300 1065 / 1065 550 / 550 Intake, IV Amount 2917.40 / 2926.80 305.00 / 305.00 109.5 / 109.5 0.9% Normal Saline 250 ML @ 15 43.5 / 43.5 143.25 / 143.25 59.5 / 59.5 mls/hr IV .[id number] PRN Rx#: [id number] KCL 20MEQ in 0.9% NS 1,000 ML @ 1457.5 / 1457.5 150 mls/hr IV .Q6H40M AKUA Rx#: [id number] Lactated Ringers 1,000 ML @ 999 500 / 500 mls/hr IV .Q31M AKUA Rx#: [id number] Levophed 8 MG In 0.9% Normal 56.40 / 65.80 11.75 / 11.75 Saline 250 ML @ 5 MCG/MIN 9.375 mls/hr CONT INF .[id number] AKUA Rx#:[id number] Protonix 40 MG In 0.9% Normal 220 / 220 Saline 100 ML @ 330 mls/hr IV Q12 AKUA Rx#:[id number] Vancomycin IV 1,000 MG/20 ML In 540 / 540 0.9% Normal Saline 500 ML @ 250 mls/hr IV X1 ONE Rx#: [id number] Zosyn 3.375 GM In 0.9% Normal 100.00 / 100.00 150 / 150 50 / 50 Saline 50 ML @ 12.5 mls/hr IV Q8 [facility] Rx#:[id number] Blood Product 0 / 0 Platelets Apheresis Pphr Lr Sd 0 / 0 Unit [id number] Output: Urine 1300 / 1900 1625 / 1625 325 / 325 General: Alert, Oriented x3, Cooperative, No apparent distress HEENT: Atraumatic, Normocephalic Oral: Moist Mucosa Neck: Supple, Trachea Midline Lungs: Normal air movement Cardiovascular: Regular rate Abdomen: Soft Rectal: Exam deferred Skin: No rashes Musculoskeletal: No Muscle Wasting Neurological: Cranial nerves II-XII grossly intact Psych/Mental Status: Normal Affect Microbiology Past 72 Hours 08/09/19 08:30 Urine Culture - Preliminary Urine, Catheterized Escherichia coli 08/09/19 07:10 Blood Culture - Final Blood Culture (Wb) - Left Hand GNR lactose diesel engine operator 08/09/19 07:00 Blood Culture - Final Blood Culture (Wb) - Right Hand Escherichia coli 08/10/19 08:20 Blood Culture - Preliminary Blood Culture (Wb) - Right Forearm 08/09/19 09:18 Respiratory Panel (PCR) - Final Mucosa - Nasopharyngeal Laboratory Tests Past 24 Hrs 08/08/19 08/10/19 08/10/19 17:26 03:47 18:30 WBC RBC Hgb Hct MCV MCH MCHC RDW Std Deviation RDW Coeff of Divya Plt Count MPV Immature Gran % (Auto) Neut % (Auto) Lymph % (Auto) [place] % (Auto) Eos % (Auto) Baso % (Auto) Absolute Neuts (auto) Absolute Lymphs (auto) Nucleated RBC % Differential Comment Diff Path Review Reviewed Platelet Estimate Sodium Potassium Chloride Carbon Dioxide Anion Gap BUN Creatinine Estim Creat Clear Calc Est GFR (MDRD) Af Amer Est GFR (MDRD) Non-Af BUN/Creatinine Ratio Glucose Calcium Total Protein (PEP) 5.7 L Globulin 2.8 IgG 568 L IgA 78 L IgM 35 Immunofixation Screen Comment Albumin (RA) 2.9 Albumin/Globulin (RA) 1.1 Fzoge-6-Ixmlsjqte RA 0.4 Vradk-3-Oeypaaioc RA 1.0 Beta-Globulins (RA) 0.9 Gamma Globulins (RA) 0.5 RA M-Hermelindo RA Comments Comment Free [place] LC, Quant 7.3 Free [place]ambda LC, Quant 5.2 L Free [place]/Lambda Ratio 1.40 Blood Type A POSITIVE 08/11/19 08/11/19 03:35 03:35 WBC 6.1 RBC 3.48 L Hgb 9.6 L Hct 29.7 L MCV 85.3 MCH 27.6 MCHC 32.3 RDW Std Deviation 46.6 H RDW Coeff of Divya 14.9 H Plt Count 54 L MPV 11.1 Immature Gran % (Auto) 2.300 H Neut % (Auto) 84.6 H Lymph % (Auto) 7.6 L [place] % (Auto) 4.8 Eos % (Auto) 0.5 Baso % (Auto) 0.2 Absolute Neuts (auto) 5.2 Absolute Lymphs (auto) 0.46 L Nucleated RBC % 0 Differential Comment SCANNED Diff Path Review Platelet Estimate MOD DEC Sodium 134 L Potassium 2.9 L Chloride 101 Carbon Dioxide 25.0 Anion Gap 8 BUN 31 H Creatinine 1.11 H Estim Creat Clear Calc 49.45 Est GFR (MDRD) Af Amer 66 Est GFR (MDRD) Non-Af 54 L BUN/Creatinine Ratio 27.9 H Glucose 184 H Calcium 8.0 L Total Protein (PEP) Globulin IgG IgA IgM Immunofixation Screen Albumin (RA) Albumin/Globulin (RA) Hmvfa-4-Bfgwoggzy RA Zcsfn-3-Apsihzdhh RA Beta-Globulins (RA) Gamma Globulins (RA) RA M-Hermelindo RA Comments Free [place] LC, Quant Free [place]ambda LC, Quant Free [place]/Lambda Ratio Blood Type Medical Necessity - Tobacco Use Smoking Status: Never smoker Assessment/Plan All Active Problems Pancytopenia (Acute) Acute kidney injury (Acute) Left ureteral calculus (Acute) Hydronephrosis, left (Acute) Urinary tract infection (Acute) Stent in place. Continue antibiotics and supportive care. Can follow up with as outpatient for definitive management of the left ureteral calculus. Will follow peripherally. Available.
[2019-08-11] MEDS: Pantoprazole Sodium 40 MG Tablet PO (10:41)
[2019-08-11 11:31] LABS: Bedside Glucose 221 mg/dL (70-110)
[2019-08-11 16:20] LABS: Bedside Glucose 212 mg/dL (70-110)
[2019-08-11] MEDS: Mag Hydrox/Al Hydrox/Simeth 30 ML UDC PO (20:10)
[2019-08-11 22:40] LABS: Bedside Glucose 222 mg/dL (70-110)
[2019-08-12] MEDS: Ondansetron 4 MG/2 ML Vial IV (02:18)
[2019-08-12 02:22] VITALS: BP 134/76; PULSE 71; RESP 18; TEMP 36.1; O2SAT 94
[2019-08-12] MEDS: guaiFENesin 1,200 MG Tablet 1200 MG PO ×3 (02:36→20:48)
[2019-08-12 07:30] VITALS: O2SAT 97
[2019-08-12 07:46] LABS: Absolute Lymphocyte Count 0.63 X10^3/uL (0.83-4.51); Absolute Neutrophil Count 3.7 X10^3/uL (2.0-7.7); Basophil# 0.01 X10^3/uL; Basophil% 0.2 % (0-1); Eosinophil# 0.06 X10^3/uL; Eosinophils% 1.2 % (0-5); Lymphocyte # 0.63 X10^3/ul (4.0); Mean Corp Hgb Conc 33.3 g/dL (32-36); Mean Corpuscular Hgb 27.8 pg (27.0-32.0); Mean Corpuscular Volume 83.3 fL (81-99); Mean Platelet Vol. 12.2 fl (6.2-12.0); Monocyte# 0.38 X10^3/uL; Monocyte% 7.9 % (0-10); NRBC Flagged by Analyzer 0 % (0-5); Neutrophil % 76.5 % (47-70); POSITIVE COUNT YES; Platelet Count 60 K/mm3 (150-450); RBC Distribution Width CV 14.6 % (11.6-14.6); RBC Distribution Width SD 45.4 fl (35.1-43.9); White Blood Count 4.8 K/mm3 (4.4-11.0)
--- NOTE | 2019-08-12 08:02 | PCM.PN.PUL ---
Patient Problems: Active and Suspected Problems Pancytopenia (Acute) Acute kidney injury (Acute) Left ureteral calculus (Acute) Hydronephrosis, left (Acute) Urinary tract infection (Acute) Subjective: The patient was seen and examined at the bedside this morning. Events from the last 24 hours have been reviewed. The patient is currently afebrile, hemodynamically stable and maintaining appropriate oxygen saturations on room air. The patient has done well clinically following transfer out of the intensive care unit. Objective: The patient's most recent lab work, culture data and imaging studies have all been personally reviewed. Blood and urine cultures were both positive for E. coli. - Physical Exam Vitals/I&O's: Vital Signs Temp Pulse Resp BP Pulse Ox 97.0 F L 71 18 134/76 H 94 08/12/19 02:22 08/12/19 02:22 08/12/19 02:22 08/12/19 02:22 08/12/19 02:22 Oxygen Flow Rate (L/min) 2 Oxygen Delivery Method Room Air Weight: 209 lb 10.554 oz Body Mass Index (BMI) 35.4 Finger Stick Blood Glucose 218 Intake and Output for Last 24 Hours 08/10/19 08/11/19 08/12/19 23:59 23:59 23:59 Intake Total 1370.00 / 1370.00 1599.5 / 2099.5 1050 / 1050 Output Total 1625 / 1625 1525 / 2525 1999 Balance -255.00 / -255.00 74.5 / -425.5 -950 / -950 General: Alert, Cooperative, No apparent distress HEENT: Atraumatic, Normocephalic Oral: No Gingival or Mucosal Lesions/ Ulcerations Neck: Supple, No Nodes, Trachea Midline Lungs: No rhonchi, No wheeze, No rales, Diminished Cardiovascular: Regular rate, Regular Rhythm, Normal S1, Normal S2, No murmurs Abdomen: Bowel Sounds Present, Soft, Non Tender, Non-Distended, Obese Extremities: No clubbing, No cyanosis, No edema Skin: No breakdown Musculoskeletal: No Tenderness to Palpation of Joints or Extremities, No Muscle Wasting Lymphatic: No Cervical, Supraclavicular, or Inguinal Adenopathy Neurological: Cranial nerves II-XII grossly intact, Neuro grossly intact Psych/Mental Status: Normal Affect, Appropriate Labs (Last 48 Hours) 08/08/19 08/10/19 08/10/19 17:26 03:47 12:36 WBC RBC Hgb Hct MCV MCH MCHC RDW Std Deviation RDW Coeff of Divya Plt Count MPV Immature Gran % (Auto) Neut % (Auto) Lymph % (Auto) [place] % (Auto) Eos % (Auto) Baso % (Auto) Absolute Neuts (auto) Absolute Lymphs (auto) Nucleated RBC % Differential Comment Diff Path Review Reviewed Platelet Estimate Sodium Potassium Chloride Carbon Dioxide Anion Gap BUN Creatinine Estim Creat Clear Calc Est GFR (MDRD) Af Amer Est GFR (MDRD) Non-Af BUN/Creatinine Ratio Glucose Calcium Total Protein (PEP) 5.7 L Globulin 2.8 IgG 568 L IgA 78 L IgM 35 Immunofixation Screen Comment Albumin (RA) 2.9 Albumin/Globulin (RA) 1.1 Gjupq-3-Jdplfemwt RA 0.4 Zmflm-8-Kegauytgx RA 1.0 Beta-Globulins (RA) 0.9 Gamma Globulins (RA) 0.5 RA M-Hermelindo RA Comments Comment Free [place] LC, Quant 7.3 Free Lambda LC, Quant 5.2 L Free [place]/Lambda Ratio 1.40 POC Glucose 181 H Blood Type 08/10/19 08/10/19 08/10/19 15:34 18:30 21:16 WBC RBC Hgb Hct MCV MCH MCHC RDW Std Deviation RDW Coeff of Divya Plt Count MPV Immature Gran % (Auto) Neut % (Auto) Lymph % (Auto) [place] % (Auto) Eos % (Auto) Baso % (Auto) Absolute Neuts (auto) Absolute Lymphs (auto) Nucleated RBC % Differential Comment Diff Path Review Platelet Estimate Sodium Potassium Chloride Carbon Dioxide Anion Gap BUN Creatinine Estim Creat Clear Calc Est GFR (MDRD) Af Amer Est GFR (MDRD) Non-Af BUN/Creatinine Ratio Glucose Calcium Total Protein (PEP) Globulin IgG IgA IgM Immunofixation Screen Albumin (RA) Albumin/Globulin (RA) Irptp-0-Irhcwtjxu RA Jmqiz-7-Lrqwrjroj RA Beta-Globulins (RA) Gamma Globulins (RA) RA M-Hermelindo RA Comments Free [place] LC, Quant Free Lambda LC, Quant Free [place]/Lambda Ratio POC Glucose 156 H 138 H Blood Type A POSITIVE 08/11/19 08/11/19 08/11/19 03:35 03:35 07:05 WBC 6.1 RBC 3.48 L Hgb 9.6 L Hct 29.7 L MCV 85.3 MCH 27.6 MCHC 32.3 RDW Std Deviation 46.6 H RDW Coeff of Divya 14.9 H Plt Count 54 L MPV 11.1 Immature Gran % (Auto) 2.300 H Neut % (Auto) 84.6 H Lymph % (Auto) 7.6 L [place] % (Auto) 4.8 Eos % (Auto) 0.5 Baso % (Auto) 0.2 Absolute Neuts (auto) 5.2 Absolute Lymphs (auto) 0.46 L Nucleated RBC % 0 Differential Comment SCANNED Diff Path Review Platelet Estimate MOD DEC Sodium 134 L Potassium 2.9 L Chloride 101 Carbon Dioxide 25.0 Anion Gap 8 BUN 31 H Creatinine 1.11 H Estim Creat Clear Calc 49.45 Est GFR (MDRD) Af Amer 66 Est GFR (MDRD) Non-Af 54 L BUN/Creatinine Ratio 27.9 H Glucose 184 H Calcium 8.0 L Total Protein (PEP) Globulin IgG IgA IgM Immunofixation Screen Albumin (RA) Albumin/Globulin (RA) Rlvrh-0-Cvrmsobkb RA Cbggw-9-Gukdshjyp RA Beta-Globulins (RA) Gamma Globulins (RA) RA M-Hermelindo RA Comments Free [place] LC, Quant Free Lambda LC, Quant Free [place]/Lambda Ratio POC Glucose 195 H Blood Type 08/11/19 08/11/19 08/11/19 11:26 16:14 22:26 WBC RBC Hgb Hct MCV MCH MCHC RDW Std Deviation RDW Coeff of Divya Plt Count MPV Immature Gran % (Auto) Neut % (Auto) Lymph % (Auto) [place] % (Auto) Eos % (Auto) Baso % (Auto) Absolute Neuts (auto) Absolute Lymphs (auto) Nucleated RBC % Differential Comment Diff Path Review Platelet Estimate Sodium Potassium Chloride Carbon Dioxide Anion Gap BUN Creatinine Estim Creat Clear Calc Est GFR (MDRD) Af Amer Est GFR (MDRD) Non-Af BUN/Creatinine Ratio Glucose Calcium Total Protein (PEP) Globulin IgG IgA IgM Immunofixation Screen Albumin (RA) Albumin/Globulin (RA) Heqyd-3-Lgkhitydo RA Vnqsi-5-Zkqutbelh RA Beta-Globulins (RA) Gamma Globulins (RA) RA M-Hermelindo RA Comments Free [place] LC, Quant Free Lambda LC, Quant Free [place]/Lambda Ratio POC Glucose 221 H 212 H 222 H Blood Type 08/12/19 08/12/19 07:03 07:03 WBC 4.8 RBC 3.60 L Hgb 10.0 L Hct 30.0 L MCV 83.3 MCH 27.8 MCHC 33.3 RDW Std Deviation 45.4 H RDW Coeff of Divya 14.6 Plt Count 60 L MPV 12.2 H Immature Gran % (Auto) 1.200 H Neut % (Auto) 76.5 H Lymph % (Auto) 13.0 L [place] % (Auto) 7.9 Eos % (Auto) 1.2 Baso % (Auto) 0.2 Absolute Neuts (auto) 3.7 Absolute Lymphs (auto) 0.63 L Nucleated RBC % 0 Differential Comment Diff Path Review Platelet Estimate Sodium Pending Potassium Pending Chloride Pending Carbon Dioxide Pending Anion Gap Pending BUN Pending Creatinine Pending Estim Creat Clear Calc Est GFR (MDRD) Af Amer Pending Est GFR (MDRD) Non-Af Pending BUN/Creatinine Ratio Pending Glucose Pending Calcium Pending Total Protein (PEP) Globulin IgG IgA IgM Immunofixation Screen Albumin (RA) Albumin/Globulin (RA) Grbxj-3-Blutwfzsu RA Phnry-2-Cjbalnvoe RA Beta-Globulins (RA) Gamma Globulins (RA) RA M-Hermelindo RA Comments Free [place] LC, Quant Free Lambda LC, Quant Free [place]/Lambda Ratio POC Glucose Blood Type Microbiology 08/09/19 08:30 Urine, Catheterized Urine Culture - Final Escherichia coli 08/10/19 18:35 Urine, Cystoscopy Urine Culture - Preliminary GNR lactose compliance examiner 08/09/19 07:10 Blood Culture (Wb) - Left Hand Blood Culture - Final GNR lactose compliance examiner 08/09/19 07:00 Blood Culture (Wb) - Right Hand Blood Culture - Final Escherichia coli 08/10/19 08:20 Blood Culture (Wb) - Right Forearm Blood Culture - Preliminary Clinical Impression(s) from Imaging Studies Renal Ultrasound 08/08/19 08:30 IMPRESSION: The right kidney is smaller than the left, in this otherwise normal bilateral renal ultrasound. Electronically Signed: Yovani Barahona, at 12:01 EST Tel , Service support , Chest X-Ray 08/09/19 06:49 IMPRESSION: Normal portable chest. Electronically Signed: Yovani Barahona, at 10:29 EST Tel , Service support , Chest X-Ray 08/09/19 11:08 IMPRESSION: Normal portable chest. Electronically Signed: Yovani Barahona, at 11:28 EST Tel , Service support , Abdomen/Pelvis CT 08/09/19 17:44 IMPRESSION: Moderate left hydronephrosis and left hydroureter. There is a likely obstructing 6 mm calculus within the mid left ureter at the approximate L4 level. There is left perirenal and periureteral stranding Mild distended loops of small bowel with mild enhancement likely ileus, enteritis pattern most likely. Ischemia cannot be excluded. 1.6 cm soft tissue density within the right breast, most likely dense fibroglandular changes, mass cannot be excluded 1.6 cm left lower lobe pleural-based density most likely benign infectious/inflammatory changes cannot exclude mass Likely cholelithiasis Mild splenomegaly Right renal nephrolithiasis 1.5 cm left ovarian cyst Small amount of free pelvic fluid Joshi catheter within the bladder Electronically Signed: Rene Ye, at 18:56 EST Tel , Service support , Chest CT 08/09/19 17:44 IMPRESSION: Extensive respiratory motion artifact right internal jugular catheter. The tip is in the superior vena cava near the right atrial junction. There is no pneumothorax. 6 mm left lower lobe pleural-based pulmonary opacity likely infectious/inflammatory, 6 month follow-up for stability recommended Mild splenomegaly, the spleen is incompletely included on the dgoja-nu-kogw 1.5 cm soft tissue density within the right breast which may be due to focal dense fibroglandular tissue cannot exclude mass. Follow-up mammography is recommended Electronically Signed: Rene Ye, at 18:33 EST Tel , Service support , Current Medications Acetaminophen (Tylenol) 650 mg PO Q6H PRN PRN PRN Reason: Pain Score 1-10/Temp > 100.7 F Last Admin: 08/11/19 12:44 Dose: 650 mg Documented by: Acetaminophen (Tylenol) 650 mg RECTAL Q6H PRN PRN PRN Reason: TEMP > 100 Last Admin: 08/09/19 15:46 Dose: 650 mg Documented by: Al Hydroxide/Mg Hydroxide (Mylanta Ii) 30 ml PO Q6H PRN PRN PRN Reason: Gastric Burning Last Admin: 08/11/19 20:10 Dose: 30 ml Documented by: Albuterol/Ipratropium (Duoneb) 3 ml INHALATION Q4H.RT PRN PRN Reason: WHEEZING Glucagon () 1 mg IM .X1 PRN PRN Reason: Hypoglycemia Guaifenesin (Mucinex) 1,200 mg PO BID [facility] Last Admin: 08/12/19 02:36 Dose: 1,200 mg Documented by: Dextrose (Dextrose 10%-Water) 250 mls @ 999 mls/hr IV .Q16M PRN; Protocol PRN Reason: HYPOGLYCEMIA Sodium Chloride () 250 mls @ 15 mls/hr IV .[id number] PRN PRN Reason: Saline Flush Last Infusion: 08/11/19 17:42 Dose: 15 mls/hr Documented by: Sodium Chloride () 250 mls @ 15 mls/hr IV .[id number] PRN PRN Reason: Additional IVPB Infusion Piperacillin Sod/Tazobactam (Sod 3.375 gm/ Sodium Chloride) 50 mls @ 12.5 mls/hr IV Q8 [facility] Last Admin: 08/12/19 06:28 Dose: 12.5 mls/hr Documented by: Influenza Virus Vaccine Quadrival (Flucelvax /Fluzone ) 0.5 ml IM .ONCE ONE Stop: 08/12/19 10:01 Insulin Glargine (Lantus (Bkc)) 10 units SC BREAKFAST [facility] Last Admin: 08/11/19 08:22 Dose: 10 u Documented by: Insulin Human Lispro (Humalog Kwikpen (Bkc)) 0 unit SC ACHS [facility]; Protocol Last Admin: 08/11/19 22:27 Dose: 4 u Documented by: Magnesium Hydroxide (Milk Of Magnesia) 30 ml PO DAILY PRN PRN PRN Reason: Constipation Melatonin (Melatonin) 3 mg PO QHS PRN PRN PRN Reason: INSOMNIA Ondansetron HCl (Zofran) 4 mg IV Q8H PRN PRN PRN Reason: NAUSEA/VOMITING Last Admin: 08/12/19 02:18 Dose: 4 mg Documented by: Pantoprazole Sodium (Protonix) 40 mg PO DAILY [facility] Last Admin: 08/11/19 10:41 Dose: 40 mg Documented by: Potassium Chloride (K-Dur) 20 meq PO BIDCM [facility] Last Admin: 08/11/19 16:15 Dose: 20 meq Documented by: Prochlorperazine Edisylate (Compazine Iv) 5 mg IV Q4H PRN PRN PRN Reason: Breakthrough nausea/vomiting Last Admin: 08/08/19 15:58 Dose: 5 mg Documented by: Sodium Chloride () 10 - 40 ml IV UD PRN PRN Reason: SALINE FLUSH Last Admin: 08/10/19 08:19 Dose: 20 ml Documented by: Medical Necessity - Tobacco Use Smoking Status: Never smoker Assessment/Plan All Active Problems Pancytopenia (Acute) Acute kidney injury (Acute) Left ureteral calculus (Acute) Hydronephrosis, left (Acute) Urinary tract infection (Acute) RECOMMENDATIONS: 1. Continue antimicrobials. 2. Encourage incentive spirometer use and mobilize patient as tolerated. 3. Given the patient's lack of further ICU or pulmonary needs, will sign off. Please call with any additional questions. IMPRESSIONS: 1. Gram-negative septic shock The patient was initially admitted to the intensive care unit with severe sepsis with unclear source of infection. The patient eventually developed septic shock requiring vasopressor support. Blood and urine cultures were subsequently found to be positive for gram-negative rods. CT abdomen did reveal evidence of hydronephrosis and hydroureter. There is likely a primary urinary tract source of infection with secondary hematogenous spread. With appropriate antimicrobial coverage, the patient was able to be weaned off of vasopressor support and remains hemodynamically stable. She was evaluated by urology and underwent cystoscopy with ureteral stent placement. 2. Acute kidney injury Improving. Likely prerenal in etiology, as the patient's creatinine is improving with volume resuscitation. Continue to monitor urine output. There is no current indication for renal replacement therapy. 3. Pancytopenia Defer management and work-up to hematology. 4. Diabetes mellitus/SOTELO/obesity Complicates care, management, recovery and prognosis. Continue insulin regimen. This note was generated with Flite dictation software. It may contain incorrect words, spelling, and punctuation that were not noted in checking the note before signing. Code Visit Inpatient E&M: 66888 Subs Hosp L2
[2019-08-12 08:08] LABS: Anion Gap 7 (5-15); BUN 23 mg/dL (7-18); BUN/Creat Ratio 28.4 RATIO (10-20); Calcium,Total 8.1 mg/dL (8.5-10.1); Chloride 102 mmol/L (98-107); Creatinine, Serum 0.81 mg/dL (0.55-1.02); EST Glomerular Filtration Rate 78 mL/min (>60); Est Glom Filt Rate - Afr Amer 94 mL/min (>60); Estimated Creatinine Clearance 67.77 ml/min; Glucose 168 mg/dL (74-106); Potassium 3.6 mmol/L (3.5-5.1); Sodium Level 135 mmol/L (136-145)
[2019-08-12 08:10] LABS: Bedside Glucose 157 mg/dL (70-110)
[2019-08-12 08:12] VITALS: BP 141/72; PULSE 69; RESP 18; TEMP 37.7; O2SAT 95
--- NOTE | 2019-08-12 08:41 | PN_ITS ---
Patient Problems: Active and Suspected Problems Pancytopenia (Acute) Acute kidney injury (Acute) Left ureteral calculus (Acute) Hydronephrosis, left (Acute) Urinary tract infection (Acute) Reason for Visit: Follow-up septic shock secondary to acute pyelonephritis Subjective: Patient was transferred from the intensive care unit to regular nursing floor on 08/11/2019. Her clinical condition continues to improve. Plan is to discontinue her Joshi catheter. Urine and blood cultures came back positive for E. coli Objective: GENERAL:cooperative HEENT: Flushed EYES; Anicteric, Normal Conjunctiva NECK; supple, normal thyroid, RESPIRATORY: Diminished to auscultation CARDIOVASCULAR: Regular S1 S2, tachycardic GI: soft, normoactive bowel sounds, : No Renal angle tenderness; EXTREMITIES: No edema, no clubbing, MUSCULOSKELETAL: no muscle waisting NEURO: Awake; no lateralizing signs. SKIN: No Rash PSYCH; Flat affect Vitals/I&O's: Vital Signs Temp Pulse Resp BP Pulse Ox 99.9 F H 69 18 141/72 H 95 08/12/19 08:12 08/12/19 08:12 08/12/19 08:12 08/12/19 08:12 08/12/19 08:12 Oxygen Flow Rate (L/min) 2 Oxygen Delivery Method Room Air Weight: 95.1 kg Body Mass Index (BMI) 35.4 Finger Stick Blood Glucose 218 Intake and Output for Last 24 Hours 08/10/19 08/11/19 08/12/19 23:59 23:59 23:59 Intake Total 1370.00 / 1370.00 1599.5 / 2099.5 1050 / 1050 Output Total 1625 / 1625 1525 / 2525 1999 Balance -255.00 / -255.00 74.5 / -425.5 -950 / -950 Microbiology Past 72 Hours 08/09/19 08:30 Urine, Catheterized Urine Culture - Final Escherichia coli 08/10/19 18:35 Urine, Cystoscopy Urine Culture - Preliminary GNR lactose medical housekeeper 08/09/19 07:10 Blood Culture (Wb) - Left Hand Blood Culture - Final GNR lactose medical housekeeper 08/09/19 07:00 Blood Culture (Wb) - Right Hand Blood Culture - Final Escherichia coli 08/10/19 08:20 Blood Culture (Wb) - Right Forearm Blood Culture - Preliminary 08/09/19 09:18 Mucosa - Nasopharyngeal Respiratory Panel (PCR) - Final Laboratory Results 08/11/19 11:26: POC Glucose 221 H 08/11/19 16:14: POC Glucose 212 H 08/11/19 22:26: POC Glucose 222 H 08/12/19 07:03: Sodium 135 L, Potassium 3.6, Chloride 102, Carbon Dioxide 26.0, Anion Gap 7, BUN 23 H, Creatinine 0.81, Estim Creat Clear Calc 67.77, Est GFR (MDRD) Af Amer 94, Est GFR (MDRD) Non-Af 78, BUN/Creatinine Ratio 28.4 H, Glucose 168 H, Calcium 8.1 L 08/12/19 07:03: WBC 4.8, RBC 3.60 L, Hgb 10.0 L, Hct 30.0 L, MCV 83.3, MCH 27.8, MCHC 33.3, RDW Std Deviation 45.4 H, RDW Coeff of Divya 14.6, Plt Count 60 L, MPV 12.2 H, Immature Gran % (Auto) 1.200 H, Neut % (Auto) 76.5 H, Lymph % (Auto) 13.0 L, [place] % (Auto) 7.9, Eos % (Auto) 1.2, Baso % (Auto) 0.2, Absolute Neuts (auto) 3.7, Absolute Lymphs (auto) 0.63 L, Nucleated RBC % 0 08/12/19 08:07: POC Glucose 157 H Current Medications Acetaminophen (Tylenol) 650 mg PO Q6H PRN PRN PRN Reason: Pain Score 1-10/Temp > 100.7 F Last Admin: 08/11/19 12:44 Dose: 650 mg Documented by: Acetaminophen (Tylenol) 650 mg RECTAL Q6H PRN PRN PRN Reason: TEMP > 100 Last Admin: 08/09/19 15:46 Dose: 650 mg Documented by: Al Hydroxide/Mg Hydroxide (Mylanta Ii) 30 ml PO Q6H PRN PRN PRN Reason: Gastric Burning Last Admin: 08/11/19 20:10 Dose: 30 ml Documented by: Albuterol/Ipratropium (Duoneb) 3 ml INHALATION Q4H.RT PRN PRN Reason: WHEEZING Glucagon () 1 mg IM .X1 PRN PRN Reason: Hypoglycemia Guaifenesin (Mucinex) 1,200 mg PO BID [facility] Last Admin: 08/12/19 02:36 Dose: 1,200 mg Documented by: Dextrose (Dextrose 10%-Water) 250 mls @ 999 mls/hr IV .Q16M PRN; Protocol PRN Reason: HYPOGLYCEMIA Sodium Chloride () 250 mls @ 15 mls/hr IV .[id number] PRN PRN Reason: Saline Flush Last Infusion: 08/11/19 17:42 Dose: 15 mls/hr Documented by: Sodium Chloride () 250 mls @ 15 mls/hr IV .[id number] PRN PRN Reason: Additional IVPB Infusion Piperacillin Sod/Tazobactam (Sod 3.375 gm/ Sodium Chloride) 50 mls @ 12.5 mls/hr IV Q8 [facility] Last Admin: 08/12/19 06:28 Dose: 12.5 mls/hr Documented by: Influenza Virus Vaccine Quadrival (Flucelvax /Fluzone ) 0.5 ml IM .ONCE ONE Stop: 08/12/19 10:01 Insulin Glargine (Lantus (Bkc)) 10 units SC BREAKFAST [facility] Last Admin: 08/11/19 08:22 Dose: 10 u Documented by: Insulin Human Lispro (Humalog Kwikpen (Bkc)) 0 unit SC ACHS [facility]; Protocol Last Admin: 08/11/19 22:27 Dose: 4 u Documented by: Magnesium Hydroxide (Milk Of Magnesia) 30 ml PO DAILY PRN PRN PRN Reason: Constipation Melatonin (Melatonin) 3 mg PO QHS PRN PRN PRN Reason: INSOMNIA Ondansetron HCl (Zofran) 4 mg IV Q8H PRN PRN PRN Reason: NAUSEA/VOMITING Last Admin: 08/12/19 02:18 Dose: 4 mg Documented by: Pantoprazole Sodium (Protonix) 40 mg PO DAILY [facility] Last Admin: 08/11/19 10:41 Dose: 40 mg Documented by: Potassium Chloride (K-Dur) 20 meq PO BIDCM [facility] Last Admin: 08/11/19 16:15 Dose: 20 meq Documented by: Prochlorperazine Edisylate (Compazine Iv) 5 mg IV Q4H PRN PRN PRN Reason: Breakthrough nausea/vomiting Last Admin: 08/08/19 15:58 Dose: 5 mg Documented by: Sodium Chloride () 10 - 40 ml IV UD PRN PRN Reason: SALINE FLUSH Last Admin: 08/10/19 08:19 Dose: 20 ml Documented by: STROKE Vital Signs/Narrative: Vital Signs Temp Pulse Resp BP Pulse Ox 08/12/19 08:12 99.9 F H 69 18 141/72 H 95 08/12/19 07:30 97 Medical Necessity - Tobacco Use Smoking Status: Never smoker Assessment/Plan All Active Problems Pancytopenia (Acute) Acute kidney injury (Acute) Left ureteral calculus (Acute) Hydronephrosis, left (Acute) Urinary tract infection (Acute) Patient is a 53-year-old lady with history of diabetes mellitus type 2 noncompliant with therapy presented with intractable nausea and vomiting 1. Septic shock secondary to acute pyelonephritis with E. coli - Patient on the morning of 08/09/2019 was found to be dyspneic at rest with, tachycardic with elevated temperature. Patient met the criteria for sepsis.. Cultures including acute respiratory viral panel as well as chest x-ray ordered. Patient transferred to the intensive care unit for further management. Patient was also started on broad-spectrum antibiotic therapy ?08/10/2019 suspected to be secondary to urogenital source CT of the abdomen and pelvis obtained demonstrated Moderate left hydronephrosis and left hydroureter. There is a likely obstructing 6 mm calculus within the mid left ureter at the approximate L4 level. There is left perirenal and periureteral stranding . Blood cultures so far positive for gram-negative rods 2 out of 2 bottles. Patient was successfully resuscitated with IV fluids and started on Levophed.Consult placed to ID -08/11/2019 ; Patient underwent cystoscopy and left ureteral stent placement on account of left ureteral calculus with hydronephrosis, urinary tract infection and sepsis on 08/10/[address] Banerjee -08/11/2019: Blood cultures so far positive for E. coli, urine cultures gram- negative rods - 08/12/2019: Blood and urine cultures positive for E. coli. Patient is on appropriate antibiotic therapy. Continues to improve clinically. Do anticipate discharge in 1 to 2 days with oral antibiotics to complete a 14-day therapy for suspected pyelonephritis. Patient overall clinical condition continues to improve. An order was given to discontinue patient's Joshi catheter. 2. Intractable nausea vomiting ?suspected to be secondary to gastritis possibly NSAID induced gastritis patient was taking ibuprofen prior to her admission discontinued. Started on PPI -08/09/2019 patient still remains symptomatic -08/10/2019: Symptoms improving 3. Acute kidney injury -Suspected to be combination of dehydration as well as NSAID induced nephropathy. On IV fluids with subsequent monitoring of electrolyte ?08/09/2019: Kidney function still remains impaired on IV fluids with subsequent monitoring of electrolyte ?08/10/2019; kidney function improving with rehydration 4. Pancytopenia (thrombocytopenia, leukopenia, as well as anemia) ?Differential diagnoses include bone marrow suppression as well as nonalcoholic fatty liver disease. Admitted to regular nursing floor ordered CBC with differential for monitoring consult also placed to oncology ?08/09/2019 patient was seen in consultation by oncology the day prior notes and recommendations reviewed 5. Diabetes mellitus type 2 ?With complications including hyperglycemia as a result of noncompliance. Patient started on Accu-Cheks before meals and at bedtime with sliding scale coverage as well as long-acting insulin. Also placed on 1800 ADA diet and ordered hemoglobin A1c 6. Nonalcoholic fatty liver disease -per history, this may be contributing to patient's pancytopenia 7. Obesity with BMI of 34.9 ?Weight loss advised 8. DVT prophylaxis Did encourage early ambulation avoided the use of chemoprophylaxis in view of patient's low platelet count 9. Nephrolithiasis ?08/10/2019 CT obtained demonstrated Moderate left hydronephrosis and left hydroureter. There is a likely obstructing 6 mm calculus within the mid left ureter at the approximate L4 level ; consult subsequently placed to urology ?08/11/2019: Patient underwent cystoscopy and left ureteral stent placement on account of left ureteral calculus with hydronephrosis, urinary tract infection and sepsis on 08/10/[address] Banerjee 10. 6 mm left lower lobe pleural-based pulmonary opacity - Likely infectious/inflammatory, 6 month follow-up for stability recommended - 08/12/2019: Went over the findings of patient's CAT scan regarding the left lower lobe pleural-based pulmonary opacity one more time in the presence of patient's attending nurse. Patient expressed understanding and the need to follow-up with PCP once discharged for subsequent outpatient work-up 11. Right breast mass Patient to undergo evaluation as outpatient to rule out malignancy -08/12/2019: Went over the findings of patient's CAT scan regarding the right breast one more time in the presence of patient's attending nurse. Patient expressed understanding and the need to follow-up with PCP once discharged for subsequent outpatient work-up 12. Hypokalemia ?Corrected per protocol, monitoring serial BMPs Code Visit Inpatient E&M: 71833 Subs Hosp L2
[2019-08-12] MEDS: Insulin Lispro 100 UNIT/ML INSULN.PEN SC ×4 (08:50→20:55)
[2019-08-12] MEDS: Pantoprazole Sodium 40 MG Tablet PO (10:15)
[2019-08-12 11:30] LABS: Bedside Glucose 223 mg/dL (70-110)
[2019-08-12 15:19] VITALS: BP 140/63; PULSE 68; RESP 16; TEMP 37.1; O2SAT 97
[2019-08-12 17:00] LABS: Bedside Glucose 202 mg/dL (70-110)
[2019-08-12 20:33] VITALS: BP 134/73; PULSE 75; RESP 16; TEMP 36.4; O2SAT 95
[2019-08-12 21:06] LABS: Bedside Glucose 191 mg/dL (70-110)
[2019-08-13 02:51] VITALS: BP 139/76; PULSE 68; RESP 16; TEMP 37.1; O2SAT 96
[2019-08-13 06:33] LABS: Hematocrit 32.1 % (37-47); Hemoglobin 10.6 g/dL (12.0-15.0); Mean Corpuscular Hgb 28.1 pg (27.0-32.0); Mean Corpuscular Volume 85.1 fL (81-99); Mean Platelet Vol. 12.3 fl (6.2-12.0); POSITIVE COUNT YES; Platelet Count 86 K/mm3 (150-450); RBC Distribution Width CV 14.4 % (11.6-14.6); RBC Distribution Width SD 45.2 fl (35.1-43.9); Red Blood Count 3.77 M/mm3 (4.2-5.4); White Blood Count 5.4 K/mm3 (4.4-11.0)
[2019-08-13 06:42] LABS: Anion Gap 7 (5-15); BUN 19 mg/dL (7-18); BUN/Creat Ratio 22.7 RATIO (10-20); Calcium,Total 8.1 mg/dL (8.5-10.1); Chloride 101 mmol/L (98-107); Creatinine, Serum 0.84 mg/dL (0.55-1.02); EST Glomerular Filtration Rate 75 mL/min (>60); Est Glom Filt Rate - Afr Amer 91 mL/min (>60); Estimated Creatinine Clearance 65.35 ml/min; Glucose 170 mg/dL (74-106); Magnesium 1.6 mg/dL (1.6-2.6); Potassium 3.7 mmol/L (3.5-5.1); Sodium Level 136 mmol/L (136-145)
[2019-08-13] MEDS: Insulin Lispro 100 UNIT/ML INSULN.PEN SC ×3 (06:53→17:09)
[2019-08-13 07:00] LABS: Bedside Glucose 172 mg/dL (70-110)
[2019-08-13 07:02] LABS: Scan Indicated on CBC? Y/N YES- FLAGS NOTED
--- NOTE | 2019-08-13 08:18 | PN_ITS ---
Patient Problems: Active and Suspected Problems Pancytopenia (Acute) Acute kidney injury (Acute) Left ureteral calculus (Acute) Hydronephrosis, left (Acute) Urinary tract infection (Acute) Vitals/I&O's: Vital Signs Temp Pulse Resp BP Pulse Ox 98.7 F 68 16 139/76 H 96 08/13/19 02:51 08/13/19 02:51 08/13/19 02:51 08/13/19 02:51 08/13/19 02:51 Oxygen Flow Rate (L/min) 2 Oxygen Delivery Method Room Air Weight: 95.39 kg Body Mass Index (BMI) 35.4 Finger Stick Blood Glucose 218 Intake and Output for Last 24 Hours 08/11/19 08/12/19 08/13/19 23:59 23:59 23:59 Intake Total 1599.5 / 2099.5 2243.50 / 2243.50 1525.25 / 1525.25 Output Total 1525 / 2525 3150 / 3150 850 / 850 Balance 74.5 / -425.5 -906.50 / -906.50 675.25 / 675.25 Microbiology Past 72 Hours 08/10/19 08:20 Blood Culture (Wb) - Right Forearm Blood Culture - Preliminary GNR lactose hair dresser 08/10/19 08:05 Blood Culture (Wb) - Line Draw Blood Culture - Preliminary No growth in 48 hours. 08/10/19 18:35 Urine, Cystoscopy Urine Culture - Preliminary Escherichia coli 08/09/19 08:30 Urine, Catheterized Urine Culture - Final Escherichia coli 08/09/19 07:10 Blood Culture (Wb) - Left Hand Blood Culture - Final GNR lactose hair dresser 08/09/19 07:00 Blood Culture (Wb) - Right Hand Blood Culture - Final Escherichia coli Laboratory Results 08/12/19 11:21: POC Glucose 223 H 08/12/19 16:52: POC Glucose 202 H 08/12/19 20:55: POC Glucose 191 H 08/13/19 05:45: WBC 5.4, RBC 3.77 L, Hgb 10.6 L, Hct 32.1 L, MCV 85.1, MCH 28.1, MCHC 33.0, RDW Std Deviation 45.2 H, RDW Coeff of Divya 14.4, Plt Count 86 L, MPV 12.3 H, Differential Comment COMMENT 08/13/19 05:45: Sodium 136, Potassium 3.7, Chloride 101, Carbon Dioxide 28.0, Anion Gap 7, BUN 19 H, Creatinine 0.84, Estim Creat Clear Calc 65.35, Est GFR (MDRD) Af Amer 91, Est GFR (MDRD) Non-Af 75, BUN/Creatinine Ratio 22.7 H, Glucose 170 H, Calcium 8.1 L, Magnesium 1.6 08/13/19 06:52: POC Glucose 172 H Current Medications Acetaminophen (Tylenol) 650 mg PO Q6H PRN PRN PRN Reason: Pain Score 1-10/Temp > 100.7 F Last Admin: 08/11/19 12:44 Dose: 650 mg Documented by: Acetaminophen (Tylenol) 650 mg RECTAL Q6H PRN PRN PRN Reason: TEMP > 100 Last Admin: 08/09/19 15:46 Dose: 650 mg Documented by: Al Hydroxide/Mg Hydroxide (Mylanta Ii) 30 ml PO Q6H PRN PRN PRN Reason: Gastric Burning Last Admin: 08/11/19 20:10 Dose: 30 ml Documented by: Albuterol/Ipratropium (Duoneb) 3 ml INHALATION Q4H.RT PRN PRN Reason: WHEEZING Glucagon () 1 mg IM .X1 PRN PRN Reason: Hypoglycemia Guaifenesin (Mucinex) 1,200 mg PO BID AKUA Last Admin: 08/12/19 20:48 Dose: 1,200 mg Documented by: Dextrose (Dextrose 10%-Water) 250 mls @ 999 mls/hr IV .Q16M PRN; Protocol PRN Reason: HYPOGLYCEMIA Sodium Chloride () 250 mls @ 15 mls/hr IV .[id number] PRN PRN Reason: Saline Flush Last Infusion: 08/13/19 05:59 Dose: 0 mls/hr Documented by: Sodium Chloride () 250 mls @ 15 mls/hr IV .[id number] PRN PRN Reason: Additional IVPB Infusion Piperacillin Sod/Tazobactam (Sod 3.375 gm/ Sodium Chloride) 50 mls @ 12.5 mls/hr IV Q8 AKUA Last Admin: 08/13/19 05:59 Dose: 12.5 mls/hr Documented by: Insulin Glargine (Lantus (Bk)) 10 units SC BREAKFAST COUNTS INCLUDE 234 BEDS AT THE [facility] Last Admin: 08/12/19 08:49 Dose: 10 u Documented by: Insulin Human Lispro (Humalog Kwikpen (Bk)) 0 unit SC ACHS COUNTS INCLUDE 234 BEDS AT THE [facility]; Protocol Last Admin: 08/13/19 06:53 Dose: 2 u Documented by: Magnesium Hydroxide (Milk Of Magnesia) 30 ml PO DAILY PRN PRN PRN Reason: Constipation Melatonin (Melatonin) 3 mg PO QHS PRN PRN PRN Reason: INSOMNIA Ondansetron HCl (Zofran) 4 mg IV Q8H PRN PRN PRN Reason: NAUSEA/VOMITING Last Admin: 08/12/19 02:18 Dose: 4 mg Documented by: Pantoprazole Sodium (Protonix) 40 mg PO DAILY COUNTS INCLUDE 234 BEDS AT THE [facility] Last Admin: 08/12/19 10:15 Dose: 40 mg Documented by: Potassium Chloride (K-Dur) 20 meq PO BIDCM COUNTS INCLUDE 234 BEDS AT THE [facility] Last Admin: 08/12/19 16:57 Dose: 20 meq Documented by: Prochlorperazine Edisylate (Compazine Iv) 5 mg IV Q4H PRN PRN PRN Reason: Breakthrough nausea/vomiting Last Admin: 08/08/19 15:58 Dose: 5 mg Documented by: Sodium Chloride () 10 - 40 ml IV UD PRN PRN Reason: SALINE FLUSH Last Admin: 08/10/19 08:19 Dose: 20 ml Documented by: Medical Necessity - Tobacco Use Smoking Status: Never smoker Assessment/Plan All Active Problems Pancytopenia (Acute) Acute kidney injury (Acute) Left ureteral calculus (Acute) Hydronephrosis, left (Acute) Urinary tract infection (Acute)
[2019-08-13 09:09] VITALS: BP 123/70; PULSE 73; RESP 18; TEMP 36.6; O2SAT 97
[2019-08-13] MEDS: guaiFENesin 1,200 MG Tablet 1200 MG PO (09:10)
[2019-08-13] MEDS: Pantoprazole Sodium 40 MG Tablet PO (09:11)
--- NOTE | 2019-08-13 10:14 | DCINST_ITS ---
- Discharge Diagnoses Current Active Problems: Current Active and Chronic Problems Pancytopenia (Acute) Acute kidney injury (Acute) DM2 (diabetes mellitus, type 2) (Chronic) BMI 34.0-34.9,adult (Chronic) Left ureteral calculus (Acute) Hydronephrosis, left (Acute) Urinary tract infection (Acute) Reason(s) for Visit for Discharge Instructions: Septic shock, complicated UTI You will use the following diet at home:: Calorie/Carbohydrate Controlled (specify 1200, 1400, etc), Cardiac Your food should be the consistency of: Regular Your liquids should be the consistency of: Regular/Thin Discharge Activity: Return to Normal Activity Instructions: Monitoring Kidney Health, Managing Your Glucose Level for Diabetes and Kidney Disease, Understanding Urinary Tract Infections (UTIs), Urinary Tract Infections in Women Additional Instructions: Continue to keep yourself hydrated. Complete your antibiotics. Remain active Allergies/Adverse Reactions: Allergies metformin [From Glucophage] Adverse Reaction (Verified 08/08/19 06:18) Rash tramadol Adverse Reaction (Verified 08/08/19 06:18) Vomiting Medications to take at Discharge Aspirin [Aspirin, Baby] 81 mg PO DAILY@0800 08/08/19 Multivitamin/Iron/Folic Acid [Centrum Adults Tablet] 1 ea PO DAILY 08/08/19 Ondansetron [Zofran Odt] 4 mg PO Q6H PRN PRN 08/08/19 Pioglitazone HCl 30 mg PO QHS 08/08/19 Ramipril 5 mg PO DAILY 08/08/19 Cefdinir [Omnicef [equiv]] 300 mg PO Q12H 4 Days #8 cap 08/13/19 The following prescriptions were given: Cefdinir [Omnicef [equiv]] 300 mg PO Q12H 4 Days #8 cap Transmission Status: Pending to [facility]/pharmacy #[id number] Primary Care Physician: Care Physician,No Primary [Primary Care Provider] - Test Results: Test results from this visit will be discussed in further detail at your follow- up appointment, if applicable. Please Follow Up With: Davey Crouch MD When: Tuesday Please Follow Up With: Sundeep Norris MD When: Tuesday Please Follow Up With: Anmol Guevara MD When: within 1 week Proposed Discharge Date: 08/13/19
--- NOTE | 2019-08-13 10:20 | PCM.DC.SUM ---
Discharge Date and Diagnosis - Problem List Patient Problems: Active and Suspected Problems Pancytopenia (Acute) Acute kidney injury (Acute) Left ureteral calculus (Acute) Hydronephrosis, left (Acute) Urinary tract infection (Acute) Date of Admission: 08/08/19 Date of Discharge: 08/13/19 - Primary Discharge Diagnosis Active and Suspected Problems Septic shock Acute complicated UTI/E. Coli acute pyelonephritis Intractable nausea and vomiting likely secondary to gastritis Acute kidney injury likely dehydration/NSAID-induced nephropathy Pancytopenia Nephrolithiasis/left hydronephrosis/hydroureter Hypokalemia - Secondary Discharge Diagnosis Chronic Problems DM2 (diabetes mellitus, type 2) (Chronic) BMI 34.0-34.9,adult (Chronic) Hospital Course and Treatment Imaging Results: Clinical Impression(s) from Imaging Studies Renal Ultrasound 08/08/19 08:30 IMPRESSION: The right kidney is smaller than the left, in this otherwise normal bilateral renal ultrasound. Electronically Signed: Yovani Barahona at 12:01 EST Tel , Service support , Chest X-Ray 08/09/19 06:49 IMPRESSION: Normal portable chest. Electronically Signed: Yovani Barahona at 10:29 EST Tel , Service support , Chest X-Ray 08/09/19 11:08 IMPRESSION: Normal portable chest. Electronically Signed: Yovani Barahona at 11:28 EST Tel , Service support , Abdomen/Pelvis CT 08/09/19 17:44 IMPRESSION: Moderate left hydronephrosis and left hydroureter. There is a likely obstructing 6 mm calculus within the mid left ureter at the approximate L4 level. There is left perirenal and periureteral stranding Mild distended loops of small bowel with mild enhancement likely ileus, enteritis pattern most likely. Ischemia cannot be excluded. 1.6 cm soft tissue density within the right breast, most likely dense fibroglandular changes, mass cannot be excluded 1.6 cm left lower lobe pleural-based density most likely benign infectious/inflammatory changes cannot exclude mass Likely cholelithiasis Mild splenomegaly Right renal nephrolithiasis 1.5 cm left ovarian cyst Small amount of free pelvic fluid Joshi catheter within the bladder Electronically Signed: Rene Ye, at 18:56 EST Tel , Service support , Chest CT 08/09/19 17:44 IMPRESSION: Extensive respiratory motion artifact right internal jugular catheter. The tip is in the superior vena cava near the right atrial junction. There is no pneumothorax. 6 mm left lower lobe pleural-based pulmonary opacity likely infectious/inflammatory, 6 month follow-up for stability recommended Mild splenomegaly, the spleen is incompletely included on the [id number] 1.5 cm soft tissue density within the right breast which may be due to focal dense fibroglandular tissue cannot exclude mass. Follow-up mammography is recommended Electronically Signed: Rene Ye, at 18:33 EST Tel , Service support , Urology Critical care Operations: - - s/p cystoscopy and left ureteral stent placement on 08/11/19 Summary of Care Provided: The patient is a 53 year old F with past medical history of type II DM, who presented with intractable nausea and vomiting and was managed as septic shock secondary to acute E. coli pyelonephritis. Was initially managed in the ICU. CT scan of the abdomen and pelvis demonstrated moderate left hydronephrosis with left hydroureter. There was an obstructing 6 mm calculus within the mid left ureter at approximately L4. This was associated with left perirenal and yael-ureteral stranding. He underwent cystoscopy with left ureteral stent placement. Patient's blood and urine cultures came back positive for E. coli. She was managed on IV Zosyn. Patient continued to improve. Her Joshi catheter was removed. She was discharged on 4 more days of cefdinir making a total of 10 days antibiotics. Patient was also found to have acute kidney injury that improved with IV fluids. Sugars were fairly uncontrolled. HbA1c was 7.3, stressed on compliance with medication. Asked patient to follow-up with endocrinology and her primary care doctor. Patient underwent evaluation in the outpatient for right breast mass, she will follow-up with her primary care doctor. Patient Problems: Active and Suspected Problems Pancytopenia (Acute) Acute kidney injury (Acute) Left ureteral calculus (Acute) Hydronephrosis, left (Acute) Urinary tract infection (Acute) Subjective: On the day of discharge, patient was seen and examined. Denied any new complaints. Denied fever or chills or SOB. Objective: Physical exam: - Physical Exam Vitals/I&O's: Vital Signs Temp Pulse Resp BP Pulse Ox 97.9 F 73 18 123/70 H 97 08/13/19 09:09 08/13/19 09:09 08/13/19 09:09 08/13/19 09:09 08/13/19 09:09 Oxygen Flow Rate (L/min) 2 Oxygen Delivery Method Room Air Weight: 95.39 kg Body Mass Index (BMI) 35.4 Finger Stick Blood Glucose 218 Intake and Output for Last 24 Hours 08/11/19 08/12/19 08/13/19 23:59 23:59 23:59 Intake Total 1599.5 / 2099.5 2243.50 / 2243.50 1575.25 / 1575.25 Output Total 1525 / 2525 3150 / 3150 850 / 850 Balance 74.5 / -425.5 -906.50 / -906.50 725.25 / 725.25 General: Alert, Oriented x3, Cooperative, No apparent distress HEENT: Atraumatic, PERRLA, EOMI, Normocephalic Oral: Moist Mucosa Neck: Supple Lungs: Clear to auscultation, Normal air movement Cardiovascular: Regular rate, Regular Rhythm, Normal S1, Normal S2, No murmurs Abdomen: Bowel Sounds Present, Soft, Non Tender, Non-Distended, No Hepato-splenomegaly Extremities: No edema Skin: No rashes, No breakdown Musculoskeletal: No Tenderness to Palpation of Joints or Extremities Lymphatic: No Cervical, Supraclavicular, or Inguinal Adenopathy Neurological: Cranial nerves II-XII grossly intact, Neuro grossly intact Psych/Mental Status: Normal Affect, Appropriate Microbiology Past 72 Hours 08/10/19 18:35 Urine, Cystoscopy Urine Culture - Preliminary Escherichia coli 08/10/19 08:20 Blood Culture (Wb) - Right Forearm Blood Culture - Preliminary GNR lactose youth corrections officer 08/10/19 08:05 Blood Culture (Wb) - Line Draw Blood Culture - Preliminary No growth in 48 hours. 08/09/19 08:30 Urine, Catheterized Urine Culture - Final Escherichia coli 08/09/19 07:10 Blood Culture (Wb) - Left Hand Blood Culture - Final GNR lactose youth corrections officer 08/09/19 07:00 Blood Culture (Wb) - Right Hand Blood Culture - Final Escherichia coli Laboratory Results 08/12/19 11:21: POC Glucose 223 H 08/12/19 16:52: POC Glucose 202 H 08/12/19 20:55: POC Glucose 191 H 08/13/19 05:45: WBC 5.4, RBC 3.77 L, Hgb 10.6 L, Hct 32.1 L, MCV 85.1, MCH 28.1, MCHC 33.0, RDW Std Deviation 45.2 H, RDW Coeff of Divya 14.4, Plt Count 86 L, MPV 12.3 H, Differential Comment COMMENT 08/13/19 05:45: Sodium 136, Potassium 3.7, Chloride 101, Carbon Dioxide 28.0, Anion Gap 7, BUN 19 H, Creatinine 0.84, Estim Creat Clear Calc 65.35, Est GFR (MDRD) Af Amer 91, Est GFR (MDRD) Non-Af 75, BUN/Creatinine Ratio 22.7 H, Glucose 170 H, Calcium 8.1 L, Magnesium 1.6 08/13/19 06:52: POC Glucose 172 H Current Medications Acetaminophen (Tylenol) 650 mg PO Q6H PRN PRN PRN Reason: Pain Score 1-10/Temp > 100.7 F Last Admin: 08/11/19 12:44 Dose: 650 mg Documented by: Acetaminophen (Tylenol) 650 mg RECTAL Q6H PRN PRN PRN Reason: TEMP > 100 Last Admin: 08/09/19 15:46 Dose: 650 mg Documented by: Al Hydroxide/Mg Hydroxide (Mylanta Ii) 30 ml PO Q6H PRN PRN PRN Reason: Gastric Burning Last Admin: 08/11/19 20:10 Dose: 30 ml Documented by: Albuterol/Ipratropium (Duoneb) 3 ml INHALATION Q4H.RT PRN PRN Reason: WHEEZING Glucagon () 1 mg IM .X1 PRN PRN Reason: Hypoglycemia Guaifenesin (Mucinex) 1,200 mg PO BID [facility] Last Admin: 08/13/19 09:10 Dose: 1,200 mg Documented by: Dextrose (Dextrose 10%-Water) 250 mls @ 999 mls/hr IV .Q16M PRN; Protocol PRN Reason: HYPOGLYCEMIA Sodium Chloride () 250 mls @ 15 mls/hr IV .[id number] PRN PRN Reason: Saline Flush Last Infusion: 08/13/19 10:03 Dose: 15 mls/hr Documented by: Sodium Chloride () 250 mls @ 15 mls/hr IV .[id number] PRN PRN Reason: Additional IVPB Infusion Piperacillin Sod/Tazobactam (Sod 3.375 gm/ Sodium Chloride) 50 mls @ 12.5 mls/hr IV Q8 AKUA Last Infusion: 08/13/19 10:02 Dose: Infused Documented by: Magnesium Sulfate 2 gm/ Sodium (Chloride) 104 mls @ 52 mls/hr IV X1 ONE Stop: 08/13/19 12:06 Insulin Glargine (Lantus (Bkc)) 10 units SC BREAKFAST [facility] Last Admin: 08/13/19 09:11 Dose: 10 u Documented by: Insulin Human Lispro (Humalog Kwikpen (Bkc)) 0 unit SC ACHS [facility]; Protocol Last Admin: 08/13/19 06:53 Dose: 2 u Documented by: Magnesium Hydroxide (Milk Of Magnesia) 30 ml PO DAILY PRN PRN PRN Reason: Constipation Melatonin (Melatonin) 3 mg PO QHS PRN PRN PRN Reason: INSOMNIA Ondansetron HCl (Zofran) 4 mg IV Q8H PRN PRN PRN Reason: NAUSEA/VOMITING Last Admin: 08/12/19 02:18 Dose: 4 mg Documented by: Pantoprazole Sodium (Protonix) 40 mg PO DAILY [facility] Last Admin: 08/13/19 09:11 Dose: 40 mg Documented by: Potassium Chloride (K-Dur) 20 meq PO BIDCM [facility] Last Admin: 08/13/19 09:17 Dose: 20 meq Documented by: Prochlorperazine Edisylate (Compazine Iv) 5 mg IV Q4H PRN PRN PRN Reason: Breakthrough nausea/vomiting Last Admin: 08/08/19 15:58 Dose: 5 mg Documented by: Sodium Chloride () 10 - 40 ml IV UD PRN PRN Reason: SALINE FLUSH Last Admin: 08/10/19 08:19 Dose: 20 ml Documented by: Discharge Diet: Low fat/ Low Cholesterol, 1800 Calorie Control Diet, 2000 mg Sodium Diet Discharge Activity: Return to Normal Activity Home Medications: Medications to take at Discharge Aspirin [Aspirin, Baby] 81 mg PO DAILY@0800 08/08/19 Multivitamin/Iron/Folic Acid [Centrum Adults Tablet] 1 ea PO DAILY 08/08/19 Ondansetron [Zofran Odt] 4 mg PO Q6H PRN PRN 08/08/19 Pioglitazone HCl 30 mg PO QHS 08/08/19 Ramipril 5 mg PO DAILY 08/08/19 Cefdinir [Omnicef [equiv]] 300 mg PO Q12H 4 Days #8 cap 08/13/19 Following Prescrptions Were Given to Patient: Cefdinir [Omnicef [equiv]] 300 mg PO Q12H 4 Days #8 cap Transmission Status: Received by [facility]/pharmacy #[id number] Primary Care Physician: Care Physician,No Primary [Primary Care Provider] - Please Follow Up With: Davey Crouch MD When: Tuesday Please Follow Up With: Sundeep Norris MD When: Tuesday Please Follow Up With: Anmol Guevara MD When: within 1 week Patient Instructions: Urinary Tract Infections in Women, Understanding Urinary Tract Infections (UTIs), Monitoring Kidney Health, Managing Your Glucose Level for Diabetes and Kidney Disease Disposition: Home Minutes spent on discharge:: 40 Patient Condition:: Stable Medical Necessity - Tobacco Use Smoking Status: Never smoker Tobacco Use: Non-smoker Meaningful Use Info Meaningful Use Diagnoses (Choose all that apply): None applicable Code Visit Inpatient E&M: 70925 Disch Hosp
[2019-08-13 11:31] LABS: Bedside Glucose 251 mg/dL (70-110)
[2019-08-13 14:02] VITALS: BP 119/63; PULSE 78; RESP 18; TEMP 36.4; O2SAT 98
[2019-08-13 14:04] VITALS: O2SAT 96
[2019-08-13 16:15] LABS: Bedside Glucose 214 mg/dL (70-110)
--- NOTE | 2019-08-14 15:52 | CASEMGMT ---
Case Management DC F/u Call: DC Date: 08/13/2019 DC Diagnosis: Septic shock, Acute complicated UTI/E. Coli acute pyelonephritis, Intractable nausea and vomiting likely secondary to gastritis, Acute kidney injury likely dehydration/NSAID-induced nephropathy, Pancytopenia, Nephrolithiasis/left hydronephrosis/hydroureter, Hypokalemia DC Disposition: Home Lace/Strata: 05/15 Called patient listed cell phone on demographics, no answer, VM did not identify correct identity of patient and therefore no VM was left. Tracy Perry RNCM
== END 2019-08-13 18:43 | disposition home or self-care (01) | DRG 853 ==
LOC: ED 07:37 → MS3 08:04 → ICU 08-09 08:39 → MS3 08-11 16:01
PROVIDERS: Internal Medicine Critical Care Medicine; Nurse Practitioner Family; Student in an Organized Health Care Education/Training Program; Urology; Admitting Provider Internal Medicine; Emergency Provider Emergency Medicine; Visit Provider Internal Medicine
PROC: 0T778DZ Dilation of Left Ureter with Intraluminal Device, Via Natural or Artificial Opening Endoscopic (ICD-10-PCS; principal; 2019-08-10 17:00)
DX: A41.51 Sepsis due to Escherichia coli [E. coli] (principal); R65.21 Severe sepsis with septic shock; N13.6 Pyonephrosis; D61.818 Other pancytopenia; N17.9 Acute kidney failure, unspecified; N10 Acute pyelonephritis; E11.65 Type 2 diabetes mellitus with hyperglycemia; K76.0 Fatty (change of) liver, not elsewhere classified; E66.9 Obesity, unspecified; Z68.35 Body mass index [BMI] 35.0-35.9, adult; Z91.19 Patient's noncompliance with other medical treatment and regimen; N63.10 Unspecified lump in the right breast, unspecified quadrant; E87.6 Hypokalemia; T39.395A Adverse effect of other nonsteroidal anti-inflammatory drugs [NSAID], initial encounter; E86.0 Dehydration; K29.70 Gastritis, unspecified, without bleeding
CPT/HCPCS: 36415; 36600; 71045; 71260; 74177; 76000; 76770; 80048; 80053; 80076; 81001; 82009; 82607; 82728; 82746; 82784; 82803; 82962; 83540; 83550; 83605; 83615; 83690; 83735; 83883; 84165; 84443; 84484; 85025; 85027; 85610; 85730; 86334; 86900; 86901; 86965; 87040; 87077; 87086; 87088; 87186; 87633; 87641; 93306; 93970; 94640; 97802; 99251; 99284; J7030; J7040; J7050; J7120; P9035; Q9957; Q9967; A4216; C1751; C2617; G0463; J2405

== ENCOUNTER → 2019-09-03 10:02 | Outpatient (CLI) | payer BC, SELFPAY ==
[2019-08-16 09:56] VITALS: BMI 35.4
--- NOTE | 2019-09-03 10:05 | RAD_ITS ---
STUDY: X-RAY - ABDOMEN/PELVIS REASON FOR EXAM: Female, 53 years old. ABDOMEN PAIN OFF AND ON. KIDNEY STONE ON THE LEFT. STENT PLACED END OF JUL PER PATIENT. TECHNIQUE: Single AP view of the abdomen / pelvis. COMPARISON: None. FINDINGS: There is an abundance of fecal material throughout the colon. A left-sided double-J stent catheter has been placed. The proximal tip is in the region of the left renal pelvis and the distal tip is in the left side of the bladder. There is a 4.2 mm calculus in the lower pole calyx of the left kidney. Normal soft tissue structures. Normal visualized osseous structures. RAD/Abdomen Single View IMPRESSION: Status post left double-J stent catheter placement. 4.2 mm calculus in the lower pole calyx of the left kidney. Electronically Signed: Leopoldo Watson, at 10:39 EDT , Service support ,
== END ==
PROVIDERS: PCP Internal Medicine; Referring Provider Urology; Visit Provider Urology
DX: N20.1 Calculus of ureter (principal)
CPT/HCPCS: 74018

== ENCOUNTER → 2019-10-03 12:53 | Outpatient (CLI) | payer BC, SELFPAY ==
[2019-08-16 09:56] VITALS: BMI 35.4
[2019-10-03 15:32] LABS: Color, Urine Yellow (Yellow); Glucose, Dipstick Normal (Normal); Ketone-Dipstick Negative (Negative); Leukocyte Esterase-Dipstick 500 /ul (Negative); Nitrite-Dipstick Positive (Negative); Occult Blood-Urine 250 /ul (Negative); Protein-Dipstick 30 mg/dl (Negative); Specific Gravity, Urine 1.015 (1.002-1.030); Urine Bilirubin Dipstick Negative (Negative); Urine Clarity Cloudy (Clear); Urine Urobilinogen Normal (Normal)
== END ==
PROVIDERS: PCP Internal Medicine; Referring Provider Urology; Visit Provider Urology
DX: N39.0 Urinary tract infection, site not specified (principal)
CPT/HCPCS: 81002; 87086; 87088; 87186

== ENCOUNTER 2019-10-09 07:45 | Day surgery (SDC) | payer BC, SELFPAY ==
[2019-08-16 09:56] VITALS: BMI 35.4
[2019-10-09 08:11] VITALS: BP 122/70; PULSE 72; RESP 14; TEMP 36.9; O2SAT 100; BMI 33.8
--- NOTE | 2019-10-09 08:35 | PCM.HP.STD ---
Problem List (1) Left ureteral calculus Status: Acute (2) Hydronephrosis, left Status: Acute History of Present Illness Date of Admission: 10/09/19 Chief Complaint: left ureteral calculus with pain and infection, on antibiotics The patient is a 53 year old F who has undergone a left ureteral stent insertion and treatment with antibiotics for a obstructing left ureteral calculus. She has been having increasing left flank and abdominal pain and has been treated for more than one urinary tract infection. The risks benefits and alternatives were discussed with the patient including the risks of anesthesia, infection, bleeding and injury. This also included risks of the current public health emergency secondary to COVID-19. She understands and agrees to proceed with surgical intervention at this time. Past Medical History Past Medical History (Chronic Problems): Chronic Problems (Last Reviewed 10/09/19 @ 08:[address] Susan Banerjee MD) DM2 (diabetes mellitus, type 2) (Chronic) BMI 34.0-34.9,adult (Chronic) Medical History: Medical History (Last Reviewed 10/09/19 @ 08:[address] Susan Banerjee MD) Pancytopenia (Acute) D61.818 Acute kidney injury (Acute) N17.9 DM2 (diabetes mellitus, type 2) (Chronic) E11.9 BMI 34.0-34.9,adult (Chronic) Z68.34 Left ureteral calculus (Acute) N20.1 Hydronephrosis, left (Acute) N13.30 Urinary tract infection (Acute) N39.0 Allergies pioglitazone [From Actos] Allergy (Verified 10/08/19 09:07) Rash atorvastatin [From Lipitor] Adverse Reaction (Verified 10/08/19 09:07) Other increases liver enzymes fenofibrate [From Tricor] Adverse Reaction (Verified 10/08/19 09:07) Other increased liver enzymes fluticasone [From Flonase] Adverse Reaction (Verified 10/08/19 09:07) Other bloody nose lovastatin Adverse Reaction (Verified 10/08/19 09:07) Other headaches metformin [From Glucophage] Adverse Reaction (Verified 10/08/19 09:07) Rash pravastatin [From Pravachol] Adverse Reaction (Verified 10/08/19 09:07) Other increased liver enzymes simvastatin [From Zocor] Adverse Reaction (Verified 10/08/19 09:07) Other increased liver enzymes tramadol Adverse Reaction (Verified 10/08/19 09:07) Vomiting Home Medications: Ambulatory Orders Medication Instructions Recorded Aspirin [Aspirin, Baby] 81 mg PO DAILY@0800 08/08/19 Multivitamin/Iron/Folic Acid 1 ea PO DAILY 08/08/19 [Centrum Adults Tablet] pioglitazone 30 mg tablet 30 mg PO QHS 30 Days #30 tab 10/04/19 ramipril 5 mg capsule 5 mg PO DAILY 30 Days #30 cap 10/04/19 Cephalexin [Keflex] 500 mg PO TID 10/08/19 Insulin Aspart [Insulin Aspart 10 unit SUBCUT DAILY 10/08/19 Flexpen] Insulin Glargine [Lantus Solostar 6 unit SUBCUT BID 10/08/19 U-100 Insulin] Smoking Status: Never smoker Tobacco Use: Non-smoker - *Family History Maternal History Items: Diabetes Paternal History Items: Diabetes, Heart Disease - Dad from complications of congestive heart failure Review of Systems Constitutional: Reports: Fatigue. Denies: Anorexia, Chills, Fever Eyes: Denies: Blurred vision HEENT: Denies: Difficulty Hearing, Difficulty Swallowing Cardiovascular: Denies: Chest Pain, Chest Pressure, Chest Tightness Respiratory: Denies: Cough, Shortness of Breath Gastrointestinal: Reports: Abdominal Pain, Nausea Genitourinary: Reports: Frequency, Hematuria, Urgency. Denies: Dysuria Musculoskeletal: Denies: Muscle pain Skin: Denies: Wounds Neurological: Denies: Difficulty swallowing Endocrine: Denies: Change in Body Habitus VTE Information - Inpt Only VTE Present on Admission: Yes VTE Mechan Device Prophylaxis: SCD's VTE Pharm Prophylaxis ordered?: No Reason prophylaxis not ordered:: Treatment Not Indicated - Physical Exam Vitals/I&O's: Vital Signs Temp Pulse Resp BP Pulse Ox 98.4 F 72 14 122/70 H 100 10/09/19 08:11 10/09/19 08:11 10/09/19 08:11 10/09/19 08:11 10/09/19 08:11 Oxygen Delivery Method Room Air Weight: 86.6 kg Body Mass Index (BMI) 33.8 Finger Stick Blood Glucose 218 General: Alert, Oriented x3, Cooperative HEENT: Atraumatic, Normocephalic Oral: Moist Mucosa Neck: Supple, Trachea Midline Lungs: Normal air movement Cardiovascular: Regular rate, Regular Rhythm Abdomen: Soft, Non-Distended Extremities: No Calf Tenderness Skin: No rashes Musculoskeletal: No Muscle Wasting Neurological: Cranial nerves II-XII grossly intact Assessment/Plan All Active Problems (Last Reviewed 10/09/19 @ 08:[address] Susan Banerjee MD) Pancytopenia (Acute) Acute kidney injury (Acute) Left ureteral calculus (Acute) Hydronephrosis, left (Acute) Urinary tract infection (Acute) Cystoscopy, left ureteroscopy, holmium laser lithotripsy and left ureteral stent change Essential Procedure Criteria Procedure Essential: Yes Criteria Note: On 08/28/2019 the [place] Department of Health ([facility]) Public Order signed by [facility] Director Rowan Hearn M.D., regarding the Management of Non-Essential Surgeries and Procedures for the purpose of preserving Personal Protective Equipment (PPE) and critical hospital capacity and resources within [place] went into effect as of 08/29/2019 at 5:00PM. According to the [facility] Public Order: This action will remain in full force and effect until the State of Emergency declared by the Governor no longer exists or the Director of the [facility] rescinds or modifies this Order.. This [facility] order stated all non-essential or elective surgeries and procedures that utilize PPE should be delayed unless there is undue risk to the current or future health of a patient. After reviewing the aforementioned [facility] Public Order and the patients clinical case, I have determined that the scheduled procedure meets the criteria to go forward. Risk to Patient if Procedure Delayed: Risk of rapidly worsening to severe symptoms - Recurrent urinary tract infection with injury to the kidney, uncontrolled pain Risk to Patient if Procedure Delayed: Risk of rapidly worsening to severe symptoms if delayed - injury to kidney with infection, pain uncontrolled
[2019-10-09] MEDS: Lactated Ringers 1,000 ML 100 ML IV (08:50)
[2019-10-09 09:11] LABS: Bedside Glucose 174 mg/dL (70-110)
[2019-10-09] MEDS: Cefazolin 2 GM in 0.9% Normal Saline 100 ML IV (09:11)
[2019-10-09 09:42] VITALS: BP 103/59; BP 122/70; PULSE 68; RESP 16; TEMP 36.9; O2SAT 100
[2019-10-09 09:45] VITALS: BP 101/58; BP 122/70; PULSE 66; RESP 18; O2SAT 100
[2019-10-09 09:53] VITALS: BP 103/58; BP 122/70; PULSE 66; RESP 18; O2SAT 100
[2019-10-09 09:56] LABS: Bedside Glucose 167 mg/dL (70-110)
[2019-10-09 10:02] VITALS: BP 102/58; BP 122/70; PULSE 66; RESP 18; TEMP 36.9; O2SAT 100
--- NOTE | 2019-10-09 10:06 | OP.PCM_ITS ---
Problem List (1) Left ureteral calculus Status: Acute (2) Hydronephrosis, left Status: Acute Report of Operation Date of Procedure: 10/09/19 Pre-Operative Diagnosis: left ureteral calculus Post-Operative Diagnosis: same, passed Surgery/Procedure Performed:: cystoscopy,left ureteral stent removal, left ureteroscopy, left retrograde pyelogram Type of Anesthesia:: General Description of Procedure: The patient is a 53-year-old female who developed a left ureteral calculus with obstruction and infection. She underwent a left ureteral stent insertion and was treated for her infection. She has been having uncontrolled pain and now presents for definitive management of her stone. Risks benefits and alternatives were discussed including anesthesia, infection, bleeding and injury. We also discussed the specific risks due to COVID-19 infection. She understood and agreed to proceed. The patient was taken to the operating room and placed on the operating room table. Anesthesia monitored the head, neck, airway, IV access and vital signs throughout the case. Once anesthesia was appropriately administered, the pa tient was placed into dorsal lithotomy position was prepped and draped in usual sterile fashion. A cystoscopy urethroscopy was performed through the urethra. The left ureteral stent was observed, the end was beginning to calcified. A 0.035 Glidewire was passed alongside the stent into the renal pelvis under fluoroscopic visualization. The stent was then removed. Ureteroscopy was performed to the level of the renal pelvis and no stone was visualized. Contrast was then injected in retrograde fashion through the ureteroscope and no filling defects or abnormalities were identified. No stone was visualized on removal of the ureteroscope. The entire length of the ureter was visualized. The stent and the scope were removed and the patient was awakened and taken to the recovery room in good condition. There were no complications during this procedure. Please note that extra precautions were taken secondary to COVID. Grafts/Implants Used: none - Complications none - Admit VTE Documentation VTE Present on Admission: Yes VTE Mechan Device Prophylaxis: SCD's VTE Pharm Prophylaxis ordered?: No Reason prophylaxis not ordered:: Treatment Not Indicated
--- NOTE | 2019-10-09 10:12 | PCM.DC.URO ---
Discharge Diet: Carb Control Diet Discharge Activity: Return to Normal Activity, May not drive while taking narcotic pain medications. May resume sexual activity in: 1 week Call your doctor if you observe: Fever of 101 or Higher, Inability to urinate, Inability to have a bowel movement, Calf discomfort, Uncontrolled pain Allergies/Adverse Reactions: Allergies pioglitazone [From Actos] Allergy (Verified 10/08/19 09:07) Rash atorvastatin [From Lipitor] Adverse Reaction (Verified 10/08/19 09:07) Other increases liver enzymes fenofibrate [From Tricor] Adverse Reaction (Verified 10/08/19 09:07) Other increased liver enzymes fluticasone [From Flonase] Adverse Reaction (Verified 10/08/19 09:07) Other bloody nose lovastatin Adverse Reaction (Verified 10/08/19 09:07) Other headaches metformin [From Glucophage] Adverse Reaction (Verified 10/08/19 09:07) Rash pravastatin [From Pravachol] Adverse Reaction (Verified 10/08/19 09:07) Other increased liver enzymes simvastatin [From Zocor] Adverse Reaction (Verified 10/08/19 09:07) Other increased liver enzymes tramadol Adverse Reaction (Verified 10/08/19 09:07) Vomiting Medications to take at Discharge Aspirin [Aspirin, Baby] 81 mg PO DAILY@0800 08/08/19 Multivitamin/Iron/Folic Acid [Centrum Adults Tablet] 1 ea PO DAILY 08/08/19 pioglitazone 30 mg tablet 30 mg PO QHS 30 Days #30 tab 10/04/19 ramipril 5 mg capsule 5 mg PO DAILY 30 Days #30 cap 10/04/19 Insulin Aspart [Insulin Aspart Flexpen] 10 unit SUBCUT DAILY 10/08/19 Insulin Glargine [Lantus SoloStar Pen] 6 unit SUBCUT BID 10/08/19 Cephalexin [Keflex] 500 mg PO TID #6 cap 10/09/19 The following prescriptions were given: Cephalexin [Keflex] 500 mg PO TID #6 cap Transmission Status: Pending to [facility]/pharmacy #[id number] Primary Care Physician: Davey Crouch MD [Primary Care Provider] - Test Results: Test results from this visit will be discussed in further detail at your follow-up appointment, if applicable. Please Follow Up With: Susan Banerjee MD When: 4 weeks, call office for appt Proposed Discharge Date: 10/09/19
[2019-10-09 10:35] VITALS: BP 113/52; BP 122/70; PULSE 67; RESP 14; TEMP 36.6; O2SAT 99
== END 2019-10-09 10:48 | disposition home or self-care (01) ==
LOC: SDC 07:49 → AC 07:50
PROVIDERS: PCP Internal Medicine; Referring Provider Urology; Visit Provider Urology
PROC: 0TJ98ZZ Inspection of Ureter, Via Natural or Artificial Opening Endoscopic (ICD-10-PCS; CPT 52352; principal; 2019-10-09 09:00)
DX: N13.2 Hydronephrosis with renal and ureteral calculous obstruction (principal); E11.9 Type 2 diabetes mellitus without complications; Z78.0 Asymptomatic menopausal state; Z87.442 Personal history of urinary calculi; Z87.440 Personal history of urinary (tract) infections; Z79.4 Long term (current) use of insulin; Z79.899 Other long term (current) drug therapy
CPT/HCPCS: 52332; 76000; 82962; J7120; J2405

== ENCOUNTER → 2020-08-29 08:29 | Outpatient (CLI) | payer BC, SELFPAY ==
[2020-07-23 10:27] VITALS: BMI 34.1
[2020-08-29 12:39] LABS: Hemoglobin A1c 5.7 % (3.8-5.6)
[2020-08-29 12:42] LABS: Microalbumin,Random Urine 17.8 mg/L (NO RANGE EST.); Microalbumin:Creatinine Ratio 17.9 mg/g CRE (<30 mg/g CRE)
[2020-08-29 12:53] LABS: ALB/GLOB Ratio 1.2 RATIO (0.9-2.4); AST(SGOT) 23 U/L (15-37); Alanine Aminotransfer ALT/SGPT 37 U/L (13-56); Alkaline Phosphatase 84 U/L (45-117); Anion Gap 5 (5-15); BUN 22 mg/dL (7-18); Calcium,Total 8.8 mg/dL (8.5-10.1); Chloride 106 mmol/L (98-107); Cholesterol 208 mg/dL (200); Creatinine, Serum 0.81 mg/dL (0.55-1.02); EST Glomerular Filtration Rate 77 mL/min (>60); Est Glom Filt Rate - Afr Amer 93 mL/min (>60); Globulin 3.3 g/dL (2.2-4.2); Glucose 114 mg/dL (74-106); High Density Lipoprotein 72 mg/dL; Potassium 4.2 mmol/L (3.5-5.1); Protein, Total 7.3 g/dL (6.4-8.2); Sodium Level 140 mmol/L (136-145); Thyroid Stim Hormone (TSH) 2.69 uIU/mL (0.358-3.74); Triglycerides 60 mg/dL; Very Low Density Lipoprotein 12 mg/dL (5-40)
== END ==
PROVIDERS: PCP Internal Medicine; Referring Provider Internal Medicine Endocrinology, Diabetes & Metabolism; Visit Provider Internal Medicine Endocrinology, Diabetes & Metabolism
DX: E11.9 Type 2 diabetes mellitus without complications (principal)
CPT/HCPCS: 36415; 80053; 80061; 82043; 82570; 83036; 84443

== ENCOUNTER → 2021-03-13 11:27 | Outpatient (CLI) | payer BC, SELFPAY ==
[2021-03-13 12:58] LABS: ALB/GLOB Ratio 1.2 RATIO (0.9-2.4); AST(SGOT) 22 U/L (15-37); Alanine Aminotransfer ALT/SGPT 36 U/L (13-56); Albumin, Serum 4.1 g/dL (3.2-5.0); Alkaline Phosphatase 95 U/L (45-117); Anion Gap 3 (5-15); BUN 18 mg/dL (7-18); BUN/Creat Ratio 24.2 RATIO (10-20); Calcium,Total 9.4 mg/dL (8.5-10.1); Chloride 108 mmol/L (98-107); Cholesterol 193 mg/dL (200); Creatinine, Serum 0.74 mg/dL (0.55-1.02); EST Glomerular Filtration Rate 86 mL/min (>60); Est Glom Filt Rate - Afr Amer 104 mL/min (>60); Globulin 3.4 g/dL (2.2-4.2); Glucose 116 mg/dL (74-106); High Density Lipoprotein 55 mg/dL; Potassium 4.4 mmol/L (3.5-5.1); Protein, Total 7.5 g/dL (6.4-8.2); Sodium Level 143 mmol/L (136-145); Triglycerides 83 mg/dL; Very Low Density Lipoprotein 17 mg/dL (5-40)
[2021-03-13 13:01] LABS: Vitamin D,25 Hydroxy 23.2 ng/mL
[2021-03-13 15:31] LABS: Microalbumin,Random Urine 10.1 mg/L (NO RANGE EST.)
== END ==
PROVIDERS: PCP Internal Medicine; Referring Provider Nurse Practitioner Family; Visit Provider Nurse Practitioner Family
DX: E11.649 Type 2 diabetes mellitus with hypoglycemia without coma (principal); Z79.4 Long term (current) use of insulin
CPT/HCPCS: 36415; 80053; 80061; 82043; 82306; 82570

== ENCOUNTER → 2022-03-19 | Outpatient (CLI) | payer BC, SELFPAY ==
[2022-03-19 09:36] LABS: Microalbumin,Random Urine 13.3 mg/L (NO RANGE EST.); Microalbumin:Creatinine Ratio 10.2 mg/g CRE (<30 mg/g CRE)
[2022-03-19 10:00] LABS: Vitamin D,25 Hydroxy 27.7 ng/mL
[2022-03-19 11:49] LABS: ALB/GLOB Ratio 1.1 RATIO (0.9-2.4); AST(SGOT) 28 U/L (15-37); Alanine Aminotransfer ALT/SGPT 37 U/L (13-56); Alkaline Phosphatase 94 U/L (45-117); Anion Gap 7 (5-15); BUN 23 mg/dL (7-18); Calcium,Total 9.2 mg/dL (8.5-10.1); Chloride 107 mmol/L (98-107); Cholesterol 187 mg/dL (200); Creatinine, Serum 0.89 mg/dL (0.55-1.02); EST Glomerular Filtration Rate 70 mL/min (>60); Est Glom Filt Rate - Afr Amer 84 mL/min (>60); Globulin 3.5 g/dL (2.2-4.2); Glucose 141 mg/dL (74-106); High Density Lipoprotein 55 mg/dL; Potassium 4.2 mmol/L (3.5-5.1); Protein, Total 7.5 g/dL (6.4-8.2); Sodium Level 142 mmol/L (136-145); Thyroid Stim Hormone (TSH) 1.75 uIU/mL (0.358-3.74); Triglycerides 101 mg/dL; Very Low Density Lipoprotein 20 mg/dL (5-40)
== END | disposition home or self-care (01) ==
LOC: LAB 08:45
PROVIDERS: PCP Internal Medicine; Visit Provider Internal Medicine Endocrinology, Diabetes & Metabolism
DX: E11.9 Type 2 diabetes mellitus without complications (principal); E78.2 Mixed hyperlipidemia; E55.9 Vitamin D deficiency, unspecified
CPT/HCPCS: 36415; 80053; 80061; 82043; 82306; 82570; 84443

== ENCOUNTER → 2022-10-15 | Outpatient (CLI) | payer BC, SELFPAY ==
[2022-10-15 08:20] LABS: Hemoglobin A1c 7.9 % (3.8-5.6)
== END | disposition home or self-care (01) ==
LOC: LAB 06:24
PROVIDERS: PCP Internal Medicine; Referring Provider Internal Medicine Endocrinology, Diabetes & Metabolism; Visit Provider Internal Medicine Endocrinology, Diabetes & Metabolism
DX: E11.9 Type 2 diabetes mellitus without complications (principal)
CPT/HCPCS: 36415; 83036

== ENCOUNTER → 2023-07-29 | Outpatient (CLI) | payer BC, SELFPAY ==
[2023-07-29 10:16] LABS: Vitamin D,25 Hydroxy 48.9 ng/mL
[2023-07-29 10:26] LABS: ALB/GLOB Ratio 1.1 RATIO (0.9-2.4); AST(SGOT) 24 U/L (15-37); Alanine Aminotransfer ALT/SGPT 34 U/L (13-56); Alkaline Phosphatase 88 U/L (45-117); Anion Gap 4 (5-15); BUN 21 mg/dL (7-18); Calcium,Total 9.1 mg/dL (8.5-10.1); Chloride 111 mmol/L (98-107); Cholesterol 193 mg/dL (200); Creatinine, Serum 0.75 mg/dL (0.55-1.02); EST Glomerular Filtration Rate 84 mL/min (>60); Est Glom Filt Rate - Afr Amer 101 mL/min (>60); Globulin 3.6 g/dL (2.2-4.2); Glucose 111 mg/dL (74-106); High Density Lipoprotein 64 mg/dL; Potassium 3.9 mmol/L (3.5-5.1); Protein, Total 7.6 g/dL (6.4-8.2); Sodium Level 141 mmol/L (136-145); Thyroid Stim Hormone (TSH) 1.21 uIU/mL (0.358-3.74); Triglycerides 73 mg/dL; Very Low Density Lipoprotein 15 mg/dL (5-40)
[2023-07-29 11:16] LABS: Microalbumin,Random Urine 6.8 mg/L (NO RANGE EST.); Microalbumin:Creatinine Ratio 8.7 mg/g CRE (<30 mg/g CRE)
== END | disposition home or self-care (01) ==
LOC: LAB 08:32
PROVIDERS: PCP Internal Medicine; Referring Provider Internal Medicine Endocrinology, Diabetes & Metabolism; Visit Provider Internal Medicine Endocrinology, Diabetes & Metabolism
DX: E11.9 Type 2 diabetes mellitus without complications (principal); I10 Essential (primary) hypertension; E78.2 Mixed hyperlipidemia; E66.9 Obesity, unspecified
CPT/HCPCS: 36415; 80053; 80061; 82043; 82306; 82570; 84443

== ENCOUNTER 2024-01-03 13:48 | Emergency (ER) | payer BC, SELFPAY ==
[2024-01-03 13:50] VITALS: BP 122/67; PULSE 77; RESP 18; TEMP 36.4; O2SAT 98; BMI 36.5
--- NOTE | 2024-01-03 14:10 | VDLE_ITS ---
Reason For Study: Swelling RIGHT LEFT GSV is normal. CFV is compressible, spontaneous, phasic, CFV is compressible, spontaneous, phasic, competent, and demonstrates normal competent and demonstrates normal augmentation. augmentation. FV is compressible, spontaneous, phasic, competent and demonstrates normal augmentation. POP V is compressible, spontaneous, phasic, competent and demonstrates normal augmentation. T/P Trunk is compressible. PTV is compressible. RT PerV is compressible. Procedure This is a venous duplex using B-mode, color flow and spectral Doppler. Exam performed portable in ED. A preliminary report was called and/or faxed to [facility]. VL/Venous Duplex US, Unilateral Interpretation Summary Deep veins of the right lower extremity are patent and compressible segmentally . There is no evidence of right lower extremity deep vein thrombosis. The right great sapheno us vein appears patent and compressible segmentally. Ordering Physician: Cody Hall Referring Physician: Davey Crouch M.D. Performed By: Grace Stewart RVT and Student
--- NOTE | 2024-01-03 14:11 | ED.VIS.LOWEX ---
HPI History of Present Illness Chief Complaint: Edema Narrative Narrative: 58-year-old female presenting with right lower extremity edema. She states been ongoing for the last 3 days. She reports no recent travel, being bedridden or mobilize, history of DVTs, recent surgery, Exogenous hormones, trauma to the area. She is able to ambulate. She states he is actually been working a lot more of the and has been on her feet for 60 hours a week. She states it is not painful. There is no redness or warmth. She does not feel ill and she is in her normal state of health. [facility] Medical History Contact with or exposure to other viral diseases Mixed hyperlipidemia Encounter for screening for COVID-19 URI (upper respiratory infection) Obesity Benign essential hypertension Hemorrhoids Urinary tract infection Hydronephrosis, left Left ureteral calculus BMI 34.0-34.9,adult DM2 (diabetes mellitus, type 2) Acute kidney injury Pancytopenia Home Medications ?Medication ?Instructions ?Recorded ?Last Taken ?Type aspirin 81 mg chewable tablet 81 mg PO DAILY@0800 [facility] 08/08/19 06/09/19 History ascorbic acid (vitamin C) 500 mg mg PO 07/23/20 Unknown History capsule cholecalciferol (vitamin D3) 10 10 mcg PO DAILY 07/23/20 Unknown History mcg (400 unit) capsule cinnamon bark 500 mg capsule 500 mg PO DAILY 07/23/20 Unknown History (Cinnamon) cyanocobalamin (vitamin B-12) 50 50 mcg PO DAILY 07/23/20 Unknown History mcg tablet (Vitamin B-12) cyclobenzaprine 10 mg tablet 10 mg PO HS PRN muscle spasm #14 07/23/20 Unknown Rx tabs multivitamin-ferrous 1 tab PO DAILY supplement 07/23/20 Unknown History fumarate-folic acid 18 mg-400 mcg tablet ibuprofen 600 mg tablet 600 mg PO Q6H PRN 10/15/22 Unknown History Novolog FlexPen U-100 Insulin 100 6 unit (0.06 mL) subcut TID #15 mL 12/23/23 Unknown Rx unit/mL (3 mL) subcutaneous (insulin aspart U-100) empagliflozin 25 mg tablet 25 mg PO DAILY #90 tabs 12/23/23 Unknown Rx (Jardiance) ezetimibe 10 mg tablet (Zetia) 10 mg PO DAILY #90 tabs 12/23/23 Unknown Rx insulin glargine 100 unit/mL (3 10 unit (0.1 mL) subcut QPM #9 mL 12/23/23 Unknown Rx mL) subcutaneous pen (Lantus Solostar U-100 Insulin) ramipril 5 mg capsule 5 mg PO DAILY blood pressure 30 12/23/23 Unknown Rx days #90 caps Allergy/AdvReac Type Severity Reaction Status Date / Time atorvastatin (From Lipitor) AdvReac Other Verified 01/03/24 13:28 fenofibrate (From Tricor) AdvReac Other Verified 01/03/24 13:28 fluticasone (From Flonase) AdvReac Other Verified 01/03/24 13:28 lovastatin AdvReac Other Verified 01/03/24 13:28 metformin (From Glucophage) AdvReac Rash Verified 01/03/24 13:28 pravastatin (From Pravachol) AdvReac Other Verified 01/03/24 13:28 simvastatin (From Zocor) AdvReac Other Verified 01/03/24 13:28 tramadol AdvReac Vomiting Verified 01/03/24 13:28 Family History Other Diabetes Surgical History History of carpal tunnel surgery History of cataract surgery History of tonsillectomy and adenoidectomy Social History Smoking Status: Never smoker alcohol intake: never ROS ROS ED Constitutional Constitutional ED: Denies chills, fever(s) or sweats Eyes Eyes: Denies blurry vision or change in vision ENT ENT ED: Denies ear pain or sore throat Cardiovascular Cardiovascular: Denies chest pain, palpitations or racing heartbeat Respiratory/Chest Respiratory/Chest: Denies cough, dyspnea or sputum Gastrointestinal Gastrointestinal: Denies abdominal pain, constipation, diarrhea, nausea or vomiting Genitourinary Genitourinary ED: Denies dysuria, hematuria or urinary frequency Musculoskeletal Musculoskeletal: Denies arthralgias, myalgias or neck pain Integumentary Reports other Details: Right lower extremity edema ; Denies abscess, Abrasions or rash Neurologic Neurologic: Denies headache(s), paresthesias or weakness Psychiatric Psychiatric: Denies anxiety, depression, suicidal ideation or suicidal thoughts Endocrine Endocrinology: Denies polydipsia or polyuria EXAM Physical Exam Const Vital Signs: 01/03/24 13:50 01/03/24 14:33 Temperature 97.5 F L Temperature Source Temporal Pulse Rate 77 Respiratory Rate 18 Respiratory Effort Normal Respiratory Pattern Normal Blood Pressure 122/67 H Blood Pressure Mean 85 Pulse Ox 98 Oxygen Delivery Method Room Air Positive well nourished General Appearance ED: NAD HEENT Reports moist mucous membranes Eyes PERRL Resp normal respiratory effort Cardio regular rate and regular rhythm Extremity Extremity Narrative: There is noted 2+ pitting edema to the right lower extremity to about the level of the mid upper calf. There is no cords palpated. Her right leg and foot are neurovascular tact. She has brisk cap refill to all 5 toes. Leg. Pedal pulses 2+. Neuro oriented x3 and CN's II-XII intact bilaterally Sensorium / Orientation: alert Motor Exam: strength 5/5 throughout Psych mental status grossly normal MDM MDM MDM Narrative Medical decision making narrative: Patient presenting with right lower extremity edema. She is not having respecters for DVT, however she was sent over from urgent care for duplex. This will be obtained. Patient declines analgesia. Duplex was negative. Patient counseled on compression, ice, elevation. Improvement of symptoms. Follow-up with PCP to ensure resolution. Precautions were discussed. Impression: 1. Right lower extremity edema Lab Data Attestation: I reviewed the patient's lab results. Radiography Diagnostic Testing: Clinical Impression(s) from Imaging Studies Venous Doppler Study 01/03/24 14:10 Interpretation Summary Deep veins of the right lower extremity are patent and compressible segmentally. There is no evidence of right lower extremity deep vein thrombosis. The right great saphenous vein appears patent and compressible segmentally. Ordering Physician: Cody Hall Referring Physician: Davey Crouch M.D. Performed By: Grace Stewart RVT and Student Discharge Plan Triage Chief Complaint: Edema ED Provider: Cody Hall Dx/Rx/DC Orders Instructions: ED Peripheral Edema, Unilateral Prescriptions: No Action cyclobenzaprine 10 mg tablet 10 mg PO HS PRN (Reason: muscle spasm) Qty: 14 0RF cholecalciferol (vitamin D3) 10 mcg (400 unit) capsule 10 mcg PO DAILY Vitamin B-12 50 mcg tablet 50 mcg PO DAILY cinnamon bark [Cinnamon] 500 mg capsule 500 mg PO DAILY ascorbic acid (vitamin C) 500 mg capsule PO ibuprofen 600 mg tablet 600 mg PO Q6H PRN Jardiance 25 mg tablet 25 mg PO DAILY Qty: 90 1RF ezetimibe [Zetia] 10 mg tablet 10 mg PO DAILY Qty: 90 3RF insulin glargine [Lantus Solostar U-100 Insulin] 100 unit/mL (3 mL) insulin pen 10 unit subcut QPM Qty: 9 1RF insulin aspart U-100 [Novolog FlexPen U-100 Insulin] 100 unit/mL (3 mL) insulin pen 6 unit SC TID Qty: 15 5RF ramipril 5 mg capsule 5 mg PO DAILY 30 Days Qty: 90 1RF aspirin 81 MG tablet,chewable 81 mg PO DAILY@0800 [id number] 18-400 mg-mcg tablet 1 tab PO DAILY Primary Care Provider: Davey Crouch Referrals: Davey Crouch MD [Primary Care Provider] - Print Language: Pashto Disposition Disposition: Home, Self Care
== END 2024-01-03 16:05 | disposition home or self-care (01) ==
PROVIDERS: Emergency Provider Student in an Organized Health Care Education/Training Program; PCP Internal Medicine; Visit Provider Student in an Organized Health Care Education/Training Program
DX: R60.0 Localized edema (principal); E11.9 Type 2 diabetes mellitus without complications; Z79.4 Long term (current) use of insulin; I10 Essential (primary) hypertension; Z79.82 Long term (current) use of aspirin; Z79.84 Long term (current) use of oral hypoglycemic drugs; Z79.899 Other long term (current) drug therapy
CPT/HCPCS: 93971; 99282

== ENCOUNTER → 2024-02-04 | Outpatient (CLI) | payer BC, SELFPAY ==
[2024-02-04 07:51] LABS: Absolute Lymphocyte Count 1.02 X10^3/uL (0.83-4.51); Absolute Neutrophil Count 1.7 X10^3/uL (2.0-7.7); Basophil# 0.02 X10^3/uL; Basophil% 0.7 % (0-1); Eosinophil# 0.07 X10^3/uL; Eosinophils% 2.3 % (0-5); Hematocrit 42.6 % (37-47); Hemoglobin 13.8 g/dL (12.0-15.0); Lymphocyte # 1.02 X10^3/ul (0.83-4.51); Lymphocyte % 33.4 % (19-41); Mean Corp Hgb Conc 32.4 g/dL (32-36); Mean Corpuscular Hgb 28.8 pg (27.0-32.0); Mean Corpuscular Volume 88.8 fL (81-99); Mean Platelet Vol. 9.9 fl (6.2-12.0); Monocyte# 0.25 X10^3/uL; Monocyte% 8.2 % (0-10); NRBC Flagged by Analyzer 0 % (0-5); Neutrophil # 1.68 X10^3/uL (2.7-7.7); Neutrophil % 55.1 % (47-70); Platelet Count 150 K/mm3 (150-450); RBC Distribution Width CV 13.7 % (11.6-14.6); RBC Distribution Width SD 44.9 fl (35.1-43.9); White Blood Count 3.1 K/mm3 (4.4-11.0)
[2024-02-04 10:33] LABS: ALB/GLOB Ratio 1.2 RATIO (0.9-2.4); AST(SGOT) 30 U/L (15-37); Alanine Aminotransfer ALT/SGPT 42 U/L (13-56); Albumin, Serum 4.1 g/dL (3.2-5.0); Alkaline Phosphatase 85 U/L (45-117); Anion Gap 4 (5-15); BUN 23 mg/dL (7-18); BUN/Creat Ratio 30.9 RATIO (10-20); Calcium,Total 9.4 mg/dL (8.5-10.1); Chloride 107 mmol/L (98-107); Cholesterol 174 mg/dL (200); Creatinine, Serum 0.74 mg/dL (0.55-1.02); EST Glomerular Filtration Rate 84 mL/min (>60); Est Glom Filt Rate - Afr Amer 102 mL/min (>60); Globulin 3.4 g/dL (2.2-4.2); Glucose 105 mg/dL (74-106); High Density Lipoprotein 65 mg/dL; Potassium 4.3 mmol/L (3.5-5.1); Protein, Total 7.5 g/dL (6.4-8.2); Sodium Level 139 mmol/L (136-145); Triglycerides 77 mg/dL; Very Low Density Lipoprotein 15 mg/dL (5-40)
== END | disposition home or self-care (01) ==
LOC: LAB 07:01
PROVIDERS: PCP Nurse Practitioner Primary Care; Referring Provider Nurse Practitioner Primary Care; Visit Provider Nurse Practitioner Primary Care
DX: E11.9 Type 2 diabetes mellitus without complications (principal); Z79.4 Long term (current) use of insulin
CPT/HCPCS: 36415; 80053; 80061; 85025

== ENCOUNTER 2024-10-13 07:31 | Outpatient (CLI) | payer BC, SELFPAY ==
[2024-10-13 08:49] LABS: ALB/GLOB Ratio 1.9 RATIO (0.9-2.4); AST(SGOT) 31 U/L (<=31); Alanine Aminotransfer ALT/SGPT 37 U/L (<=34); Albumin, Serum 4.5 g/dL (3.4-4.8); Alkaline Phosphatase 81 U/L (35-104); Anion Gap 12 (5-15); BUN 19 mg/dL (4-19); BUN/Creat Ratio 23.7 RATIO (10-20); Calcium,Total 9.5 mg/dL (7.6-11.0); Carbon Dioxide 22.9 mmol/L (21.0-32.0); Chloride 106 mmol/L (98-108); Creatinine, Serum 0.79 mg/dL (0.70-1.20); EST Glomerular Filtration Rate 85 (>60); Globulin 2.4 g/dL (2.2-4.2); Glucose 119 mg/dL (70-99); Potassium 4.4 mmol/L (3.3-5.1); Sodium Level 141 mmol/L (133-145); Total Bilirubin 0.41 mg/dL (0.00-1.30); Vitamin D,25 Hydroxy 42.5 ng/mL (30-100)
[2024-10-13 09:12] LABS: Microalbumin,Random Urine < 12.0 mg/L (NO RANGE EST.); Microalbumin:Creatinine Ratio UNABLE TO CALCULATE mg/g CRE
[2024-10-13 12:12] LABS: Cholesterol 179 mg/dL (<=200); High Density Lipoprotein 53 mg/dL; Low Density Lipoprotein Calc. 101 mg/dL; Triglycerides 125 mg/dL; Very Low Density Lipoprotein 25 mg/dL (5-40); cholesterol:hdl ratio screen 3.39
== END 2024-10-13 23:59 | disposition home or self-care (01) ==
LOC: LAB 07:32
PROVIDERS: Referring Provider Internal Medicine Endocrinology, Diabetes & Metabolism; Visit Provider Internal Medicine Endocrinology, Diabetes & Metabolism
DX: E11.42 Type 2 diabetes mellitus with diabetic polyneuropathy (principal); Z79.4 Long term (current) use of insulin; I10 Essential (primary) hypertension; E78.2 Mixed hyperlipidemia
CPT/HCPCS: 36415; 80053; 80061; 82043; 82306; 82570; 84443

== ENCOUNTER 2024-10-19 13:30 | Outpatient (RCR) | payer BC, SELFPAY ==
--- NOTE | 2024-09-19 15:33 | HP.PTEVAL_ITS ---
Patient's Visit Information Visit Information Visit Information: ALLAN MACEDO is a 58 year old F referred to Physical Therapy by ANNA Cotter with a diagnosis of STRAINOF MUSECL TENDON NECK ,STRAIN OF MUSCLE TENDON OF SHOULDER. Date of Evaluation: 09/19/24 Physical Therapist: Teo Mckeon, PT, Cert MDT, OCS Visit Plan Frequency: 2x /Week Duration: 4 Weeks Plan: PT INTERVENTIONS RTC/SCAPULAR STRENGTHENING ,POSTURAL EX'S , MANUAL THERAPY STM RIGHT UT/LEVAATOR ,AND MODALITIES Subjective Subjective: This 58 y/o female presents to physical therapy with neck and shoulder pain. Patient has shoulder and neck pain pain For~ 1 year . Symptoms worse past several months at work lifting [place] . Patient also had BENTON . [facility] and [facility]. Patient pain located right UT and anterioR shoulder and BENTON at occiput. Symptom worse with lifting OH activities above 90 degree. No cervical pain with movement. Alleviating factors rest. Patient is on light duty at work not repetitive activity above. Denies dizziness /nausea/tinnitus. Patient Pain can affects sleeping right side. No imaging or medication which patient did not take. Patient symptoms ache but doesn't really affect during ADLS Restriction 5 # and only 40 hrs weak. Patient affects QOL and function/job demands. Patient goals to decrease pain. SOCIAL: VOCATION: [employer] Pain Right Shoulder: Pain Intensity (Out of 10): 2 Pain Intensity Range: 10 Comment: upper trap Objective Objective: POSTURE: mild shoulder rounded head forward PALAPTION: UT /levator /paraspinals AROM: shoulder flexion 160 degrees,abduction 160 degrees ,ER 90 ,IR L5 NEURO: denies paresthesia/tingling ,c5-6-7 2/3 CERVICAL ROM: flexion WFL ,extension min rivero , rotation/lateral flexion WFL MMT: 4/5 ,deltoid 4-/5 mild pain Special Tests C/S Radiculapathy - Left Upper limb tension test: Negative C/S Radiculapathy - Right Upper limb tension test: Negative C/S Radiculapathy - Left Spurlings: Negative C/S Radiculapathy - Right Spurlings: Negative C/S Radiculapathy - Left Cervical distraction: Negative C/S Radiculapathy - Right Cervical distraction: Negative Sharp Anahi: Negative Vertebral Artery Test: Negative Alar Ligament Test: Negative Cervical Sitting: Protrusion - Mechanical Response: No effect Cervical Sitting: Protrusion - Symptoms During Testing: No effect Cervical Sitting: Protrusion - Symptoms After Testing: No effect Cervical Sitting: Retraction - Mechanical Response: No effect Cervical Sitting: Retraction - Symptoms During Testing: No effect Cervical Sitting: Retraction - Symptoms After Testing: No effect Cervical Sitting: Retraction-Extension - Mechanical Response: No effect Cerv Sitting: Retraction-Extension - Symptoms During Testing: No effect Cerv Sitting: Retraction-Extension - Symptoms After Testing: No effect Cervical Sitting: Sidebend Right - Mechanical Response: No effect Cervical Sitting: Sidebend Right - Symptoms During Testing: No effect Cervical Sitting: Sidebend Right - Symptoms After Testing: No effect Cervical Sitting: Sidebend Left - Mechanical Response: No effect Cervical Sitting: Sidebend Left - Symptoms During Testing: No effect Cervical Sitting: Sidebend Left - Symptoms After Testing: No effect Cervical Sitting: Rotation Right - Mechanical Response: No effect Cervical Sitting: Rotation Right - Symptoms During Testing: No effect Cervical Sitting: Rotation Right - Symptoms After Testing: No effect Cervical Sitting: Rotation Left - Mechanical Response: No effect Cervical Sitting: Rotation Left - Symptoms During Testing: No effect Cervical Sitting: Rotation Left - Symptoms After Testing: No effect Cervical Sitting: Flexion - Mechanical Response: No effect Cervical Sitting: Flexion - Symptoms During Testing: No effect Cervical Sitting: Flexion - Symptoms After Testing: No effect R Shoulder Empty Can - SS: Negative R Shoulder Belly Press - SupScap: Negative R Shoulder Neer - Impingement: Positive R Shoulder Biceps Load Test - Labrum: Negative R Shoulder Speeds Test - Labrum/Biceps: Negative R Shoulder AC Resisted - AC: Negative Balance/Special Test Scores Quick DASH Score: 31.8175 Goals Goal 1:: Patient to be I with HEP Goal Time Frame: 4-6 Weeks Goal 2:: Patient to demonstrate 70% improvement with less pain and improve function Goal Time Frame: 4-6 Weeks Goal 3:: Patient to increase strength deltoid w/o pain for ADL's and lifting [place]. Goal Time Frame: 4-6 Weeks Goal 4:: Patient to improve quick dash by 3- 5 points to improve function and job demands Goal Time Frame: 4-6 Weeks Goal 5:: Patient to return to fully duty at work without symptoms Goal Time Frame: 4-6 Weeks Rehabilitation Potential Physical Therapy Diagnosis: This patient has right shoulder tendonitis impingement and UT tightness with pain and weakness of shoulder thus benefit from skilled PT Rehabilitation Potential: Good Anticipated Interventions Patient/Client Instruction: Educate patient on: Condition and Plan of Care For the Purpose of:: To decrease pain, To increase ROM, To improve muscle performance and motor function, To improve ability to perform ADL's, To increase tolerance to activity/condition/position, To improve ability of physical actions for home/community/work/leisure, To improve health of tissue, To decrease soft tissue restriction, To increase flexibility/ROM and To improve tolerance to ADL's Therapeutic Exercise to Include: Strength training, Postural training, Flexibilty training, Active ROM and Scapular Strength/Stabilization Comment: RTC For the Purpose of:: To decrease pain, To increase ROM, To improve muscle performance and motor function, To improve ability to perform ADL's, To increase tolerance to activity/condition/position, To improve ability of physical actions for home/community/work/leisure, To improve health of tissue, To decrease soft tissue restriction, To increase flexibility/ROM and To improve tolerance to ADL's Manual Therapy Techniques to Include: Soft tissue mobilization Comment: NECK UT/LEVATOR For the Purpose of:: To decrease pain, To increase ROM, To improve nutrient delivery to tissue, To increase oxygenation perfusion, To improve health of tissue, To decrease soft tissue restriction and To improve tolerance to ADL's TENS: Yes IF ES: Yes Cryotherapy (ice pack, ice massage): Yes Thermo therapy (hot pack): Yes Ultrasound (thermal/non thermal): Yes For the Purpose of:: To decrease pain, To increase ROM, To improve nutrient delivery to tissue, To increase oxygenation perfusion, To improve health of tissue and To decrease soft tissue restriction Text: Thank you for the opportunity to evaluate your patient. For Medicare and Medicare HMO plans, please review the plan of care and approve it. It will need to be FAXED BACK to us at [phone] for Medicare purposes. For Medicare only, by signing this I certify the plan of care. Please let me know if there are questions or concerns regarding this plan of care. Physician Signature: Date:
--- NOTE | 2024-10-19 13:59 | HP.PTDCSUM ---
Discharge Summary D/C summary: It has been my pleasure to treat ALLAN MACEDO referred by ANNA Cotter, with the diagnosis of STRAINOF MUSECL TENDON NECK ,STRAIN OF MUSCLE TENDON OF SHOULDER for a total of 9 visit(s). Discharge Date: 10/19/24 Please see the following information for a summary of their discharge status. Subjective Subjective: Patient is doing good Able to do work w/o pain No problems with housework tasks Pain Right Shoulder: Pain Intensity (Out of 10): 0 Overall Improvement % Improvement: 100 Objective Objective/Function: Objective: POSTURE: mild shoulder rounded head forward PALAPTION: UT /levator /paraspinals AROM: shoulder flexion 160 degrees,abduction 160 degrees ,ER 90 ,IR L5 NEURO: denies paresthesia/tingling ,C5-6-7 2/3 CERVICAL ROM: flexion WFL ,extension min rivero , rotation/lateral flexion WFL MMT: 4/5 ,deltoid 4/5 Goals Goal 1:: Patient to be I with HEP Goal Progress: Goal Met Goal 2:: Patient to demonstrate 70% improvement with less pain and improve function Goal Progress: Goal Met Goal 3:: Patient to increase strength deltoid w/o pain for ADL's and lifting [place]. Goal Progress: Goal Met Goal 4:: Patient to improve quick dash by 3- 5 points to improve function and job demands Goal Progress: Goal Met Goal 5:: Patient to return to fully duty at work without symptoms Goal Progress: Goal Met Plan Plan: D/C D/C Information Discharge Comments: HEP d/c sentence: If there are questions or concerns regarding this patient's physical therapy, please feel free to call me at [phone]. Thank you for the referral of this patient. Sincerely, Teo Mckeon, PT, Cert MDT, OCS Balance/Gait/Functional tests Balance/Special Test Scores Quick DASH Score: 2.2725 Improvement % Improvement: 100
== END 2024-10-19 19:00 | disposition home or self-care (01) ==
LOC: PT 13:30
PROVIDERS: PCP Nurse Practitioner Primary Care; Referring Provider Physician Assistant; Visit Provider Physician Assistant
DX: S16.1XXD Strain of muscle, fascia and tendon at neck level, subsequent encounter (principal); S46.811D Strain of other muscles, fascia and tendons at shoulder and upper arm level, right arm, subsequent encounter; S46.911D Strain of unspecified muscle, fascia and tendon at shoulder and upper arm level, right arm, subsequent encounter
CPT/HCPCS: 97110; 97162; 97530